=== PATIENT | male | born 1950 | race Caucasian/White ===

== ENCOUNTER 2019-11-30 19:43 | Inpatient (IN) | payer MEDICARE ==
[2019-11-30 20:10] LABS: BASOPHILS % (AUTO) 0.5 %; EOSINOPHILS # (AUTO) 0.2 10^3/uL (0.0-0.7); EOSINOPHILS % (AUTO) 1.9 %; HGB - HEMOGLOBIN 12.7 g/dL (14.0-18.0); LYMPHOCYTES # (AUTO) 2.2 10^3/uL (1.5-3.5); LYMPHOCYTES % (AUTO) 27.8 %; MEAN CORPUSCULAR HEMOGLOBIN 31.4 pg (27.0-31.0); MEAN CORPUSCULAR HGB CONC 34.2 g/dL (32.0-36.0); MEAN CORPUSCULAR VOLUME 91.6 fL (80.0-94.0); MEAN PLATELET VOLUME 9.3 fL (7.4-11.4); MONOCYTES # (AUTO) 0.5 10^3/uL (0.0-1.0); MONOCYTES % (AUTO) 6.4 %; NEUTROPHILS # (AUTO) 4.9 10^3/uL (1.5-6.6); NEUTROPHILS % (AUTO) 63.1 %; PLT - PLATELET COUNT 343 10^3/uL (130-450); RED BLOOD COUNT 4.05 10^6/uL (4.70-6.10); RED CELL DISTRIBUTION WIDTH 12.1 % (12.0-15.0); WHITE BLOOD COUNT 7.8 x10^3/uL (4.8-10.8)
[2019-11-30 20:23] LABS: ALBUMIN/GLOBULIN RATIO 1.2 (1.0-2.2); BILIRUBIN,TOTAL 0.9 mg/dL (0.2-1.0); CREATININE 0.9 mg/dL (0.6-1.2); TOTAL PROTEIN 7.3 g/dL (6.7-8.2)
[2019-11-30] MEDS ORDERED: IOVERSOL 320 100 ML VIAL IVP ONE ×2 (20:27→21:21)
[2019-11-30] MEDS ORDERED: FAMOTIDINE 20 MG TABLET PO STA (20:33)
[2019-11-30] MEDS ORDERED: MAG HYDROX/AL HYDROX/SIMETH 30 ML UDC PO STA (20:33)
[2019-11-30] MEDS ORDERED: LIDOCAINE VISCOUS 2% 15 ML UDC MM STA (20:33)
[2019-11-30] MEDS ORDERED: SUCRALFATE 1 GM/10 ML UDC PO STA (20:33)
--- NOTE | 2019-11-30 20:34 | ED Physician Documentation ---
PD HPI ABD PAIN - Stated complaint Stated Complaint: VOMITING/IRREGULAR BLOOD PRESSURE - Chief complaint Chief Complaint: Abd Pain - History obtained from History obtained from: Patient - History of Present Illness Timing - onset: How many days ago (3) Timing - duration: Days (3) Timing - details: Gradual onset Pain level max: 7 Pain level now: 6 Quality: Aching, Pain Location: Epigastric Radiation: No: Chest, , Lower back, Left flank, Left shoulder, Right flank, Right shoulder, Upper back Improved by: Eating Worsened by: Other (Nothing) Associated symptoms: Nausea, Vomiting. No: Fever, Hematemesis, Diarrhea, Constipation Recently seen: Not recently seen - Additional information Additional information: 68-year-old male with stage IV prostate cancer presents to the emergency department with epigastric pain. He states it does not bother him in the morning, but worsens throughout the day. He has been taking Prilosec and Tums without relief. Has had vomiting as well. No fevers. No abdominal distention. Review of Systems Ten Systems: 10 systems reviewed and negative Constitutional: denies: Fever, Chills Throat: denies: Sore throat Cardiac: denies: Chest pain / pressure Respiratory: denies: Cough GI: denies: Nausea, Vomiting, Diarrhea : denies: Dysuria Skin: denies: Rash Musculoskeletal: denies: Neck pain, Back pain Neurologic: denies: Headache PD PAST MEDICAL HISTORY - Past Medical History Past Medical History: Yes Other Past Medical History: prostate cancer - Past Surgical History Past Surgical History: No - Allergies Allergies/Adverse Reactions: Allergies Allergy/AdvReac Type Severity Reaction Status Date / Time No Known Drug Allergies Allergy Verified 11/30/19 19:50 - Living Situation Living Situation: reports: With family Living Arrangement: reports: At home - Social History Does the pt have substance abuse?: No - Family History Family history: reports: Non contributory PD ED PE NORMAL - Vitals Vital signs reviewed: Yes - General General: Alert and oriented X 3, No acute distress - HEENT HEENT: Moist mucous membranes - Neck Neck: Supple, no meningeal sign - Cardiac Cardiac: RRR - Respiratory Respiratory: No respiratory distress, Clear bilaterally - Abdomen Abdomen: Soft, Non tender, Non distended Results - Vitals Vitals: Vital Signs - 24 hr 11/30/19 11/30/19 19:47 20:29 Temperature 36.8 C Heart Rate 97 90 Respiratory 18 21 Rate Blood Pressure 205/102 H 191/117 H O2 Saturation 98 100 Oxygen O2 Source Room air - Labs Labs: Laboratory Tests 11/30/19 11/30/19 11/30/19 20:04 20:04 20:04 WBC 7.8 RBC 4.05 L Hgb 12.7 L Hct 37.1 L MCV 91.6 MCH 31.4 H MCHC 34.2 RDW 12.1 Plt Count 343 MPV 9.3 Neut # (Auto) 4.9 Lymph # (Auto) 2.2 [place] # (Auto) 0.5 Eos # (Auto) 0.2 Baso # (Auto) 0.0 Absolute Nucleated RBC 0.00 Nucleated RBC % 0.0 Sodium 139 Potassium 3.3 L Chloride 101 Carbon Dioxide 27 Anion Gap 11.0 BUN 15 Creatinine 0.9 Estimated GFR (MDRD) 84 L Glucose 148 H Calcium 9.0 Total Bilirubin 0.9 AST 13 ALT 10 Alkaline Phosphatase 64 Troponin I High Sens 4.5 Total Protein 7.3 Albumin 4.0 Globulin 3.3 Albumin/Globulin Ratio 1.2 Lipase 35 - Rads (name of study) CT abd/pelvis Radiology: Prelim report reviewed, EMP read contemporaneously, See rad report (Gallbladder wall thickening with mild surrounding inflammatory changes, concerning for developing cholecystitis. Innumerable diffuse sclerotic osseous metastases. ) PD MEDICAL DECISION MAKING - ED course Complexity details: reviewed results, re-evaluated patient, considered differential, d/w patient ED course: 68-year-old male presents to the emergency department with epigastric pain for the past several days. Appears to have cholecystitis on CT scan. Ultrasound was ordered as well. Discussed the case with Dr. Rodriguez, general surgery who will place the patient in the hospital. We will start on IV antibiotics. Pain well controlled. No fever. He is on Xarelto for a DVT in the right upper extremity several years ago when his prostate cancer was first diagnosed. This document was made in part using voice recognition software. While efforts are made to proofread this document, sound alike and grammatical errors may occur. Departure - Departure Disposition: ED Place in Observation Clinical Impression: Cholecystitis Hypertension Qualifiers: Hypertension type: unspecified Qualified Code(s): I10 - Essential (primary) hypertension Condition: Stable
[2019-11-30] MEDS ORDERED: HYDROmorphone 1 MG/ML SYRINGE IVP STA (21:34)
--- NOTE | 2019-11-30 21:34 | CT Report ---
Reason: epigastric pain, vomiting, prostate CA Procedure Date: 11/30/2019 Accession Number: [id number] / [id number] Procedure: CT - Abdomen/Pelvis W CPT Code: Final Report FULL RESULT: EXAM: CT ABDOMEN AND PELVIS EXAM DATE: 11/30/2019 09:18 PM. CLINICAL HISTORY: Epigastric pain, vomiting, prostate CA. COMPARISONS: None. TECHNIQUE: Routine helical CT imaging was performed through the abdomen and pelvis. IV contrast: OPTIRAY 320. Enteric contrast: No. Reconstructions: Coronal and sagittal. In accordance with CT protocol optimization, one or more of the following dose reduction techniques were utilized for this exam: automated exposure control, adjustment of mA and/or KV based on patient size, or use of iterative reconstructive technique. FINDINGS: ABDOMEN: Lung Bases: Incompletely included lower lungs demonstrate scattered atelectasis. Heart size is within normal limits. No basilar effusions. Liver: 7 mm low attenuating lesion, likely a cyst. Spleen: Unremarkable. Pancreas: Unremarkable. Gallbladder/Bile Ducts: Gallbladder demonstrates mild wall thickening and pericholecystic inflammatory changes. Small cystic change in the gallbladder fundus could reflect adenomyomatosis. Biliary tree is normal caliber. Adrenal Glands: Unremarkable. Kidneys: Right kidney is unremarkable. Left upper renal scarring. Peritoneum/Mesentery/Bowel: No free fluid, free air, or collection. No intestinal obstruction or inflammation. The appendix is within normal limits. Lymph nodes: No mesenteric, periportal, or retroperitoneal lymphadenopathy. Vasculature: Abdominal aorta is nonaneurysmal. Portal vein is patent. Hepatic veins are patent. PELVIS: The bladder is unremarkable for the degree of distention. Prostate is present. No pelvic lymphadenopathy. Bones: Innumerable sclerotic metastatic lesions throughout the visualized osseous structures. IMPRESSION: Gallbladder wall thickening with mild surrounding inflammatory changes, concerning for developing cholecystitis. Innumerable diffuse sclerotic osseous metastases. RADIA
[2019-11-30] MEDS ORDERED: PIPERACILLIN/TAZOBACTAM 4.5 GM in SODIUM CHLORIDE 0.9% MINIBAG 100 ML IV STA (21:49)
[2019-11-30 21:54] LABS: BILIRUBIN,URINE NEGATIVE (NEGATIVE); GLUCOSE, URINE (UA) NEGATIVE (NEGATIVE); KETONES,URINE (UA) NEGATIVE (NEGATIVE); LEUKOCYTE ESTERASE, URINE NEGATIVE (NEGATIVE); NITRITE,URINE NEGATIVE (NEGATIVE); OCCULT BLOOD,URINE NEGATIVE (NEGATIVE); PROTEIN,URINE NEGATIVE (NEGATIVE); UROBILINOGEN,URINE 1 (NORMAL) E.U./dL (NORMAL)
[2019-11-30 22:04] LABS: CLARITY,URINE CLEAR (CLEAR)
--- NOTE | 2019-11-30 22:45 | Ultrasound Report ---
Reason: RUQ abd pain Procedure Date: 11/30/2019 Accession Number: [id number] / [id number] Procedure: US - Abdomen Limited CPT Code: Final Report FULL RESULT: EXAM: ABDOMEN ULTRASOUND LIMITED, RUQ EXAM DATE: 11/30/2019 10:24 PM. CLINICAL HISTORY: RUQ abd pain. COMPARISON: None. TECHNIQUE: Real-time scanning was performed with static images obtained. FINDINGS: Liver: Mildly echogenic and heterogeneous. 90.1 cm. Main portal vein flow: Mild wall thickening. Gallbladder sludge. Reported positive sonographic Capellan sign. 1 cm non-mobile echogenic structure, likely polyp. Gallbladder: No stones, wall thickening, or sonographic Capellan's sign. Biliary System: CBD measures 4 mm. No intrahepatic ductal dilatation. Other: Right kidney demonstrates no hydronephrosis. Visualized portions of the pancreas are unremarkable. IMPRESSION: Findings suspicious for cholecystitis, with wall thickening, sludge, and a positive sonographic Capellan sign. Surgical consultation is recommended. 1 cm gallbladder polyp. Mild hepatic steatosis. RADIA
[2019-11-30] MEDS ORDERED: ONDANSETRON 4 MG/2 ML VIAL IVP PRN (23:03)
--- NOTE | 2019-11-30 23:04 | CONSULTATION NOTE ---
Referring Provider Name of Referring Provider:: ED Dr. Byers Consult Date: 11/30/19 Chief Complaint - Chief Complaint Chief Complaint: abdominal pain History of Present Illness - Admitted From Admitted From:: ED - History Obtained From History obtained from: pt and chart - History of Present Illness HPI Comment/Other: Heidi 68yo M presents to the hospital with a week of progressive and new abdominal pain. He came in today primarily because his blood pressure was 200/100s and had been increasing all week with his pain. He describes his pain as worsening through the day, starting as a 'bubble' or pressure in [place] area then becoming a sharper pain after lunch; one day he did not eat and pain was not as bad. He notices it most after meals. Has never had similar pain. Started prilosec last week and has taken tums and baking soda thinking it was heartburn or an ulcer but this has only minimally helped. Has had minimal nausea and vomiting. On presentation to the ED, his BP was 200/100s. It has persisted in the 180- 190s/100s for the past few hours. It does not run this high normally and he thinks it is due to the pain. Labs are largely normal with no leukocytosis and normal liver enzymes but CT is suggestive of cholecystitis. His exam is consistent with this. US is pending to confirm. Of note, pt is on oral chemo meds for stage IV prostate cancer and xarelto for a DVT. He has had no abdominal surgeries. History - Past Medical History Cardiovascular: reports: Hypertension, Deep vein thrombosis Respiratory: reports: None Neuro: reports: None Endocrine/Autoimmune: reports: None GI: reports: None : reports: Other (prostate cancer) HEENT: reports: None Psych: reports: None Musculoskeletal: reports: Other (bone mets) Derm: reports: None Other Past Medical History: prostate cancer - Family & Social History Living arrangement: At home Living Situation: With family - Substance History Use: Uses substance without health or social issues: NONE Meds/Allgy - Allergies Allergies/Adverse Reactions: Allergies Allergy/AdvReac Type Severity Reaction Status Date / Time No Known Drug Allergies Allergy Verified 11/30/19 19:50 Review of Systems - Cardiovascular Cariovascular: reports: Other (severe hypertension) - Gastrointestinal Gastrointestinal: reports: Abdominal pain, Nausea, Vomiting - Hematologic/Lymphatic Hematologic/Lymphatic: reports: Blood clots - All Other Systems All Other Systems: reports: Reviewed and negative Exam - Vital Signs Reviewed Vital Signs: Yes Vital Signs: Vital Signs x48h Temp Pulse Resp BP Pulse Ox 11/30/19 22:09 80 23 168/103 H 100 11/30/19 20:29 90 21 191/117 H 100 11/30/19 19:47 36.8 C 97 18 205/102 H 98 - Physical Exam Comments/Other: AAO, NAD, overweight male EOMI, MMM, no scleral icterus unlabored RA abd soft, no distension, ttp RUQ and R flank; no abdominal incisions MAEW visible skin warm, dry, and intact Conclusion and Plan - Lab Results Laboratory Results 11/30/19 21:45: Urine Color YELLOW, Urine Clarity CLEAR, Urine pH 7.0, Ur Specific [place] 1.010, Urine Protein NEGATIVE, Urine Glucose (UA) NEGATIVE, Urine Ketones NEGATIVE, Urine Occult Blood NEGATIVE, Urine Nitrite NEGATIVE, Urine Bilirubin NEGATIVE, Urine Urobilinogen 1 (NORMAL), Ur Leukocyte Esterase NEGATIVE, Ur Microscopic Review NOT INDICATED, Urine Culture Comments NOT INDICATED 11/30/19 20:04: Troponin I High Sens 4.5 11/30/19 20:04: Sodium 139, Potassium 3.3 L, Chloride 101, Carbon Dioxide 27, Anion Gap 11.0, BUN 15, Creatinine 0.9, Estimated GFR (MDRD) 84 L, Glucose 148 H, Calcium 9.0, Total Bilirubin 0.9, AST 13, ALT 10, Alkaline Phosphatase 64, Total Protein 7.3, Albumin 4.0, Globulin 3.3, Albumin/Globulin Ratio 1.2, Lipase 35 11/30/19 20:04: WBC 7.8, RBC 4.05 L, Hgb 12.7 L, Hct 37.1 L, MCV 91.6, MCH 31.4 H, MCHC 34.2, RDW 12.1, Plt Count 343, MPV 9.3, Neut # (Auto) 4.9, Lymph # (Auto) 2.2, [place] # (Auto) 0.5, Eos # (Auto) 0.2, Baso # (Auto) 0.0, Absolute Nucleated RBC 0.00, Nucleated RBC % 0.0 - Diagnostic Imaging Results Diagnostic Imaging Results: positive: Final report reviewed, Read contemporaneously - Diagnosis Diagnosis: Cholecystitis. Hypertensive Urgency. Coagulopathy - Plan Plan: Cholecystitis - history, exam, and imaging suggestive of acute cholecystitis - plan for lap prema this admission, pt understands and is agreeable to plan - hopefully tomorrow pending improvement of hypertension; NPO after midnight Coagulopathy - due to Xarelto for DVT, did take today - hold in preparation for surgery Hypertensive Urgency - severe hypertension, per pt present all week due to pain and is not his baseline - medicine to assess and manage, appreciate assistance Stage IV Pancreatic Cancer - on daily PO meds - start once able but pt does not have his meds with him; plan per medicine team
--- NOTE | 2019-11-30 23:15 | HISTORY & PHYSICAL EXAMINATION ---
Chief Complaint - Chief Complaint Chief Complaint: abdominal pain History of Present Illness - Admitted From Admitted From:: [facility] - History Obtained From Records Reviewed: yes History obtained from: patient - History of Present Illness HPI Comment/Other: Patient is a 68 y/o male with prostate cancer metastatic to bone. He is on chemotherapy and had radiation as recently as 1 week ago. His oncologist is Dr Valencia with [facility]. He presented to the ED with complain of right upper quadrant abdominal pain and pain in his upper sternum. His symptoms started 5 days ago, and seemed to be worse a few hours after most meals. He reports pain with deep inspiration, nausea and vomiting with these episodes. After 5 days of these symptoms it became unbearable so he sought medical attention. He reported associated elevation in his blood pressure with these episodes with reading as high as an SBP of 195 at home. In the ED work up included a CT and US of abd/pelvis which suggested cholecystitis. He has history of a right upper extremity DVT for which he was put on xarelto. It was a first and only occurrence of a blood clot but he has been on xarelto for about 1 year now. he last took it at 7pm on 11/30/2019. He was presented for admission by the hospitalist service in light of his co-morbidities. Currently he denies any pain, however he had just been give some pain medication. History - Past Medical History Cardiovascular: reports: Hypertension, Deep vein thrombosis Respiratory: reports: None Neuro: reports: None Endocrine/Autoimmune: reports: None GI: reports: None : reports: Other (prostate cancer) HEENT: reports: None Psych: reports: None Musculoskeletal: reports: Other (bone mets) Derm: reports: None Other Past Medical History: prostate cancer with mets to bone - Past Surgical History Ortho: reports: Other (left ankle surgery with screws) - Family & Social History Family History Comment/Other: father: Hx of aneurysm and stroke Living arrangement: At home Living Situation: With family - Substance History Use: Uses substance without health or social issues: NONE - POLST Patient has POLST: No POLST Status: Full Code Meds/Allgy - Allergies Allergies/Adverse Reactions: Allergies Allergy/AdvReac Type Severity Reaction Status Date / Time No Known Drug Allergies Allergy Verified 11/30/19 19:50 Review of Systems - Constitutional Constitutional: denies: Fatigue, Fever, Chills - Eyes Eyes: denies: Pain, Vision loss - Ears, Nose & Throat Ears, Nose & Throat: denies: Vertigo, Sore throat - Cardiovascular Cariovascular: denies: Chest pain, Lightheadedness, Exertional dyspnea - Respiratory Respiratory: denies: Cough, Sputum production, Wheezing, SOB at rest, SOB with exertion - Gastrointestinal Gastrointestinal: reports: Abdominal pain, Nausea, Vomiting. denies: Constipation, Diarrhea, Coffee grounds emesis, Reflux/heartburn - Genitourinary Genitourinary: denies: Dysuria, Frequency, Urgency, Hematuria - Musculoskeletal Musculoskeletal: denies: Muscle pain, Back pain, Muscle aches - Integumentary Integumentary: denies: Rash, Pruritis, Lesions, Dryness - Neurological Neurological: denies: General weakness, Headache, Dizziness - Psychiatric Psychiatric: denies: Depression, Anxiety - Endocrine Endocrine: denies: Polyuria, Polydypsia - Hematologic/Lymphatic Hematologic/Lymphatic: denies: Anemia, Bruising, Petechiae Prior Level of Functionality: He is very independent of activities of daily living and very active Exam - Vital Signs Vital Signs: Vital Signs x48h Temp Pulse Resp BP Pulse Ox 11/30/19 22:09 80 23 168/103 H 100 11/30/19 20:29 90 21 191/117 H 100 11/30/19 19:47 36.8 C 97 18 205/102 H 98 - Physical Exam General Appearance: positive: Alert, Mild distress Eyes Bilateral: positive: PERRL, EOMI ENT: positive: No signs of dehydration Neck: positive: No JVD, Trachea midline Respiratory: positive: Chest non-tender, No respiratory distress, Breath sounds nml. negative: Wheezes, Rales, Rhonchi Cardiovascular: positive: Regular rate & rhythm, No murmur Abdomen: positive: Nml bowel sounds, Tenderness (RUQ). negative: Guarding, Rebound Back: positive: Nml inspection Skin: positive: Color nml, Warm, Dry Extremities: positive: Non-tender, Full ROM, Nml appearance Neurologic/Psychiatric: positive: Oriented x3, Mood/affect nml Conclusion/Plan - Problem List (1) Cholecystitis Conclusion/Plan: Acute Patient NPO. On IV hydration with normal saline Pain management prn General Surgery (Dr Rodriguez) consulted Patient's last dose of xarelto was 7pm on 11/30/19. Recommendation is to wait at least 2 days after last dose before surgery. Patient's EKG shows Q waves suggestive of ol infarct. Patient denies knowledge of cardiac history Will order a stress test as part of pre-op eval (2) Hypertension Conclusion/Plan: Likely exacerbated by pain Labetalol prn for SBP> 160 Qualifiers: Hypertension type: unspecified Qualified Code(s): I10 - Essential (primary) hypertension (3) Prostate cancer metastatic to bone Conclusion/Plan: On oral chemotherapy s/p recent radiation Patient sees Dr Valencia at [facility] - Lab Results Fish Bones: 12/01/19 04:59 12/01/19 04:59 Core Measures - Anticipated LOS I expect patient to be DC'd or transferred within 96 hours.: Yes - DVT/VTE - Prophylaxis VTE/DVT Device ordered at admit?: Yes
--- NOTE | 2019-12-01 00:25 | XRAY Report ---
Reason: pre-op eval Procedure Date: 11/30/2019 Accession Number: [id number] / [id number] Procedure: XR - Chest 1 View X-Ray CPT Code: 04249 Final Report FULL RESULT: EXAM: CHEST RADIOGRAPHY EXAM DATE: 11/30/2019 11:49 PM. CLINICAL HISTORY: Pre-op eval. COMPARISON: None. TECHNIQUE: 1 view. FINDINGS: Lungs/Pleura: No focal opacities evident. No pleural effusion. No pneumothorax. Mediastinum: Within exam limitations, the cardiomediastinal contour is normal. Other: None. IMPRESSION: Normal single view chest. RADIA
[2019-12-01] MEDS: SODIUM CHLORIDE FLUSH 0.9% 10 ML SYRINGE IVP SCH ×3 (00:31→16:04)
[2019-12-01] MEDS: SODIUM CHLORIDE 0.9% 1,000 ML IV SCH ×3 (00:31→22:04)
[2019-12-01] MEDS: HYDROmorphone 0.5 MG/0.5 ML SYRINGE IVP PRN ×3 (00:49→17:29)
[2019-12-01] MEDS ORDERED: PIPERACILLIN/TAZOBACTAM 3.375 GM in SODIUM CHLORIDE 0.9% MINIBAG 100 ML IV SCH (03:00)
[2019-12-01] MEDS: PIPERACILLIN/TAZOBACTAM 3.375 GM in SODIUM CHLORIDE 0.9% MINIBAG 100 ML IV SCH ×3 (04:59→20:59)
[2019-12-01 05:06] LABS: BASOPHILS % (AUTO) 0.6 %; EOSINOPHILS # (AUTO) 0.2 10^3/uL (0.0-0.7); EOSINOPHILS % (AUTO) 2.1 %; HGB - HEMOGLOBIN 11.4 g/dL (14.0-18.0); LYMPHOCYTES # (AUTO) 1.9 10^3/uL (1.5-3.5); LYMPHOCYTES % (AUTO) 26.3 %; MEAN CORPUSCULAR HEMOGLOBIN 31.2 pg (27.0-31.0); MEAN CORPUSCULAR HGB CONC 34.7 g/dL (32.0-36.0); MEAN CORPUSCULAR VOLUME 90.1 fL (80.0-94.0); MEAN PLATELET VOLUME 9.2 fL (7.4-11.4); MONOCYTES # (AUTO) 0.6 10^3/uL (0.0-1.0); MONOCYTES % (AUTO) 8.2 %; NEUTROPHILS # (AUTO) 4.5 10^3/uL (1.5-6.6); NEUTROPHILS % (AUTO) 62.4 %; PLT - PLATELET COUNT 284 10^3/uL (130-450); RED BLOOD COUNT 3.65 10^6/uL (4.70-6.10); RED CELL DISTRIBUTION WIDTH 11.9 % (12.0-15.0); WHITE BLOOD COUNT 7.2 x10^3/uL (4.8-10.8)
[2019-12-01 05:15] LABS: CALCIUM 8.1 mg/dL (8.5-10.3); CREATININE 0.8 mg/dL (0.6-1.2)
[2019-12-01] MEDS: SODIUM CHLORIDE FLUSH 0.9% 10 ML SYRINGE IVP PRN (06:20)
[2019-12-01] MEDS: PANTOPRAZOLE 40 MG VIAL IVP SCH (06:20)
[2019-12-01] MEDS: DOCUSATE SODIUM 250 MG CAPSULE PO SCH (08:32)
--- NOTE | 2019-12-01 13:09 | PROVIDER PROGRESS NOTE ---
Assessment/Plan - Problem List (1) Cholecystitis Assessment/Plan: The plan is for GB surgery after the Xarelto has worn off for about 48 hours, therefore 12/03/19 would be his surgery, if he can be safely delayed. Gen surgery is following along. He is npo, getting gentle iv hydration and prn pain meds. Empiric iv antibiotics also ordered. (2) Abnormal EKG Assessment/Plan: The EKG showed inferior Q waves and posterior Q waves (early R/S transition), suggesting an old MO. He denies any past Hx of CAD, has never had a stress test. His risk factors for coronary artery disease are: male gender, HTN, unknown cholesterol status, and family history of cerebrovascular disease. He should undergo a stress test for cardiac risk assessment. If it is abnormal, his surgery may need to be done at another center, with coronary catherization before the surgery. (3) Pre-op evaluation Assessment/Plan: As above. The patient is agreeable to have a stress test today. (4) Hypertension Qualifiers: Hypertension type: unspecified Qualified Code(s): I10 - Essential (primary) hypertension Assessment/Plan: BP is still up news intern=mittently, even when he is not in pain. Will start iv Hydralazine for treatment. (5) Hypokalemia Assessment/Plan: Possibly this is from poor dietary intake for a week, due to the cholycystitis. His Med List is not reconciled yet, in fact it lists no meds whatsoever, so it is unknown if he is on po meds that may cause potassium loss (like a diuretic for HTN tx for example). Replace with iv K riders. Follow BMP daily. (6) Prostate cancer metastatic to bone Assessment/Plan: He gets chemo orally, unknown what med, which would currently be on hold anyway due to his npo status. (7) Hx of deep venous thrombosis Assessment/Plan: This was a first DVT but he has been on the Xarelto for nearly a year. Presumably this is because he is hypercoagulable from having a history of malignancy. - Current Meds Current Meds: Current Medications Generic Name Dose Route Start Last Admin Trade Name Freq PRN Reason Stop Dose Admin Docusate Sodium 250 - 500 mg 12/01/19 09:00 12/01/19 08:32 Colace 250mg Capsule PO 500 mg DAILY PHILIP Administration Hydromorphone HCl 0.5 mg 11/30/19 23:03 12/01/19 00:49 Dilaudid Inj Syringe IVP 0.5 mg Q2H PRN Administration Pain 8 to 10 Sodium Chloride 1,000 mls @ 100 mls/hr 11/30/19 23:45 12/01/19 10:22 Normal Saline 0.9% IV 100 mls/hr .Q10H PHILIP Administration Piperacillin Sod/Tazobactam 100 mls @ 25 mls/hr 12/01/19 05:00 12/01/19 09:55 Sod 3.375 gm/ Sodium Chloride IV Infused Q8H PHILIP Infusion Pantoprazole Sodium 40 mg 12/01/19 07:00 12/01/19 06:20 Protonix IVP 40 mg QDAC PHILIP Administration Sodium Chloride 10 ml 11/30/19 23:03 12/01/19 06:20 Normal Saline Flush 0.9% IVP 30 ml PRN PRN Administration NEEDED PER PROVIDER ORDERS Sodium Chloride 10 ml 12/01/19 01:00 12/01/19 08:32 Normal Saline Flush 0.9% IVP 10 ml 0100,0900,1700 PHILIP Administration - Lab Result Fish Bone Diagrams: 12/01/19 04:59 12/01/19 04:59 - Additional Planning My Orders: My Active Orders 12/01/19 14:00 Potassium Chloride/Water 10 mEq/100 mL q1h (Enter # of bags) Potassium Chlor 10 Meq/100 ml [Potassium Chloride] 10 meq in 100 ml IV Q1H Subjective - Subjective Patient Reports: No Complaints, Other (He specifically does not want to eat, since it has caused his RUQ pain for many days.) Objective Vital Signs: Vital Signs - 24 hr 11/30/19 11/30/19 11/30/19 19:47 20:29 22:09 Temperature 36.8 C Heart Rate 97 90 80 Heart Rate [ Brachial] Respiratory 18 21 23 Rate Blood Pressure 205/102 H 191/117 H 168/103 H Blood Pressure [Right Brachial artery] O2 Saturation 98 100 100 12/01/19 12/01/19 12/01/19 00:33 00:35 08:00 Temperature 37.0 C 37.0 C 36.7 C Heart Rate 71 Heart Rate [ 77 69 Brachial] Respiratory 17 18 18 Rate Blood Pressure Blood Pressure 159/81 H 169/89 H [Right Brachial artery] O2 Saturation 98 97 97 Oxygen O2 Source Room air I&O (Last 24 Hrs): Intake and Output Totals x24h 11/29/19 11/30/19 12/01/19 23:59 23:59 23:59 Intake Total 100 1085 Output Total 450 525 Balance -350 560 General: Alert, Oriented x3 HEENT: Mucous membr. moist/pink Neck: Supple, No JVD Neuro: Alert, Non Focal Cardiovascular: Regular rate, No murmurs Respiratory: No respiratory distress, Breath sounds nml Abdomen: Soft, No tenderness, Other (No guarding or rebound) Extremities: No edema - Results Results: Laboratory Results WBC 7.2 x10^3/uL (4.8-10.8) 12/01/19 04:59 RBC 3.65 10^6/uL (4.70-6.10) L 12/01/19 04:59 Hgb 11.4 g/dL (14.0-18.0) L 12/01/19 04:59 Hct 32.9 % (42.0-52.0) L 12/01/19 04:59 MCV 90.1 fL (80.0-94.0) 12/01/19 04:59 MCH 31.2 pg (27.0-31.0) H 12/01/19 04:59 MCHC 34.7 g/dL (32.0-36.0) 12/01/19 04:59 RDW 11.9 % (12.0-15.0) L 12/01/19 04:59 Plt Count 284 10^3/uL (130-450) 12/01/19 04:59 MPV 9.2 fL (7.4-11.4) 12/01/19 04:59 Neut # (Auto) 4.5 10^3/uL (1.5-6.6) 12/01/19 04:59 Lymph # (Auto) 1.9 10^3/uL (1.5-3.5) 12/01/19 04:59 [place] # (Auto) 0.6 10^3/uL (0.0-1.0) 12/01/19 04:59 Eos # (Auto) 0.2 10^3/uL (0.0-0.7) 12/01/19 04:59 Baso # (Auto) 0.0 10^3/uL (0.0-0.1) 12/01/19 04:59 Absolute Nucleated RBC 0.00 x10^3/uL 12/01/19 04:59 Nucleated RBC % 0.0 /100WBC 12/01/19 04:59 Sodium 140 mmol/L (135-145) 12/01/19 04:59 Potassium 3.2 mmol/L (3.5-5.0) L 12/01/19 04:59 Chloride 104 mmol/L (101-111) 12/01/19 04:59 Carbon Dioxide 28 mmol/L (21-32) 12/01/19 04:59 Anion Gap 8.0 (6-13) 12/01/19 04:59 BUN 13 mg/dL (6-20) 12/01/19 04:59 Creatinine 0.8 mg/dL (0.6-1.2) 12/01/19 04:59 Estimated GFR (MDRD) 96 (>89) 12/01/19 04:59 Glucose 111 mg/dL (70-100) H 12/01/19 04:59 Calcium 8.1 mg/dL (8.5-10.3) L 12/01/19 04:59 Total Bilirubin 0.9 mg/dL (0.2-1.0) 11/30/19 20:04 AST 13 IU/L (10-42) 11/30/19 20:04 ALT 10 IU/L (10-60) 11/30/19 20:04 Alkaline Phosphatase 64 IU/L (42-121) 11/30/19 20:04 Troponin I High Sens 4.5 ng/L (2.3-19.7) 11/30/19 20:04 Total Protein 7.3 g/dL (6.7-8.2) 11/30/19 20:04 Albumin 4.0 g/dL (3.2-5.5) 11/30/19 20:04 Globulin 3.3 g/dL (2.1-4.2) 11/30/19 20:04 Albumin/Globulin Ratio 1.2 (1.0-2.2) 11/30/19 20:04 Lipase 35 U/L (22-51) 11/30/19 20:04 Urine Color YELLOW 11/30/19 21:45 Urine Clarity CLEAR (CLEAR) 11/30/19 21:45 Urine pH 7.0 PH (5.0-7.5) 11/30/19 21:45 Ur Specific [place] 1.010 (1.002-1.030) 11/30/19 21:45 Urine Protein NEGATIVE mg/dL (NEGATIVE) 11/30/19 21:45 Urine Glucose (UA) NEGATIVE mg/dL (NEGATIVE) 11/30/19 21:45 Urine Ketones NEGATIVE mg/dL (NEGATIVE) 11/30/19 21:45 Urine Occult Blood NEGATIVE (NEGATIVE) 11/30/19 21:45 Urine Nitrite NEGATIVE (NEGATIVE) 11/30/19 21:45 Urine Bilirubin NEGATIVE (NEGATIVE) 11/30/19 21:45 Urine Urobilinogen 1 (NORMAL) E.U./dL (NORMAL) 11/30/19 21:45 Ur Leukocyte Esterase NEGATIVE (NEGATIVE) 11/30/19 21:45 Ur Microscopic Review NOT INDICATED 11/30/19 21:45 Urine Culture Comments NOT INDICATED 11/30/19 21:45
[2019-12-01] MEDS ORDERED: REGADENOSON 0.4 MG/5 ML SYRINGE IVP ONE ×2 (13:25→14:54)
[2019-12-01] MEDS ORDERED: AMINOPHYLLINE 250 MG/10 ML VIAL ONE (13:26)
--- NOTE | 2019-12-01 14:10 | PROVIDER PROGRESS NOTE ---
Assessment/Plan - Problem List (1) Cholecystitis Assessment/Plan: Acute Cholecystitis, clinically improving with medical management. Rec: continue with cardiac evaluation, NPO, IV antibiotics; surgery on 12/02 after rivaroxiban effects have worn off and cleared for surgery by hospitalists. - Current Meds Current Meds: Current Medications Generic Name Dose Route Start Last Admin Trade Name Freq PRN Reason Stop Dose Admin Docusate Sodium 250 - 500 mg 12/01/19 09:00 12/01/19 08:32 Colace 250mg Capsule PO 500 mg DAILY PHILIP Administration Hydromorphone HCl 0.5 mg 11/30/19 23:03 12/01/19 13:54 Dilaudid Inj Syringe IVP 0.5 mg Q2H PRN Administration Pain 8 to 10 Sodium Chloride 1,000 mls @ 100 mls/hr 11/30/19 23:45 12/01/19 13:57 Normal Saline 0.9% IV 0 mls/hr .Q10H PHILIP Infusion Piperacillin Sod/Tazobactam 100 mls @ 25 mls/hr 12/01/19 05:00 12/01/19 09:55 Sod 3.375 gm/ Sodium Chloride IV Infused Q8H PHILIP Infusion Pantoprazole Sodium 40 mg 12/01/19 07:00 12/01/19 06:20 Protonix IVP 40 mg QDAC PHILIP Administration Sodium Chloride 10 ml 11/30/19 23:03 12/01/19 06:20 Normal Saline Flush 0.9% IVP 30 ml PRN PRN Administration NEEDED PER PROVIDER ORDERS Sodium Chloride 10 ml 12/01/19 01:00 12/01/19 08:32 Normal Saline Flush 0.9% IVP 10 ml 0100,0900,1700 PHILIP Administration - Lab Result Lab results reviewed: Yes Fish Bone Diagrams: 12/01/19 04:59 12/01/19 04:59 - Diagnostic Imaging Results Diagnostic Imaging Results: Final report reviewed Diagnostic Imaging Results Comments: imaging studies show thickened gallbladder wall with 1 cm polyp vs stone; nl bile ducts. - Additional Planning Condition/Complexity: Improved Time Spent: 15-30 minutes Subjective - Subjective Patient Reports: Feeling Better, Resting Comfortably, Abdominal Pain (improved; no n/v) Objective Vital Signs: Vital Signs - 24 hr 11/30/19 11/30/19 11/30/19 19:47 20:29 22:09 Temperature 36.8 C Heart Rate 97 90 80 Heart Rate [ Brachial] Respiratory 18 21 23 Rate Blood Pressure 205/102 H 191/117 H 168/103 H Blood Pressure [Right Brachial artery] O2 Saturation 98 100 100 12/01/19 12/01/19 12/01/19 00:33 00:35 08:00 Temperature 37.0 C 37.0 C 36.7 C Heart Rate 71 Heart Rate [ 77 69 Brachial] Respiratory 17 18 18 Rate Blood Pressure Blood Pressure 159/81 H 169/89 H [Right Brachial artery] O2 Saturation 98 97 97 Oxygen O2 Source Room air I&O (Last 24 Hrs): Intake and Output Totals x24h 11/29/19 11/30/19 12/01/19 23:59 23:59 23:59 Intake Total 100 1443.333 Output Total 450 525 Balance -350 918.333 General: Alert, Oriented x3, Cooperative, No acute distress HEENT: Mucous membr. moist/pink Neck: No JVD Neuro: Alert Cardiovascular: Regular rate, Normal S1, Normal S2, No murmurs Respiratory: Chest non-tender, No respiratory distress, Breath sounds nml Abdomen: Normal bowel sounds, Soft, No hepatospenomegaly, No masses, Other (tender in RUQ to deep palpation and with inspiration/mildly + Capellan's sign) Extremities: No edema, No tenderness/swelling - Results Results: Laboratory Results WBC 7.2 x10^3/uL (4.8-10.8) 12/01/19 04:59 RBC 3.65 10^6/uL (4.70-6.10) L 12/01/19 04:59 Hgb 11.4 g/dL (14.0-18.0) L 12/01/19 04:59 Hct 32.9 % (42.0-52.0) L 12/01/19 04:59 MCV 90.1 fL (80.0-94.0) 12/01/19 04:59 MCH 31.2 pg (27.0-31.0) H 12/01/19 04:59 MCHC 34.7 g/dL (32.0-36.0) 12/01/19 04:59 RDW 11.9 % (12.0-15.0) L 12/01/19 04:59 Plt Count 284 10^3/uL (130-450) 12/01/19 04:59 MPV 9.2 fL (7.4-11.4) 12/01/19 04:59 Neut # (Auto) 4.5 10^3/uL (1.5-6.6) 12/01/19 04:59 Lymph # (Auto) 1.9 10^3/uL (1.5-3.5) 12/01/19 04:59 Petroleum # (Auto) 0.6 10^3/uL (0.0-1.0) 12/01/19 04:59 Eos # (Auto) 0.2 10^3/uL (0.0-0.7) 12/01/19 04:59 Baso # (Auto) 0.0 10^3/uL (0.0-0.1) 12/01/19 04:59 Absolute Nucleated RBC 0.00 x10^3/uL 12/01/19 04:59 Nucleated RBC % 0.0 /100WBC 12/01/19 04:59 Sodium 140 mmol/L (135-145) 12/01/19 04:59 Potassium 3.2 mmol/L (3.5-5.0) L 12/01/19 04:59 Chloride 104 mmol/L (101-111) 12/01/19 04:59 Carbon Dioxide 28 mmol/L (21-32) 12/01/19 04:59 Anion Gap 8.0 (6-13) 12/01/19 04:59 BUN 13 mg/dL (6-20) 12/01/19 04:59 Creatinine 0.8 mg/dL (0.6-1.2) 12/01/19 04:59 Estimated GFR (MDRD) 96 (>89) 12/01/19 04:59 Glucose 111 mg/dL (70-100) H 12/01/19 04:59 Calcium 8.1 mg/dL (8.5-10.3) L 12/01/19 04:59 Total Bilirubin 0.9 mg/dL (0.2-1.0) 11/30/19 20:04 AST 13 IU/L (10-42) 11/30/19 20:04 ALT 10 IU/L (10-60) 11/30/19 20:04 Alkaline Phosphatase 64 IU/L (42-121) 11/30/19 20:04 Troponin I High Sens 4.5 ng/L (2.3-19.7) 11/30/19 20:04 Total Protein 7.3 g/dL (6.7-8.2) 11/30/19 20:04 Albumin 4.0 g/dL (3.2-5.5) 11/30/19 20:04 Globulin 3.3 g/dL (2.1-4.2) 11/30/19 20:04 Albumin/Globulin Ratio 1.2 (1.0-2.2) 11/30/19 20:04 Lipase 35 U/L (22-51) 11/30/19 20:04 Urine Color YELLOW 11/30/19 21:45 Urine Clarity CLEAR (CLEAR) 11/30/19 21:45 Urine pH 7.0 PH (5.0-7.5) 11/30/19 21:45 Ur Specific [place] 1.010 (1.002-1.030) 11/30/19 21:45 Urine Protein NEGATIVE mg/dL (NEGATIVE) 11/30/19 21:45 Urine Glucose (UA) NEGATIVE mg/dL (NEGATIVE) 11/30/19 21:45 Urine Ketones NEGATIVE mg/dL (NEGATIVE) 11/30/19 21:45 Urine Occult Blood NEGATIVE (NEGATIVE) 11/30/19 21:45 Urine Nitrite NEGATIVE (NEGATIVE) 11/30/19 21:45 Urine Bilirubin NEGATIVE (NEGATIVE) 11/30/19 21:45 Urine Urobilinogen 1 (NORMAL) E.U./dL (NORMAL) 11/30/19 21:45 Ur Leukocyte Esterase NEGATIVE (NEGATIVE) 11/30/19 21:45 Ur Microscopic Review NOT INDICATED 11/30/19 21:45 Urine Culture Comments NOT INDICATED 11/30/19 21:45 ABX Reporting Has patient been on IV antibiotics over the past 48 hours?: No
[2019-12-01] MEDS: POTASSIUM CHLOR 10 MEQ/100 ML 10 MEQ/100 ML BAG IV SCH ×3 (14:54→17:13)
--- NOTE | 2019-12-01 15:49 | Nuclear Medicine Report ---
Reason: abnormal ekg Procedure Date: 12/01/2019 Accession Number: [id number] / [id number] Procedure: NM - Myocardial Perfusion STR/RST CPT Code: Final Report FULL RESULT: EXAM: SINGLE-ISOTOPE PHARMACOLOGICAL STRESS TEST WITH REGADENOSON. SINGLE-ISOTOPE AND ONE-DAY REST/STRESS MYOCARDIAL PERFUSION SCANS WITH TOMOGRAPHIC IMAGING, QUANTITATIVE ANALYSIS, WALL MOTION ANALYSIS AND CALCULATION OF EJECTION FRACTION. EXAM DATE: 12/01/2019 03:07 PM. CLINICAL HISTORY: Abnormal ekg. preoperative evaluation. COMPARISON: None. TECHNIQUE: After the intravenous administration of 10.3 mCi of Tc-99m sestamibi, a rest myocardial perfusion scan was done with tomography. Motion correction was applied when appropriate. After an appropriate delay, pharmacological stress was performed with the infusion of 0.4 mg regadenoson per protocol. According to protocol, 42.8 mCi of Tc-99m sestamibi was injected for stress myocardial perfusion scan. Motion correction was applied when appropriate. Gated tomographic images were obtained for wall motion analysis and computation of left ventricular ejection fraction. FINDINGS: Perfusion images: Left ventricular chamber size appears normal at rest and unchanged at stress. No convincing fixed perfusion deficits. Probable moderate inferior wall diaphragmatic attenuation artifact. No convincing reversible perfusion deficits. SSS 12, SRS 6, SDS 6. Gated images: No convincing focal wall motion abnormality. Calculated left ventricular EDV 115 mL, ESV 47 mL. The left ventricular ejection fraction is estimated at 59% (normal > 50%). IMPRESSION: 1. No convincing reversible perfusion deficits to indicate stress-induced ischemia. 2. No convincing fixed perfusion deficits. 3. Left ventricular ejection fraction of 59% (normal > 50%). Please correlate findings with stress ECG tracings and procedure notes. RADIA
[2019-12-01] MEDS ORDERED: hydrALAZINE INJ 20 MG/ML VIAL ONE (15:57)
[2019-12-01] MEDS: hydrALAZINE INJ 20 MG/ML VIAL IVP SCH (15:57)
--- NOTE | 2019-12-01 16:46 | CARDIAC PROCEDURE NOTE ---
DATE OF SERVICE: 12/01/2019 Physician: Vickie Metz MD INDICATION: Abnormal EKG. CARDIAC RISK FACTORS: Male gender, hypertension, family history of cerebrovascular disease, unknown cholesterol status. DESCRIPTION OF PROCEDURE: After signing informed consent, the patient underwent a Lexiscan pharmaceutical stress test with nuclear myocardial perfusion imaging. RESTING HEART RATE: 77. PEAK HEART RATE: 109. RESTING BLOOD PRESSURE: 178/98. PEAK BLOOD PRESSURE: 184/96. Lexiscan was infused per protocol. The patient developed brief flushing and shortness of breath, followed by brief chest pressure that he rated 3/10. It resolved spontaneously. There was no nausea. Oxygen saturation was 94-98% on room air throughout the entire test. RESTING EKG: Normal sinus rhythm, deep inferior Q waves with biphasic/flat inferior T waves and also Q waves present in V4 through V6, which could be secondary to LVH voltage, which is present. There is also early R/S transition suggestive of a posterior ME. EKG AT PEAK: New flattening of T waves in leads V4 through V6. SUMMARY 1. Abnormal resting EKG. 2. Ischemic changes do develop with pharmacological stress. 3. Hypertension, poorly controlled. 4. Nuclear images reported separately. 5. This patient's cardiac risk based on the above: High. TD: 12/01/2019 16:23 [email or web address]
--- NOTE | 2019-12-01 16:56 | PHARMACY PROGRESS NOTE ---
- Best Possible Medication History Admit Date and Time: 11/30/19 7925 Processed by: Pharmacy Medication History completed: Yes Patient Interview: Completed (Per patient: has taken 's rx at home - hydralazine (per pt: not his outpatient prescribed med, no insurance fill record for this drug)- does not know dose) Secondary Source(s): Insurance records As the person ultimately responsible for medication therapy, providers are able to order a medication from an existing home medication list in [facility] via the "Reconcile Routine" prior to Confirmation of that medication by manufacturing support engineer. Such practice is discouraged except when the physician, in their clinical judgment, deems that a medical need exists for a medication without regard to previous use.
[2019-12-01] MEDS: LABETALOL 20 MG/4 ML SYRINGE IVP PRN (18:55)
[2019-12-02] MEDS: hydrALAZINE INJ 20 MG/ML VIAL IVP SCH ×4 (00:08→23:38)
[2019-12-02] MEDS: SODIUM CHLORIDE FLUSH 0.9% 10 ML SYRINGE IVP SCH ×4 (00:13→23:39)
[2019-12-02] MEDS: HYDROmorphone 0.5 MG/0.5 ML SYRINGE IVP PRN ×6 (01:10→20:35)
[2019-12-02] MEDS: PIPERACILLIN/TAZOBACTAM 3.375 GM in SODIUM CHLORIDE 0.9% MINIBAG 100 ML IV SCH ×3 (04:46→20:35)
[2019-12-02 05:04] LABS: BASOPHILS % (AUTO) 0.3 %; EOSINOPHILS # (AUTO) 0.4 10^3/uL (0.0-0.7); EOSINOPHILS % (AUTO) 4.3 %; LYMPHOCYTES # (AUTO) 2.1 10^3/uL (1.5-3.5); LYMPHOCYTES % (AUTO) 22.6 %; MEAN CORPUSCULAR VOLUME 91.2 fL (80.0-94.0); MEAN PLATELET VOLUME 9.1 fL (7.4-11.4); MONOCYTES # (AUTO) 0.6 10^3/uL (0.0-1.0); MONOCYTES % (AUTO) 6.9 %; NEUTROPHILS % (AUTO) 65.6 %; PLT - PLATELET COUNT 323 10^3/uL (130-450); RED BLOOD COUNT 3.87 10^6/uL (4.70-6.10); RED CELL DISTRIBUTION WIDTH 12.2 % (12.0-15.0); WHITE BLOOD COUNT 9.1 x10^3/uL (4.8-10.8)
[2019-12-02 05:15] LABS: CREATININE 0.7 mg/dL (0.6-1.2)
[2019-12-02] MEDS: SODIUM CHLORIDE FLUSH 0.9% 10 ML SYRINGE IVP PRN (06:00)
[2019-12-02] MEDS: PANTOPRAZOLE 40 MG VIAL IVP SCH (06:00)
[2019-12-02] MEDS: SODIUM CHLORIDE 0.9% 1,000 ML IV SCH ×2 (07:50→17:44)
--- NOTE | 2019-12-02 08:06 | PROVIDER PROGRESS NOTE ---
Subjective - General Admit Date: 11/30/19 - Review of Systems All Other Systems: positive: Reviewed and negative - Other Other Information/Narrative: Doing well, pain minimal because he is not eating. Undergoing cardiac workup, still quite hypertensive and stress test indicates high risk. Prior EKGs pending. Objective - Patient Data Vital Signs: Vital Signs x48h Temp Pulse Resp BP BP Pulse Ox 12/02/19 07:50 171/96 H 12/02/19 07:23 36.9 C 78 20 171/96 H 96 12/02/19 05:00 37.2 C 79 16 155/88 H 97 12/02/19 01:14 162/85 H 12/02/19 01:00 78 147/86 H 12/02/19 00:45 82 155/83 H 12/02/19 00:30 82 158/88 H 12/02/19 00:25 80 152/81 H 12/02/19 00:23 36.7 C 79 16 171/88 H 97 12/02/19 00:20 82 157/82 H 12/02/19 00:15 82 147/86 H 12/02/19 00:08 171/88 H Weight: Weight 11/30/19 12/01/19 12/02/19 23:59 23:59 23:59 Weight (kg) 95.254 kg 91.5 kg Intake & Output: Intake and Output Totals x24h 11/30/19 12/01/19 12/02/19 23:59 23:59 23:59 Intake Total 100 2815.000 1076.667 Output Total 450 2175 825 Balance -350 640.000 251.667 - Lab Results Lab Results: 12/02/19 04:52 12/02/19 04:52 Other Lab Results: Lab Results x24hrs 12/02/19 12/02/19 Range/Units 04:52 04:52 WBC 9.1 (4.8-10.8) x10^3/uL RBC 3.87 L (4.70-6.10) 10^6/uL Hgb 12.0 L (14.0-18.0) g/dL Hct 35.3 L (42.0-52.0) % MCV 91.2 (80.0-94.0) fL MCH 31.0 (27.0-31.0) pg MCHC 34.0 (32.0-36.0) g/dL RDW 12.2 (12.0-15.0) % Plt Count 323 (130-450) 10^3/uL MPV 9.1 (7.4-11.4) fL Neut # (Auto) 6.0 (1.5-6.6) 10^3/uL Lymph # (Auto) 2.1 (1.5-3.5) 10^3/uL [place] # (Auto) 0.6 (0.0-1.0) 10^3/uL Eos # (Auto) 0.4 (0.0-0.7) 10^3/uL Baso # (Auto) 0.0 (0.0-0.1) 10^3/uL Absolute Nucleated RBC 0.00 x10^3/uL Nucleated RBC % 0.0 /100WBC Sodium 137 (135-145) mmol/L Potassium 3.2 L (3.5-5.0) mmol/L Chloride 106 (101-111) mmol/L Carbon Dioxide 24 (21-32) mmol/L Anion Gap 7.0 (6-13) BUN 6 (6-20) mg/dL Creatinine 0.7 (0.6-1.2) mg/dL Estimated GFR (MDRD) 112 (>89) Glucose 114 H (70-100) mg/dL Calcium 8.0 L (8.5-10.3) mg/dL - Current Medications Current Medications: Current Medications Generic Name Dose Route Start Last Admin Trade Name Freq PRN Reason Stop Dose Admin Docusate Sodium 250 - 500 mg 12/01/19 09:00 12/01/19 08:32 Colace 250mg Capsule PO 500 mg DAILY PHILIP Administration Hydralazine HCl 10 mg 12/01/19 16:00 12/02/19 07:50 Apresoline Inj IVP 10 mg Q8H PHILIP Administration Hydromorphone HCl 0.5 mg 11/30/19 23:03 12/02/19 01:10 Dilaudid Inj Syringe IVP 0.5 mg Q2H PRN Administration Pain 8 to 10 Sodium Chloride 1,000 mls @ 100 mls/hr 11/30/19 23:45 12/02/19 07:50 Normal Saline 0.9% IV 100 mls/hr .Q10H PHILIP Administration Piperacillin Sod/Tazobactam 100 mls @ 25 mls/hr 12/01/19 05:00 12/02/19 04:46 Sod 3.375 gm/ Sodium Chloride IV 25 mls/hr Q8H PHILIP Administration Labetalol HCl 10 mg 12/01/19 02:41 12/01/19 18:55 Trandate Syringe IVP 10 mg Q4H PRN Administration PER PHYSICIAN ORDER Pantoprazole Sodium 40 mg 12/01/19 07:00 12/02/19 06:00 Protonix IVP 40 mg QDAC PHILIP Administration Sodium Chloride 10 ml 11/30/19 23:03 12/02/19 06:00 Normal Saline Flush 0.9% IVP 20 ml PRN PRN Administration NEEDED PER PROVIDER ORDERS Sodium Chloride 10 ml 12/01/19 01:00 12/02/19 00:13 Normal Saline Flush 0.9% IVP 10 ml 0100,0900,1700 PHILIP Administration - Physical Exam Comments/Other: AAO, NAD EOMI, MMM, no scleral icterus unlabored RA soft, nt/nd MAEW Impression/Plan - Problem List Problem List: Cholecystitis - plan for cholecystectomy but likely needs transfer for high cardiac risk; will FU completion of workup - holding pierre, tomorrow will be 48 hr off and clear for procedure - CLD today from surgery standpoint
[2019-12-02] MEDS: DOCUSATE SODIUM 250 MG CAPSULE PO SCH (08:28)
[2019-12-02] MEDS: LABETALOL 20 MG/4 ML SYRINGE IVP PRN ×3 (10:40→20:57)
--- NOTE | 2019-12-02 14:53 | PROVIDER PROGRESS NOTE ---
Subjective - Prog Note Date Prog Note Date: 12/02/19 Prog Note Time: 15:07 Current Medications - Current Medications Current Medications: Active Medications Docusate Sodium (Colace 250mg Capsule) 250 - 500 mg PO DAILY [facility] Last Admin: 12/02/19 08:28 Dose: Not Given Hydralazine HCl (Apresoline Inj) 10 mg IVP Q8H [facility] Last Admin: 12/02/19 15:03 Dose: 10 mg Hydromorphone HCl (Dilaudid Inj Syringe) 0.5 mg IVP Q2H PRN PRN Reason: Pain 8 to 10 Last Admin: 12/02/19 13:56 Dose: 0.5 mg Sodium Chloride (Normal Saline 0.9%) 1,000 mls @ 100 mls/hr IV .Q10H [facility] Last Admin: 12/02/19 07:50 Dose: 100 mls/hr Piperacillin Sod/Tazobactam (Sod 3.375 gm/ Sodium Chloride) 100 mls @ 25 mls/hr IV Q8H [facility] Last Admin: 12/02/19 13:37 Dose: 25 mls/hr Labetalol HCl (Trandate Syringe) 10 mg IVP Q4H PRN PRN Reason: PER PHYSICIAN ORDER Last Admin: 12/02/19 10:40 Dose: 10 mg Ondansetron HCl (Zofran Inj) 4 mg IVP Q6HR PRN PRN Reason: Nausea / Vomiting Pantoprazole Sodium (Protonix) 40 mg IVP QDAC [facility] Last Admin: 12/02/19 06:00 Dose: 40 mg Sodium Chloride (Normal Saline Flush 0.9%) 10 ml IVP PRN PRN PRN Reason: NEEDED PER PROVIDER ORDERS Last Admin: 12/02/19 06:00 Dose: 20 ml Sodium Chloride (Normal Saline Flush 0.9%) 10 ml IVP 0100,0900,1700 [facility] Last Admin: 12/02/19 08:28 Dose: Not Given Abiraterone Acetate [Zytiga] 1,000 mg PO DAILY 12/01/19 Aspirin 81 mg PO DAILY 12/01/19 Oxycodone HCl [Oxycontin] 30 mg PO DAILY PRN 12/01/19 Rivaroxaban [Xarelto] 20 mg PO DAILY 12/01/19 lisinopriL [Lisinopril] 10 mg PO DAILY 12/01/19 oxyCODONE [Roxicodone] 30 mg PO DAILY PRN 12/01/19 Objective - Vital Signs/Intake & Output Reviewed Vital Signs: Yes Vital Signs: Vital Signs x48h Temp Pulse Resp BP BP Pulse Ox 12/02/19 13:00 36.9 C 81 18 170/84 H 96 12/02/19 11:07 168/93 H 12/02/19 10:36 79 178/94 H 12/02/19 08:29 90 152/83 H 12/02/19 07:50 171/96 H 12/02/19 07:23 36.9 C 78 20 171/96 H 96 Intake & Output: Intake & Output 11/29/19 11/30/19 12/01/19 12/02/19 23:59 23:59 23:59 23:59 Intake Total 100 2815.000 1576.667 Output Total 450 2175 1525 Balance -350 640.000 51.667 - Objective General Appearance: positive: No acute distress, Alert, Other (6 foot tall, 91.5 kg, stocky middle-age man wearing glasses watching TV) Eyes Bilateral: positive: PERRL ENT: positive: Pharynx nml Neck: positive: No JVD. negative: Stiff neck Respiratory: positive: Chest non-tender. negative: Wheezes, Rales, Rhonchi Cardiovascular: positive: Regular rate & rhythm. negative: Gallop/S4, Friction rub Abdomen: positive: No organomegaly, Nml bowel sounds, No distention, Tenderness (Mild over epigastrium). negative: Guarding, Rebound Skin: positive: Warm, Dry Extremities: positive: Non-tender, No pedal edema Neurologic/Psychiatric: positive: Oriented x3, CN's nml (2-12), Motor nml - Lab Results Fish Bones: 12/02/19 04:52 12/02/19 04:52 Other Labs: Lab Results x24hrs 12/02/19 12/02/19 Range/Units 04:52 04:52 WBC 9.1 (4.8-10.8) x10^3/uL RBC 3.87 L (4.70-6.10) 10^6/uL Hgb 12.0 L (14.0-18.0) g/dL Hct 35.3 L (42.0-52.0) % MCV 91.2 (80.0-94.0) fL MCH 31.0 (27.0-31.0) pg MCHC 34.0 (32.0-36.0) g/dL RDW 12.2 (12.0-15.0) % Plt Count 323 (130-450) 10^3/uL MPV 9.1 (7.4-11.4) fL Neut # (Auto) 6.0 (1.5-6.6) 10^3/uL Lymph # (Auto) 2.1 (1.5-3.5) 10^3/uL [place] # (Auto) 0.6 (0.0-1.0) 10^3/uL Eos # (Auto) 0.4 (0.0-0.7) 10^3/uL Baso # (Auto) 0.0 (0.0-0.1) 10^3/uL Absolute Nucleated RBC 0.00 x10^3/uL Nucleated RBC % 0.0 /100WBC Sodium 137 (135-145) mmol/L Potassium 3.2 L (3.5-5.0) mmol/L Chloride 106 (101-111) mmol/L Carbon Dioxide 24 (21-32) mmol/L Anion Gap 7.0 (6-13) BUN 6 (6-20) mg/dL Creatinine 0.7 (0.6-1.2) mg/dL Estimated GFR (MDRD) 112 (>89) Glucose 114 H (70-100) mg/dL Calcium 8.0 L (8.5-10.3) mg/dL ABX Reporting Has patient been on IV antibiotics over the past 48 hours?: Yes Assessment/Plan - Problem List (1) Cholecystitis Impression: The plan is for GB surgery after the Xarelto has worn off for about 48 hours, therefore 12/03/19 would be his surgery, if he can be safely delayed. Gen surgery is following along. He is npo, getting gentle iv hydration and prn pain meds. Empiric iv antibiotics also ordered. (2) Abnormal EKG Assessment/Plan: The EKG showed inferior Q waves and posterior Q waves (early R/S transition), suggesting an old [place]. He denies any past Hx of CAD, has never had a stress test. His risk factors for coronary artery disease are: male gender, HTN, unknown cholesterol status, and family history of cerebrovascular disease. His nuclear images from the stress test were read as having inferior wall abnormality but possibly due to diaphragmatic attenuation. The infero-posterior wall is the same location where the EKG has Q waves. Echo was ordered to evaluate the LV inferior wall, which may have sluggish wall motion (by our Hospitalist reading. Dr. Sky), but there is overall normal LVEF. After calling his old PCP office, office where he had colonoscopy, and office for treatment of prostate cancer, no pregvious EKG. I spoke to cardiology telephone solicitor for [facility] cardiology today. The echo, final report, will be ready this afternoon. In discussing the case they think he is at most mild risk for perioperative complication. There should be no contraindication for him having surgery tomorrow. (3) Pre-op evaluation Assessment/Plan: As above. The patient is agreeable to have a stress test today. (4) Hypertension Qualifiers: Hypertension type: unspecified Qualified Code(s): I10 - Essential (primary) hypertension Assessment/Plan: BP is still up intermittently, even when he is not in pain. Will start iv Hydralazine for treatment. He is consistently in the 150s to 170s systolic. Hydralazine was given yeste afternoon, midnight last night, and 8:00 this morning. At home he is on lisinopril 10 mg a day. Before discharge he will need to have an increase in his medication, He already takes hydrochlorothiazide in the morning, and lisinopril twice daily. Then follow-up with his primary care provider. (5) Hypokalemia Assessment/Plan: Possibly this is from poor dietary intake for a week, due to the cholycystitis. Medication list reconciled: Zytiga, aspirin, lisinopril, Roxicodone, OxyContin, and Xarelto.Hydrochlorothiazide is not on the list although he says he takes that every morning K Replaced with iv K riders and he is still 3.2 this am. Replace again. Follow BMP daily. (6) Prostate cancer metastatic to bone Assessment/Plan: He gets Zytiga daily, on hold for now. (7) Hx of deep venous thrombosis Assessment/Plan: This was a first DVT but he has been on the Xarelto for nearly a year. 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
[2019-12-02] MEDS: POTASSIUM CHLOR 10 MEQ/100 ML 10 MEQ/100 ML BAG IV SCH ×4 (16:19→19:23)
[2019-12-03] MEDS: SODIUM CHLORIDE 0.9% 1,000 ML IV SCH ×3 (04:00→16:45)
[2019-12-03] MEDS: PIPERACILLIN/TAZOBACTAM 3.375 GM in SODIUM CHLORIDE 0.9% MINIBAG 100 ML IV SCH ×2 (04:49→12:35)
[2019-12-03 05:20] LABS: BASOPHILS % (AUTO) 0.3 %; EOSINOPHILS # (AUTO) 0.2 10^3/uL (0.0-0.7); EOSINOPHILS % (AUTO) 2.3 %; HGB - HEMOGLOBIN 11.6 g/dL (14.0-18.0); LYMPHOCYTES # (AUTO) 1.7 10^3/uL (1.5-3.5); LYMPHOCYTES % (AUTO) 16.7 %; MEAN CORPUSCULAR HEMOGLOBIN 30.9 pg (27.0-31.0); MEAN CORPUSCULAR HGB CONC 33.6 g/dL (32.0-36.0); MEAN CORPUSCULAR VOLUME 91.8 fL (80.0-94.0); MEAN PLATELET VOLUME 9.3 fL (7.4-11.4); MONOCYTES # (AUTO) 0.8 10^3/uL (0.0-1.0); MONOCYTES % (AUTO) 7.4 %; NEUTROPHILS # (AUTO) 7.4 10^3/uL (1.5-6.6); NEUTROPHILS % (AUTO) 72.9 %; PLT - PLATELET COUNT 325 10^3/uL (130-450); RED BLOOD COUNT 3.76 10^6/uL (4.70-6.10); RED CELL DISTRIBUTION WIDTH 12.4 % (12.0-15.0); WHITE BLOOD COUNT 10.2 x10^3/uL (4.8-10.8)
[2019-12-03 05:27] LABS: CREATININE 0.7 mg/dL (0.6-1.2)
[2019-12-03] MEDS: PANTOPRAZOLE 40 MG VIAL IVP SCH (06:40)
[2019-12-03] MEDS: SODIUM CHLORIDE FLUSH 0.9% 10 ML SYRINGE IVP PRN ×2 (06:40→06:53)
[2019-12-03] MEDS: HYDROmorphone 0.5 MG/0.5 ML SYRINGE IVP PRN ×5 (06:51→21:24)
[2019-12-03] MEDS: LABETALOL 20 MG/4 ML SYRINGE IVP PRN ×2 (06:51→13:22)
[2019-12-03] MEDS: hydrALAZINE INJ 20 MG/ML VIAL IVP SCH ×2 (08:40→16:51)
[2019-12-03] MEDS ORDERED: ACETAMINOPHEN 1,000 MG/100 ML 100 ML IV ONE (09:00)
[2019-12-03] MEDS: DOCUSATE SODIUM 250 MG CAPSULE PO SCH (09:21)
[2019-12-03] MEDS: SODIUM CHLORIDE FLUSH 0.9% 10 ML SYRINGE IVP SCH ×2 (09:22→16:41)
--- NOTE | 2019-12-03 09:29 | PROVIDER PROGRESS NOTE ---
Subjective - Prog Note Date Prog Note Date: 12/03/19 Prog Note Time: 11:40 - Subjective Subjective: no pain. waiting for surgery. can't wait to eat jello after. Current Medications - Current Medications Current Medications: Active Medications Docusate Sodium (Colace 250mg Capsule) 250 - 500 mg PO DAILY [facility] Last Admin: 12/03/19 09:21 Dose: Not Given Hydralazine HCl (Apresoline Inj) 10 mg IVP Q8H [facility] Last Admin: 12/03/19 08:40 Dose: 10 mg Hydromorphone HCl (Dilaudid Inj Syringe) 0.5 mg IVP Q2H PRN PRN Reason: Pain 8 to 10 Last Admin: 12/03/19 09:36 Dose: 0.5 mg Sodium Chloride (Normal Saline 0.9%) 1,000 mls @ 100 mls/hr IV .Q10H [facility] Last Admin: 12/03/19 04:00 Dose: 100 mls/hr Piperacillin Sod/Tazobactam (Sod 3.375 gm/ Sodium Chloride) 100 mls @ 25 mls/hr IV Q8H [facility] Last Infusion: 12/03/19 09:29 Dose: Infused Potassium Chloride (Potassium Chloride) 10 meq in 100 mls @ 100 mls/hr IV Q1H [facility] Stop: 12/03/19 15:59 Labetalol HCl (Trandate Syringe) 10 mg IVP Q4H PRN PRN Reason: PER PHYSICIAN ORDER Last Admin: 12/03/19 06:51 Dose: 10 mg Ondansetron HCl (Zofran Inj) 4 mg IVP Q6HR PRN PRN Reason: Nausea / Vomiting Last Admin: 12/02/19 15:48 Dose: 4 mg Pantoprazole Sodium (Protonix) 40 mg IVP QDAC [facility] Last Admin: 12/03/19 06:40 Dose: 40 mg Sodium Chloride (Normal Saline Flush 0.9%) 10 ml IVP PRN PRN PRN Reason: NEEDED PER PROVIDER ORDERS Last Admin: 12/03/19 06:53 Dose: 10 ml Sodium Chloride (Normal Saline Flush 0.9%) 10 ml IVP 0100,0900,1700 [facility] Last Admin: 12/03/19 09:22 Dose: Not Given Abiraterone Acetate [Zytiga] 1,000 mg PO DAILY 12/01/19 Aspirin 81 mg PO DAILY 12/01/19 Oxycodone HCl [Oxycontin] 30 mg PO DAILY PRN 12/01/19 Rivaroxaban [Xarelto] 20 mg PO DAILY 12/01/19 lisinopriL [Lisinopril] 10 mg PO DAILY 12/01/19 oxyCODONE [Roxicodone] 30 mg PO DAILY PRN 12/01/19 Objective - Vital Signs/Intake & Output Reviewed Vital Signs: Yes Vital Signs: Vital Signs x48h Temp Pulse Resp BP BP Pulse Ox 12/03/19 09:16 144/83 H 12/03/19 08:55 144/82 H 12/03/19 08:50 153/83 H 12/03/19 08:45 157/82 H 12/03/19 08:40 165/85 H 12/03/19 07:46 37.0 C 88 16 151/85 H 97 12/03/19 06:45 36.9 C 93 16 161/83 H 95 12/03/19 04:00 36.8 C 90 16 148/82 H 98 Intake & Output: Intake & Output 11/30/19 12/01/19 12/02/19 12/03/19 23:59 23:59 23:59 23:59 Intake Total 100 2815.000 3058.334 1100 Output Total 450 2175 2200 1150 Balance -350 640.000 858.334 -50 - Objective General Appearance: positive: No acute distress, Alert Eyes Bilateral: positive: PERRL ENT: positive: Pharynx nml Neck: positive: No JVD. negative: Carotid bruit Respiratory: positive: Chest non-tender. negative: Wheezes, Rales, Rhonchi Cardiovascular: positive: Irregularly irregular. negative: Gallop/S4 Abdomen: positive: Non-tender, No organomegaly, Nml bowel sounds, No distention Skin: positive: Warm, Dry Extremities: positive: Full ROM, No pedal edema Neurologic/Psychiatric: positive: Oriented x3, CN's nml (2-12), Motor nml - Lab Results Fish Bones: 12/03/19 04:30 12/03/19 04:30 Other Labs: Lab Results x24hrs 12/03/19 12/03/19 Range/Units 04:30 04:30 WBC 10.2 (4.8-10.8) x10^3/uL RBC 3.76 L (4.70-6.10) 10^6/uL Hgb 11.6 L (14.0-18.0) g/dL Hct 34.5 L (42.0-52.0) % MCV 91.8 (80.0-94.0) fL MCH 30.9 (27.0-31.0) pg MCHC 33.6 (32.0-36.0) g/dL RDW 12.4 (12.0-15.0) % Plt Count 325 (130-450) 10^3/uL MPV 9.3 (7.4-11.4) fL Neut # (Auto) 7.4 H (1.5-6.6) 10^3/uL Lymph # (Auto) 1.7 (1.5-3.5) 10^3/uL [place] # (Auto) 0.8 (0.0-1.0) 10^3/uL Eos # (Auto) 0.2 (0.0-0.7) 10^3/uL Baso # (Auto) 0.0 (0.0-0.1) 10^3/uL Absolute Nucleated RBC 0.00 x10^3/uL Nucleated RBC % 0.0 /100WBC Sodium 138 (135-145) mmol/L Potassium 3.2 L (3.5-5.0) mmol/L Chloride 108 (101-111) mmol/L Carbon Dioxide 24 (21-32) mmol/L Anion Gap 6.0 (6-13) BUN 6 (6-20) mg/dL Creatinine 0.7 (0.6-1.2) mg/dL Estimated GFR (MDRD) 112 (>89) Glucose 113 H (70-100) mg/dL Calcium 8.0 L (8.5-10.3) mg/dL ABX Reporting Has patient been on IV antibiotics over the past 48 hours?: Yes Assessment/Plan - Problem List (1) Cholecystitis Impression: The plan is for GB surgery after the Xarelto has worn off for about 48 hours, therefore today, 12/03/19, would be his surgery Gen surgery is following along. He is npo, getting gentle iv hydration and prn pain meds. Empiric iv antibiotics also ordered. (2) Abnormal EKG Assessment/Plan: The EKG showed inferior Q waves and posterior Q waves (early R/S transition), suggesting an old [place]. He denies any past Hx of CAD, has never had a stress test. His risk factors for coronary artery disease are: male gender, HTN, unknown cholesterol status, and family history of cerebrovascular disease. His nuclear images from the stress test were read as having inferior wall abnormality but possibly due to diaphragmatic attenuation. The infero-posterior wall is the same location where the EKG has Q waves. Echo was ordered to evaluate the LV inferior wall, which may have sluggish wall motion (by our Hospitalist reading. Dr. Sky), but there is overall normal LVEF. After calling his old PCP office, office where he had colonoscopy, and office fo r treatment of prostate cancer, no pregvious EKG. I spoke to cardiology manager decision support for [facility] cardiology 12/02/19. In discussing the echo, ekg, and stress test they think he is at most mild risk for perioperative complication. There should be no contraindication for him having surgery today (3) Pre-op evaluation Assessment/Plan: As above. (4) Hypertension Qualifiers: Hypertension type: unspecified Qualified Code(s): I10 - Essential (primary) hypertension Assessment/Plan: BP is still up intermittently, even when he is not in pain. Will start iv Hydralazine for treatment. He is consistently in the 150s to 170s systolic. With the hydralazine he has come down to the 140s to the 160 systolic. At home he is on twice daily lisinopril with hydrochlorothiazide in the morning. After surgery we will resume that dosage. (5) Hypokalemia Assessment/Plan: Possibly this is from poor dietary intake for a week, due to the cholycystitis. Medication list reconciled: Zytiga, aspirin, lisinopril, Roxicodone, OxyContin, and Xarelto.Hydrochlorothiazide is not on the list although he says he takes that every morning K Replaced with iv K riders and he is still 3.3 this am. Replace again. Follow BMP daily. (6) Prostate cancer metastatic to bone Assessment/Plan: He gets Zytiga daily, on hold for now. (7) Hx of deep venous thrombosis Assessment/Plan: This was a first DVT but he has been on the Xarelto for nearly a year. Presumably this is because he is hypercoagulable from having a history of malignancy.
[2019-12-03] MEDS: POTASSIUM CHLOR 10 MEQ/100 ML 10 MEQ/100 ML BAG IV SCH ×4 (11:49→17:28)
--- NOTE | 2019-12-03 13:23 | ANESTHESIA ---
Pre-Anesthesia VS, & Labs - Diagnosis Diagnosis Cholecystitis Hypertensive Urgency Coagulopathy - Procedure Lap. Darling Vital Signs: Temp Pulse Resp BP Pulse Ox 36.8 C 81 18 153/77 H 98 12/03/19 11:55 12/03/19 11:55 12/03/19 11:55 12/03/19 11:55 12/03/19 11:55 Height 6 ft Weight (kg) 91.5 kg Body Mass Index 27.3 - NPO >8 hours - Lab Results Current Lab Results: Laboratory Tests 12/03/19 04:30: Sodium 138, Potassium 3.2 L, Chloride 108, Carbon Dioxide 24, Anion Gap 6.0, BUN 6, Creatinine 0.7, Estimated GFR (MDRD) 112, Glucose 113 H, Calcium 8.0 L 12/03/19 04:30: WBC 10.2, RBC 3.76 L, Hgb 11.6 L, Hct 34.5 L, MCV 91.8, MCH 30.9, MCHC 33.6, RDW 12.4, Plt Count 325, MPV 9.3, Neut # (Auto) 7.4 H, Lymph # (Auto) 1.7, [place] # (Auto) 0.8, Eos # (Auto) 0.2, Baso # (Auto) 0.0, Absolute Nucleated RBC 0.00, Nucleated RBC % 0.0 12/02/19 04:52: Sodium 137, Potassium 3.2 L, Chloride 106, Carbon Dioxide 24, Anion Gap 7.0, BUN 6, Creatinine 0.7, Estimated GFR (MDRD) 112, Glucose 114 H, Calcium 8.0 L 12/02/19 04:52: WBC 9.1, RBC 3.87 L, Hgb 12.0 L, Hct 35.3 L, MCV 91.2, MCH 31.0, MCHC 34.0, RDW 12.2, Plt Count 323, MPV 9.1, Neut # (Auto) 6.0, Lymph # (Auto) 2.1, [place] # (Auto) 0.6, Eos # (Auto) 0.4, Baso # (Auto) 0.0, Absolute Nucleated RBC 0.00, Nucleated RBC % 0.0 12/01/19 04:59: Sodium 140, Potassium 3.2 L, Chloride 104, Carbon Dioxide 28, Anion Gap 8.0, BUN 13, Creatinine 0.8, Estimated GFR (MDRD) 96, Glucose 111 H, Calcium 8.1 L 12/01/19 04:59: WBC 7.2, RBC 3.65 L, Hgb 11.4 L, Hct 32.9 L, MCV 90.1, MCH 31.2 H, MCHC 34.7, RDW 11.9 L, Plt Count 284, MPV 9.2, Neut # (Auto) 4.5, Lymph # (Auto) 1.9, [place] # (Auto) 0.6, Eos # (Auto) 0.2, Baso # (Auto) 0.0, Absolute Nucleated RBC 0.00, Nucleated RBC % 0.0 11/30/19 20:04: Troponin I High Sens 4.5 11/30/19 20:04: Sodium 139, Potassium 3.3 L, Chloride 101, Carbon Dioxide 27, Anion Gap 11.0, BUN 15, Creatinine 0.9, Estimated GFR (MDRD) 84 L, Glucose 148 H , Calcium 9.0, Total Bilirubin 0.9, AST 13, ALT 10, Alkaline Phosphatase 64, Total Protein 7.3, Albumin 4.0, Globulin 3.3, Albumin/Globulin Ratio 1.2, Lipase 35 11/30/19 20:04: WBC 7.8, RBC 4.05 L, Hgb 12.7 L, Hct 37.1 L, MCV 91.6, MCH 31.4 H, MCHC 34.2, RDW 12.1, Plt Count 343, MPV 9.3, Neut # (Auto) 4.9, Lymph # (Auto) 2.2, [place] # (Auto) 0.5, Eos # (Auto) 0.2, Baso # (Auto) 0.0, Absolute Nucleated RBC 0.00, Nucleated RBC % 0.0 Fish Bones: 12/03/19 04:30 12/03/19 04:30 Home Medications and Allergies Home Medications: Ambulatory Orders Abiraterone Acetate [Zytiga] 1,000 mg PO DAILY 12/01/19 Aspirin 81 mg PO DAILY 12/01/19 Oxycodone HCl [Oxycontin] 30 mg PO DAILY PRN 12/01/19 Rivaroxaban [Xarelto] 20 mg PO DAILY 12/01/19 lisinopriL [Lisinopril] 10 mg PO DAILY 12/01/19 oxyCODONE [Roxicodone] 30 mg PO DAILY PRN 12/01/19 Active Medications Docusate Sodium (Colace 250mg Capsule) 250 - 500 mg PO DAILY [facility] Last Admin: 12/03/19 09:21 Dose: Not Given Hydralazine HCl (Apresoline Inj) 10 mg IVP Q8H [facility] Last Admin: 12/03/19 08:40 Dose: 10 mg Hydromorphone HCl (Dilaudid Inj Syringe) 0.5 mg IVP Q2H PRN PRN Reason: Pain 8 to 10 Last Admin: 12/03/19 09:36 Dose: 0.5 mg Sodium Chloride (Normal Saline 0.9%) 1,000 mls @ 100 mls/hr IV .Q10H [facility] Last Admin: 12/03/19 04:00 Dose: 100 mls/hr Piperacillin Sod/Tazobactam (Sod 3.375 gm/ Sodium Chloride) 100 mls @ 25 mls/hr IV Q8H [facility] Last Admin: 12/03/19 12:35 Dose: 25 mls/hr Potassium Chloride (Potassium Chloride) 10 meq in 100 mls @ 100 mls/hr IV Q1H [facility] Stop: 12/03/19 15:59 Last Admin: 12/03/19 12:54 Dose: 100 mls/hr Labetalol HCl (Trandate Syringe) 10 mg IVP Q4H PRN PRN Reason: PER PHYSICIAN ORDER Last Admin: 12/03/19 06:51 Dose: 10 mg Ondansetron HCl (Zofran Inj) 4 mg IVP Q6HR PRN PRN Reason: Nausea / Vomiting Last Admin: 12/02/19 15:48 Dose: 4 mg Pantoprazole Sodium (Protonix) 40 mg IVP QDAC [facility] Last Admin: 12/03/19 06:40 Dose: 40 mg Sodium Chloride (Normal Saline Flush 0.9%) 10 ml IVP PRN PRN PRN Reason: NEEDED PER PROVIDER ORDERS Last Admin: 12/03/19 06:53 Dose: 10 ml Sodium Chloride (Normal Saline Flush 0.9%) 10 ml IVP 0100,0900,1700 [facility] Last Admin: 12/03/19 09:22 Dose: Not Given Abiraterone Acetate [Zytiga] 1,000 mg PO DAILY 12/01/19 Aspirin 81 mg PO DAILY 12/01/19 Oxycodone HCl [Oxycontin] 30 mg PO DAILY PRN 12/01/19 Rivaroxaban [Xarelto] 20 mg PO DAILY 12/01/19 lisinopriL [Lisinopril] 10 mg PO DAILY 12/01/19 oxyCODONE [Roxicodone] 30 mg PO DAILY PRN 12/01/19 Allergies/Adverse Reactions: Allergies Allergy/AdvReac Type Severity Reaction Status Date / Time No Known Drug Allergies Allergy Verified 11/30/19 19:50 Anes History & Medical History - Medical History Cardiovascular: reports: Hypertension, Deep vein thrombosis (off blood thinner) Pulmonary: reports: None Gastrointestinal: reports: None Urinary: reports: Other (prostate cancer) Neuro: reports: None Musculoskeletal: reports: Other (bone mets) Endocrine/Autoimmune: reports: None Skin: reports: None Smoking Status: Never smoker Psychosocial: reports: No issues indicated Other Past Medical History: prostate cancer with mets to bone - Surgical History General: Colonoscopy Eyes Ears Nose Throat (EENT): Tonsil/Adenoidectomy Orthopedic: Other (left ankle surgery with screws) Results - EKG Results EKG Comparison: Reviewed EKG - Echo Results Echo Results: Report reviewed - Other Diagnostic Imaging Results Diagnostic Imaging Results: Report reviewed Exam General: Alert, Oriented x3, Cooperative, No acute distress Dental: WNL Mouth Openin Fingerbreadth Neck Mobility: Normal Mallampati classification: III Thyromental Distance: 4-6 cm Respiratory: Lungs clear, Normal breath sounds, No respiratory distress, No accessory muscle use Cardiovascular: Regular rate, Normal S1, Normal S2, No murmurs Mental/Cognitive Status: Alert/Oriented X3, Normal for patient Plan Anesthesia Type: General Consent for Procedure(s) Verified and Reviewed: Yes Code Status: Attempt Resuscitation ASA classification: 3-Severe systemic disease Is this case an emergency?: No
--- NOTE | 2019-12-03 13:39 | PROVIDER PROGRESS NOTE ---
Subjective - General Admit Date: 11/30/19 - Other Other Information/Narrative: Doing well, eager for surgery so he can go home. Objective - Patient Data Vital Signs: Vital Signs x48h Temp Pulse Resp BP BP Pulse Ox 12/03/19 13:28 77 137/83 H 12/03/19 13:10 96 18 168/91 H 99 12/03/19 11:55 36.8 C 81 18 153/77 H 98 12/03/19 09:16 144/83 H 12/03/19 08:55 144/82 H 12/03/19 08:50 153/83 H 12/03/19 08:45 157/82 H 12/03/19 08:40 165/85 H 12/03/19 07:46 37.0 C 88 16 151/85 H 97 12/03/19 06:45 36.9 C 93 16 161/83 H 95 Weight: Weight 12/01/19 12/02/19 12/03/19 23:59 23:59 23:59 Weight (kg) 91.5 kg Intake & Output: Intake and Output Totals x24h 12/01/19 12/02/19 12/03/19 23:59 23:59 23:59 Intake Total 2815.000 3058.334 2343.34 Output Total 2175 2200 1450 Balance 640.000 858.334 893.34 - Lab Results Lab Results: 12/03/19 04:30 12/03/19 04:30 Other Lab Results: Lab Results x24hrs 12/03/19 12/03/19 Range/Units 04:30 04:30 WBC 10.2 (4.8-10.8) x10^3/uL RBC 3.76 L (4.70-6.10) 10^6/uL Hgb 11.6 L (14.0-18.0) g/dL Hct 34.5 L (42.0-52.0) % MCV 91.8 (80.0-94.0) fL MCH 30.9 (27.0-31.0) pg MCHC 33.6 (32.0-36.0) g/dL RDW 12.4 (12.0-15.0) % Plt Count 325 (130-450) 10^3/uL MPV 9.3 (7.4-11.4) fL Neut # (Auto) 7.4 H (1.5-6.6) 10^3/uL Lymph # (Auto) 1.7 (1.5-3.5) 10^3/uL [place] # (Auto) 0.8 (0.0-1.0) 10^3/uL Eos # (Auto) 0.2 (0.0-0.7) 10^3/uL Baso # (Auto) 0.0 (0.0-0.1) 10^3/uL Absolute Nucleated RBC 0.00 x10^3/uL Nucleated RBC % 0.0 /100WBC Sodium 138 (135-145) mmol/L Potassium 3.2 L (3.5-5.0) mmol/L Chloride 108 (101-111) mmol/L Carbon Dioxide 24 (21-32) mmol/L Anion Gap 6.0 (6-13) BUN 6 (6-20) mg/dL Creatinine 0.7 (0.6-1.2) mg/dL Estimated GFR (MDRD) 112 (>89) Glucose 113 H (70-100) mg/dL Calcium 8.0 L (8.5-10.3) mg/dL - Current Medications Current Medications: Current Medications Generic Name Dose Route Start Last Admin Trade Name Freq PRN Reason Stop Dose Admin Docusate Sodium 250 - 500 mg 12/01/19 09:00 12/03/19 09:21 Colace 250mg Capsule PO Not Given DAILY [facility] Hydralazine HCl 10 mg 12/01/19 16:00 12/03/19 08:40 Apresoline Inj IVP 10 mg Q8H [facility] Administration Hydromorphone HCl 0.5 mg 11/30/19 23:03 12/03/19 09:36 Dilaudid Inj Syringe IVP 0.5 mg Q2H PRN Administration Pain 8 to 10 Sodium Chloride 1,000 mls @ 100 mls/hr 11/30/19 23:45 12/03/19 13:26 Normal Saline 0.9% IV 100 mls/hr .Q10H [facility] Administration Piperacillin Sod/Tazobactam 100 mls @ 25 mls/hr 12/01/19 05:00 12/03/19 12:35 Sod 3.375 gm/ Sodium Chloride IV 25 mls/hr Q8H PHILIP Administration Potassium Chloride 10 meq in 100 mls @ 100 mls/hr 12/03/19 12:00 12/03/19 12:54 Potassium Chloride IV 12/03/19 15:59 100 mls/hr Q1H PHILIP Administration Labetalol HCl 10 mg 12/01/19 02:41 12/03/19 13:22 Trandate Syringe IVP 10 mg Q4H PRN Administration PER PHYSICIAN ORDER Ondansetron HCl 4 mg 11/30/19 23:03 12/02/19 15:48 Zofran Inj IVP 4 mg Q6HR PRN Administration Nausea / Vomiting Pantoprazole Sodium 40 mg 12/01/19 07:00 12/03/19 06:40 Protonix IVP 40 mg QDAC PHILIP Administration Sodium Chloride 10 ml 11/30/19 23:03 12/03/19 06:53 Normal Saline Flush 0.9% IVP 10 ml PRN PRN Administration NEEDED PER PROVIDER ORDERS Sodium Chloride 10 ml 12/01/19 01:00 12/03/19 09:22 Normal Saline Flush 0.9% IVP Not Given 0100,0900,1700 PHILIP - Physical Exam Comments/Other: AAO, NAD EOMI, MMM, no scleral icterus unlabored RA soft, nt/nd MAEW Impression/Plan - Problem List Problem List: Cholecystitis - plan for cholecystectomy today --> cleared by cardiology for mild risk --> all risks, benefits, and alternatives discussed and pt wishes to proceed - holding xarelto, off now for 48 hr so clear for procedure - hopefully home tomorrow
[2019-12-03] MEDS ORDERED: BUPIVACAINE 0.5% PF 30 ML VIAL ONE (14:18)
[2019-12-03] MEDS ORDERED: LIDOCAINE 1%-EPI 1:100000 20 ML MDV ONE (14:18)
[2019-12-03] MEDS ORDERED: GLYCOPYRROLATE 1 MG/5 ML VIAL IVP ONE (14:31)
[2019-12-03] MEDS ORDERED: PHENYLEPHRINE 10 MG/ML VIAL IV ONE (14:31)
[2019-12-03] MEDS ORDERED: DEXAMETHASONE 4 MG/ML VIAL IVP ONE (14:31)
[2019-12-03] MEDS ORDERED: MIDAZOLAM 2 MG/2 ML VIAL IVP ONE (14:31)
[2019-12-03] MEDS ORDERED: ROCURONIUM 50 MG/5 ML VIAL IVP ONE (14:31)
[2019-12-03] MEDS ORDERED: fentaNYL 250 MCG/5 ML VIAL IVP ONE (14:31)
[2019-12-03] MEDS ORDERED: NEOSTIGMINE 1 MG/1 ML 10 ML MDV IVP ONE (14:31)
[2019-12-03] MEDS ORDERED: ONDANSETRON 4 MG/2 ML VIAL IVP ONE (14:31)
[2019-12-03] MEDS ORDERED: PROPOFOL 200 MG/20 ML VIAL IVP ONE (14:31)
[2019-12-03] MEDS ORDERED: LIDOCAINE 1%-EPI 1:100000 20 ML MDV SUBQ ONE ×2 (15:08)
[2019-12-03] MEDS ORDERED: BUPIVACAINE 0.5% PF 30 ML VIAL SUBQ ONE ×2 (15:08)
[2019-12-03] MEDS ORDERED: LACTATED RINGERS 1,000 ML IV ONE (15:37)
[2019-12-03] MEDS ORDERED: fentaNYL 100 MCG/2 ML VIAL IVP ONE ×2 (16:00→16:08)
[2019-12-03] MEDS ORDERED: fentaNYL 100 MCG/2 ML VIAL ONE (16:05)
--- NOTE | 2019-12-03 16:27 | OPERATIVE REPORT ---
Operative Report - General Admit Date: 11/30/19 Procedure Date: 12/03/19 Pre-Op Diagnosis: Cholecystitis Procedure Performed: Laparoscopic Cholecystectomy Post Op Diagnosis: same - Procedure Note Primary Surgeon: Florence Rodriguez MD Anesthesia Provider: Elinor Barry CRNA Anesthesia Technique: General ET tube Pathology: gallbladder Estimated Blood Loss (mL): 50 Indications: 68yo M with RUQ pain for several days prior to admission. Found to have cholec ystitis. Also extremely hypertensive so underwent cardiac workup and was cleared. His anticoagulant for DVT history was also held. All risks, benefits, and alternatives discussed and pt wishes to proceed. Findings: highly inflamed gallbladder with thick rind Complications: none - Other Other Information/Narrative: The patient was taken to the operating room and placed on operating table in supine position. The abdomen was prepped and draped in sterile fashion and a time out is performed with the team present. Local anesthesia was used to infiltrate each site prior to incision. Using a 15-blade scalpel, a small 5 mm incision was made just to the right of the umbilicus. Using a 5 mm Optiview camera port, the laparoscope was inserted into the abdomen. Once confirmed to be within the peritoneal cavity, the abdomen was insufflated with air. Initial diagnostic laparoscopy showed no injury from initial trocar placement. Three secondary trocars were then placed in the following locations: a 5mm trocar was then placed in the right lateral subcostal margin, a 5mm trocar in the right midclavicular line, and a 12 mm trocar was placed in the midline in the midepigastric area. A blunt grasper was then used to retract the fundus of the gallbladder up over the dome of the liver. A second blunt grasper was used to retract the infundibulum caudally. The gallbladder was highly inflamed with a thick rind and bled readily. Using blunt dissection and electrocautery, the cystic duct and cystic artery were identified. While clearing the artery, a branch was torn and the artery high on the gallbladder was clipped to control bleeding. The cystic duct was then exposed from highly inflamed surrounding soft tissue including the more proximal cystic artery and lymph node. The critical view was seen. Once adequate length was obtained, the cystic duct was triply clipped proximally and singly clipped distally. The cystic duct was then transected using scissors. The clips were noted to completely traverse their respective structures with no evidence of bile leakage or bleeding. The remaining peritoneal attachments of the gallbladder and the liver bed were taken down using electrocautery. Once free, the gallbladder was placed into an EndoCatch retrieval bag and removed through the 12 mm port. The gallbladder was then passed off as a specimen. Hemostasis was obtained. The field was irrigated to clear all blood and bile and then was suctioned free of any free fluid. The 12mm port site fascia was re-approximated using an EndoClose device and an 0-vicryl suture. The remainder of the local anesthesia was used to provide local analgesia over each of the port sites. The secondary trocars were removed under direct vision noting no bleeding. The abdomen was allowed to desufflate fully. The final trocar was removed. The skin incisions were then reapproximated using 4-0 Monocryl in an interrupted subcuticular fashion. The abdomen was cleaned and dried and Dermabond was placed over each of the incisions. The patient was awakened and taken to the postanesthesia care unit in stable condition. All counts were correct at the end of the procedure.
[2019-12-03] MEDS: oxyCODONE 5 MG TABLET PO PRN ×2 (17:27→23:42)
[2019-12-04] MEDS: hydrALAZINE INJ 20 MG/ML VIAL IVP SCH ×2 (00:38→08:58)
[2019-12-04] MEDS: SODIUM CHLORIDE FLUSH 0.9% 10 ML SYRINGE IVP SCH (00:44)
[2019-12-04] MEDS: SODIUM CHLORIDE 0.9% 1,000 ML IV SCH (02:53)
[2019-12-04] MEDS: PANTOPRAZOLE 40 MG VIAL IVP SCH (06:33)
--- NOTE | 2019-12-04 08:22 | DISCHARGE SUMMARY ---
"Discharge Summary Admit Date: 11/30/19 Discharge Date: 12/04/19 Discharging Provider: Bia New MD Code Status: Do Not Attempt Resuscitation Condition at Discharge: Good Discharge Disposition: 01 Home, Self Care - DIAGNOSES Discharge Diagnoses with Status of Each Condition: 1. Acute cholecystitis 2. Hypertension, Uncontrolled, Essential 3. Prostate cancer metastatic to bone 4. Abnormal EKG 5. Hypokalemia 6. Long-term use of anticoagulation 7. Personal history of DVT of arm - HPI History of Present Illness: 68 y/o male with prostate cancer metastatic to bone. He is on chemotherapy and had radiation as recently as 1 week ago. His oncologist is Dr Valencia with [facility]. He presented to the ED with complain of right upper quadrant abdominal pain and pain in his upper sternum. His symptoms started 5 days ago, and seemed to be worse a few hours after most meals. He reports pain with deep inspiration, nausea and vomiting with these episodes. After 5 days of these symptoms it became unbearable so he sought medical attention. He reported associated elevation in his blood pressure with these episodes with reading as high as an SBP of 195 at home. In the ED work up included a CT and US of abd/pelvis which suggested cholecystitis. He has history of a right upper extremity DVT for which he was put on xarelto. It was a first and only occurrence of a blood clot but he has been on xarelto for about 1 year now. he last took it at 7pm on 11/30/2019. He was presented for admission by the hospitalist service in light of his co-morbidities. Currently he denies any pain, however he had just been give some pain medication. Past Medical History Cardiovascular: reports: Hypertension, Deep vein thrombosis Respiratory: reports: None Neuro: reports: None Endocrine/Autoimmune: reports: None GI: reports: None : reports: Other (prostate cancer) HEENT: reports: None Psych: reports: None Musculoskeletal: reports: Other (bone mets) Derm: reports: None Other Past Medical History: prostate cancer with mets to bone - CONSULTS | PROCEDURES Consultations: General surgery, Dr. Rodriguez Procedures: 1. Abdomen pelvis CT. Incompletely seen lung bases demonstrating scattered atelectasis. Heart size within normal limits. 7 mm low attenuating liver lesion. Gallbladder demonstrating mild wall thickening and pericholecystic inflammatory changes. Small cystic change in the gallbladder fundus could reflect adenomyomatosis. Innumerable sclerotic metastatic lesions throughout the visualized osseous structures. 2. Abdomen ultrasound with findings suspicious for cholecystitis, wall thickening, sludge and positive sonographic Capellan sign. 1 cm gallbladder polyp. 3. Chest x-ray within normal single view. 4. Myocardial perfusion scan with nuclear medicine imaging after a stress test. Stress test was negative for ischemia. EKG had inferior wall Q waves that was nondiagnostic. Nuclear medicine imaging had a left ventricle chamber size that was normal at rest and with stress. No convincing fixed perfusion defects. Probable moderate inferior wall diaphragmatic attenuation. Ejection fraction 59%. 5. Echocardiogram with left ventricular systolic function normal. Ejection fraction 65 to 70%. Normal diastolic G. No regional wall motion abnormalities. Paradoxical septal motion consistent with left bundle branch block. Atria size is normal, no significant valvular heart disease. 6. Laparoscopic cholecystectomy on December 02 - HOSPITAL COURSE Hospital Course: The patient was admitted as acute cholecystitis. However he was on Xarelto for his history of DVT of the arm. As such he was stopped with his Xarelto and received Lovenox for prophylaxis. We had to wait 2 days before he could go to the operating room. In the meantime he had an abnormal EKG indicating a possible old inferior wall OH. He has cardiac risk factors, but no history of chest pain, angina, A. fib, or valvular heart disease. A stress test was done showing hyperattenuation of the inferior wall. Echocardiogram was done showing no wall motion abnormalities. I presented the case to [facility] on- call and they felt the patient was at low risk after reviewing this data. He was noted to be very hypertensive on admitting exam. He said that somehow his blood pressure been running high at home in spite of being on lisinopril. He has started taking lisinopril in the morning and at night to control his blood pressure. During his stay he was n.p.o. and placed on IV hydralazine. At discharge his lisinopril was increased from 10 mg to 20 mg a day and hydrochlorothiazide was added. I have also given him a prescription for Norvasc 5 mg a day. He is to take his blood pressure daily on the lisinopril 20 with hydrochlorothiazide. If he is consistently above 140/90 to take the Norvasc. As such, the patient went to the operating room and had a successful laparoscopic cholecystectomy. The next morning he was tolerating a regular diet. Ambulating in his room. Was not having significant pain. Discharge exam showed him to have a temperature of 36.8. Pulse 98. Blood pressure 164/102. He is 5 feet 9 inches tall and weighs 74 kg. Exceedingly pleasant white male, bearded, m male pattern baldness. We saying happy birthday to him. Today is his birthday. Neck is supple without adenopathy. Lungs are clear. He has a regular rate and rhythm. The abdomen is a little tender over the trocar insertion sites but there is a closed with superglue. No redness pinkness tenderness or drainage. Normal bowel sounds. Slightly distended and tympanitic. This would be expected after laparoscopic surgery. Extremities without edema and he is ambulating in the room without any difficulty. Greater than 30 minutes was spent coordinating discharge. I called in prescriptions for lisinopril and Norvasc to [facility] in [place]. I was attempting to E scribed him but our [id number] system would not recognize [id number] and [place] and that is why I call them in. Instructions were given to the patient with regards to his follow-up, weight restrictions, activity, etc. via his discharge instructions. He is to see Dr. Rodriguez in the next week. - ALLERGIES Allergies/Adverse Reactions: Allergies Allergy/AdvReac Type Severity Reaction Status Date / Time No Known Drug Allergies Allergy Verified 11/30/19 19:50 - MEDICATIONS Home Medications: Ambulatory Orders Medication Instructions Recorded Confirmed Abiraterone Acetate [Zytiga] 1,000 mg PO DAILY 12/01/19 12/01/19 Aspirin 81 mg PO DAILY 12/01/19 12/01/19 Oxycodone HCl [Oxycontin] 30 mg PO DAILY PRN 12/01/19 12/01/19 Rivaroxaban [Xarelto] 20 mg PO DAILY 12/01/19 12/01/19 oxyCODONE [Roxicodone] 30 mg PO DAILY PRN 12/01/19 12/01/19 Lisinopril/Hydrochlorothiazide 1 each PO DAILY #30 tablet 12/04/19 [Lisinopril-Hctz 20-12.5 mg Tab] amLODIPine [Norvasc] 5 mg PO DAILY #30 tablet 12/04/19 - LABS Result Diagrams: 12/03/19 04:30 12/03/19 04:30"
--- NOTE | 2019-12-04 08:43 | Discharge Plan ---
Discharge Plan Problem Reviewed?: Yes Disposition: Home, Self Care Condition: Stable Prescriptions: amLODIPine [Norvasc] 5 mg PO DAILY #30 tablet Lisinopril/Hydrochlorothiazide [Lisinopril-Hctz 20-12.5 mg Tab] 1 each PO DAILY #30 tablet Diet: Regular Activity Restrictions: Activity as Tolerated Shower Restrictions: No Driving Restrictions: No Health Concerns: Today's your birthday. Happy birthday. You presented to our emergency room on November 29 with 5 days of upper abdominal pain. You also had an elevated blood pressure. Work-up in our emergency room included a CAT scan of your abdomen and an ultrasound of your abdomen and pelvis and it showed that you had an infected, inflamed gallbladder from gallstones. Because you take Xarelto for a blood clot of your right arm, you were not able to go to surgery immediately. We had to wait a few days for the Xarelto to be out of your bloodstream before we can take you to the operating room. During your state your blood pressure continued to be elevated and you needed medications such as IV hydralazine to control it. Plan of Treatment: 1. You had a successful removal of your gallbladder on December 02 2. Blood pressure was controlled with the intravenous hydralazine but you cannot take that at home. As such we are increasing your lisinopril from 10 mg a day to 20 mg a day with Hydrocort thiazide. Take that once a day. That has been called into [facility] in [place]. We have given you 1 refill. 3. In case her blood pressure does not stay below 140/90, we have also called in a second medication called Norvasc. That is once a day. Only take it if after 3 days your blood pressure stays above 140/90. 4. Please see your primary care provider in follow-up in the next 1 to 2 weeks to check your blood pressure 5. Dr. Rodriguez, the surgeon, would like to see you in 1-1/2 weeks. Her office is down the street from the hospital on [facility]. Please call [phone] to make an appointment. 6. No lifting of objects greater than 10 pounds 7. Keep your abdominal wound sites clean and dry. You can take a shower just not soak in a tub for right now. That should only be for the next 5 days. 8. If you develop any fever, chills, redness and drainage at your abdominal wound sites, please call Dr. Rodriguez's office. 9. We usually send patients home with pain medicine. However you say you have some from your other doctors office for your prostate cancer bone pain. You asked us not to call in new medication. Care Goals: To slowly increase your strength and go to a regular diet in the next week or so. Sometimes heavy gallbladder out leaves you with loose bowel movements with eating. For the first year or so make sure you know where bathrooms are when you start to eat in case you have to go to the bathroom suddenly. If your diarrhea gets severe, your doctor can call in a medication called Jil to help with that. Assessment: Patient understands care goals, and promises to follow through with plan. No Smoking: If you smoke, Please STOP! Call for help. Follow-up with: Debra Rodriguez MD [Provider Admit Priv/Credential] -
[2019-12-04 08:58] VITALS: BP 164/102
[2019-12-04] MEDS: HYDROmorphone 0.5 MG/0.5 ML SYRINGE IVP PRN (08:59)
[2019-12-04] MEDS: DOCUSATE SODIUM 250 MG CAPSULE PO SCH (09:01)
== END 2019-12-04 09:15 | disposition home or self-care (01) | DRG 418 ==
LOC: EDSEX → ED 19:43 → MS3 23:03 → MS2 12-02 14:52
PROVIDERS: ADMIT Internal Medicine; ATTEND Specialist
PROC: 0FT44ZZ Resection of Gallbladder, Percutaneous Endoscopic Approach (ICD-10-PCS; principal; 2019-12-03 13:15)
DX: K81.9 Cholecystitis, unspecified (principal); K80.12 Calculus of gallbladder with acute and chronic cholecystitis without obstruction; C79.51 Secondary malignant neoplasm of bone; I10 Essential (primary) hypertension; C61 Malignant neoplasm of prostate; G89.3 Neoplasm related pain (acute) (chronic); E87.6 Hypokalemia; I16.0 Hypertensive urgency; Z79.01 Long term (current) use of anticoagulants; Z86.718 Personal history of other venous thrombosis and embolism; Z79.899 Other long term (current) drug therapy; Z79.891 Long term (current) use of opiate analgesic; Z82.3 Family history of stroke; Z82.49 Family history of ischemic heart disease and other diseases of the circulatory system; Z92.3 Personal history of irradiation
CPT/HCPCS: 36415; 71045; 74177; 76705; 78452; 80048; 80053; 81003; 83690; 84484; 85025; 93005; 93017; 93306; 96365; 96375; 99284; 99285; A9270; A9500; J0131; J1170; J2785; J3010; J7120; Q9967; 81001; 87086

== ENCOUNTER 2019-12-06 23:28 | Outpatient (CLI) | payer MEDICARE | END 2019-12-06 23:29 | disposition critical access hospital (66) | LOC: EMS 23:28 | PROVIDERS: ATTEND Surgery | DX: M25.462 Effusion, left knee (principal); M25.461 Effusion, right knee | CPT/HCPCS: A0425; A0427 ==

== ENCOUNTER 2019-12-07 | Inpatient (IN) | payer MEDICARE ==
--- NOTE | 2019-12-07 00:24 | ED Physician Documentation ---
History of Present Illness - Stated complaint Stated Complaint: LEG SWELLING/PAIN SP GALLBLADDER SURGERY - Chief complaint Chief Complaint: Ext Problem - History obtained from History obtained from: Patient - History of Present Illness Timing: Yesterday Pain level max: 10 (with movement) Pain level now: 8 Improved by: rest Worsened by: movement involving right knee Associated symptoms: fever (in ED) - Additonal information Additional information: discharged from [facility] 12/03 after lap prema; the following day, 12/04, he developed bilateral knee swelling and pain, predominantly right knee. pain progressed to the point of unable to weight-bear due to exacerbation of the pain. unaware of fevers at home but febrile in ED. he says his abdominal discomfort is mild and improving steadily since the procedure. denies h/o joint problems Review of Systems Constitutional: reports: Fever, Chills Eyes: reports: Reviewed and negative Ears: reports: Reviewed and negative Nose: reports: Reviewed and negative Throat: reports: Reviewed and negative Cardiac: reports: Reviewed and negative Respiratory: reports: Reviewed and negative GI: reports: Abdominal Pain (mild, steadily improving since surgery). denies: Nausea, Vomiting : denies: Dysuria, Frequency Skin: reports: Reviewed and negative Musculoskeletal: reports: Joint pain, Joint swelling, Pain with weight bearing Neurologic: denies: Focal weakness, Numbness PD PAST MEDICAL HISTORY - Past Medical History Cardiovascular: Hypertension, Deep vein thrombosis (off blood thinner) Respiratory: None Neuro: None Endocrine/Autoimmune: None GI: None : Other (prostate cancer) HEENT: None Psych: None Musculoskeletal: Other (bone mets) Derm: None - Past Surgical History Past Surgical History: No General: Colonoscopy Ortho: Other (left ankle surgery with screws) HEENT: Tonsil/Adenoidectomy - Present Medications Home Medications: Ambulatory Orders Medication Instructions Recorded Confirmed Abiraterone Acetate [Zytiga] 1,000 mg PO DAILY 12/01/19 12/07/19 Aspirin 81 mg PO DAILY 12/01/19 12/07/19 Oxycodone HCl [Oxycontin] 30 mg PO DAILY PRN 12/01/19 12/07/19 Rivaroxaban [Xarelto] 20 mg PO DAILY 12/01/19 12/07/19 oxyCODONE [Roxicodone] 30 mg PO QID PRN 12/01/19 12/07/19 Lisinopril/Hydrochlorothiazide 1 each PO DAILY #30 tablet 12/04/19 12/07/19 [Lisinopril-Hctz 20-12.5 mg Tab] amLODIPine [Norvasc] 5 mg PO DAILY #30 tablet 12/04/19 12/07/19 - Allergies Allergies/Adverse Reactions: Allergies Allergy/AdvReac Type Severity Reaction Status Date / Time No Known Drug Allergies Allergy Verified 11/30/19 19:50 - Social History Smoking Status: Never smoker Does the pt have substance abuse?: No - POLST Patient has POLST: No POLST Status: Full Code PD ED PE NORMAL - Vitals Vital signs reviewed: Yes - General General: Alert and oriented X 3, Well developed/nourished, Other (obvious painful distress) - HEENT HEENT: Moist mucous membranes - Neck Neck: Supple, no meningeal sign - Cardiac Cardiac: No murmur - Respiratory Respiratory: No respiratory distress, Clear bilaterally - Abdomen Abdomen: Normal bowel sounds, Soft, Non distended, Other (mild ruq TTP without rebound or guarding) - Derm Derm: Normal color, Warm and dry, No rash PD ED PE EXPANDED - Cardiac Cardiac: Tachy, Regular Rhythm - Extremities Extremities: Tenderness, Limited ROM, Swelling, Joint effusion, Other (Right knee is swollen, tender, hot to touch. Limited ROM due to pain. No erythema. Left knee has mild swelling and tenderness, limited ROM due to pain that is not as restricted as compared to right knee) Results - Vitals Vitals: Vital Signs - 24 hr 12/07/19 12/07/19 12/07/19 00:06 00:28 01:06 Temperature 37.8 C H 38.7 C H 37.1 C Heart Rate 119 H 116 H 107 H Heart Rate [ Brachial] Respiratory 16 19 18 Rate Blood Pressure 148/86 H 148/91 H 157/85 H Blood Pressure [Left Brachial artery] O2 Saturation 95 96 95 12/07/19 12/07/19 12/07/19 03:08 03:45 03:58 Temperature 38.2 C H 36.4 C L Heart Rate 109 H 111 H 112 H Heart Rate [ Brachial] Respiratory 20 19 12 Rate Blood Pressure 136/83 H 119/90 H 119/90 H Blood Pressure [Left Brachial artery] O2 Saturation 92 97 100 12/07/19 12/07/19 12/07/19 05:13 05:44 06:10 Temperature 36.3 C L 36.7 C Heart Rate 103 H 112 H Heart Rate [ 98 Brachial] Respiratory 16 14 18 Rate Blood Pressure 107/70 109/77 Blood Pressure 112/73 [Left Brachial artery] O2 Saturation 96 96 93 Oxygen O2 Source Room air Oxygen Flow Rate 2 - Labs Labs: Microbiology 12/07/19 04:15 Gram Stain - Final Knee - Right Laboratory Tests 12/07/19 12/07/19 12/07/19 00:21 00:21 00:21 WBC 16.0 H RBC 4.33 L Hgb 13.0 L Hct 38.1 L MCV 88.0 MCH 30.0 MCHC 34.1 RDW 12.0 Plt Count 346 MPV 9.1 Neut # (Auto) 11.8 H Lymph # (Auto) 2.5 [place] # (Auto) 1.6 H Eos # (Auto) 0.0 Baso # (Auto) 0.1 Absolute Nucleated RBC 0.00 Nucleated RBC % 0.0 ESR Sodium 131 L Potassium 2.7 L Chloride 95 L Carbon Dioxide 25 Anion Gap 11.0 BUN 8 Creatinine 0.7 Estimated GFR (MDRD) 112 Glucose 104 H Lactic Acid 0.7 Uric Acid Calcium 8.2 L Total Bilirubin 3.2 H AST 23 ALT 22 Alkaline Phosphatase 87 C-Reactive Protein Total Protein 6.8 Albumin 3.4 Globulin 3.4 Albumin/Globulin Ratio 1.0 Lipase 20 L Urine Color Urine Clarity Urine pH Ur Specific [place] Urine Protein Urine Glucose (UA) Urine Ketones Urine Occult Blood Urine Nitrite Urine Bilirubin Urine Urobilinogen Ur Leukocyte Esterase Urine RBC Urine WBC Ur Squamous Epith Cells Urine Bacteria Urine Casts Ur Microscopic Review Urine Culture Comments Fluid Source Fluid Color Fluid Clarity Fluid WBC Fluid RBC Fluid Neutrophils % Fluid Lymphocytes % Fld Mesothelial Cell % Fluid Crystals Rheumatoid Factor 12/07/19 12/07/19 12/07/19 00:21 00:21 00:34 WBC RBC Hgb Hct MCV MCH MCHC RDW Plt Count MPV Neut # (Auto) Lymph # (Auto) [place] # (Auto) Eos # (Auto) Baso # (Auto) Absolute Nucleated RBC Nucleated RBC % ESR Sodium Potassium Chloride Carbon Dioxide Anion Gap BUN Creatinine Estimated GFR (MDRD) Glucose Lactic Acid Uric Acid 2.6 Calcium Total Bilirubin AST ALT Alkaline Phosphatase C-Reactive Protein Total Protein Albumin Globulin Albumin/Globulin Ratio Lipase Urine Color ORANGE Urine Clarity CLEAR Urine pH 6.5 Ur Specific [place] 1.025 Urine Protein 30 H Urine Glucose (UA) NEGATIVE Urine Ketones >=80 H Urine Occult Blood TRACE-INTA Urine Nitrite NEGATIVE Urine Bilirubin NEGATIVE Urine Urobilinogen 2 H Ur Leukocyte Esterase NEGATIVE Urine RBC 0-5 Urine WBC 0-3 Ur Squamous Epith Cells RARE Squamous Urine Bacteria None Seen Urine Casts 0-2 Hyaline Casts Ur Microscopic Review INDICATED Urine Culture Comments NOT INDICATED Fluid Source Fluid Color Fluid Clarity Fluid WBC Fluid RBC Fluid Neutrophils % Fluid Lymphocytes % Fld Mesothelial Cell % Fluid Crystals Rheumatoid Factor NEGATIVE 12/07/19 12/07/19 12/07/19 03:21 03:21 04:15 WBC RBC Hgb Hct MCV MCH MCHC RDW Plt Count MPV Neut # (Auto) Lymph # (Auto) [place] # (Auto) Eos # (Auto) Baso # (Auto) Absolute Nucleated RBC Nucleated RBC % ESR 35 H Sodium Potassium Chloride Carbon Dioxide Anion Gap BUN Creatinine Estimated GFR (MDRD) Glucose Lactic Acid Uric Acid Calcium Total Bilirubin AST ALT Alkaline Phosphatase C-Reactive Protein 19.9 H Total Protein Albumin Globulin Albumin/Globulin Ratio Lipase Urine Color Urine Clarity Urine pH Ur Specific [place] Urine Protein Urine Glucose (UA) Urine Ketones Urine Occult Blood Urine Nitrite Urine Bilirubin Urine Urobilinogen Ur Leukocyte Esterase Urine RBC Urine WBC Ur Squamous Epith Cells Urine Bacteria Urine Casts Ur Microscopic Review Urine Culture Comments Fluid Source KNEE Fluid Color YELLOW Fluid Clarity CLOUDY Fluid WBC 57855 Fluid RBC [id number] Fluid Neutrophils % 96 Fluid Lymphocytes % 4 Fld Mesothelial Cell % Not Reportable Fluid Crystals Rheumatoid Factor 12/07/19 04:15 WBC RBC Hgb Hct MCV MCH MCHC RDW Plt Count MPV Neut # (Auto) Lymph # (Auto) [place] # (Auto) Eos # (Auto) Baso # (Auto) Absolute Nucleated RBC Nucleated RBC % ESR Sodium Potassium Chloride Carbon Dioxide Anion Gap BUN Creatinine Estimated GFR (MDRD) Glucose Lactic Acid Uric Acid Calcium Total Bilirubin AST ALT Alkaline Phosphatase C-Reactive Protein Total Protein Albumin Globulin Albumin/Globulin Ratio Lipase Urine Color Urine Clarity Urine pH Ur Specific [place] Urine Protein Urine Glucose (UA) Urine Ketones Urine Occult Blood Urine Nitrite Urine Bilirubin Urine Urobilinogen Ur Leukocyte Esterase Urine RBC Urine WBC Ur Squamous Epith Cells Urine Bacteria Urine Casts Ur Microscopic Review Urine Culture Comments Fluid Source Fluid Color Fluid Clarity Fluid WBC Fluid RBC Fluid Neutrophils % Fluid Lymphocytes % Fld Mesothelial Cell % Fluid Crystals NONE SEEN Rheumatoid Factor - Rads (name of study) Right knee xrays Radiology: Prelim report reviewed, See rad report chest xray Radiology: Prelim report reviewed, See rad report Procedures - Arthrocentesis Joint: Knee, Right Preparation: Consent obtained (verbal consent including risks and benefits), Sterile prep and drape Anesthesia: Lidocaine 1% Fluid: Sent for cell count, Cloudy, Sent for crystals, Sent for culture, Fluid obtained - cc (10), Sent for gram stain Aftercare: Dressing applied, No complications, Patient tolerated well PD MEDICAL DECISION MAKING - ED course Complexity details: reviewed old records, reviewed results, re-evaluated patient, considered differential, d/w patient Departure - Departure Disposition: ED Place in Observation Clinical Impression: Hypokalemia, Postoperative fever Knee pain Qualifiers: Chronicity: acute Laterality: bilateral Qualified Code(s): M25.561 - Pain in right knee Condition: Stable Discharge Date/Time: 12/07/19 05:47
[2019-12-07 00:28] LABS: BASOPHILS # (AUTO) 0.1 10^3/uL (0.0-0.1); BASOPHILS % (AUTO) 0.3 %; EOSINOPHILS % (AUTO) 0.1 %; LYMPHOCYTES # (AUTO) 2.5 10^3/uL (1.5-3.5); LYMPHOCYTES % (AUTO) 15.4 %; MEAN CORPUSCULAR HGB CONC 34.1 g/dL (32.0-36.0); MEAN PLATELET VOLUME 9.1 fL (7.4-11.4); MONOCYTES # (AUTO) 1.6 10^3/uL (0.0-1.0); MONOCYTES % (AUTO) 9.9 %; NEUTROPHILS # (AUTO) 11.8 10^3/uL (1.5-6.6); NEUTROPHILS % (AUTO) 73.7 %; PLT - PLATELET COUNT 346 10^3/uL (130-450); RED BLOOD COUNT 4.33 10^6/uL (4.70-6.10)
[2019-12-07] MEDS ORDERED: HYDROmorphone 1 MG/ML SYRINGE IVP STA ×3 (00:37→03:36)
[2019-12-07 00:38] LABS: GLUCOSE, URINE (UA) NEGATIVE (NEGATIVE); KETONES,URINE (UA) >=80 mg/dL (NEGATIVE); LEUKOCYTE ESTERASE, URINE NEGATIVE (NEGATIVE); NITRITE,URINE NEGATIVE (NEGATIVE); OCCULT BLOOD,URINE TRACE-INTA (NEGATIVE); PH,URINE 6.5 PH (5.0-7.5); PROTEIN,URINE 30 mg/dL (NEGATIVE); UROBILINOGEN,URINE 2 E.U./dL (NORMAL)
[2019-12-07] MEDS ORDERED: ACETAMINOPHEN 325 MG TABLET PO STA (00:38)
[2019-12-07 00:41] LABS: BILIRUBIN,URINE NEGATIVE (NEGATIVE); CLARITY,URINE CLEAR (CLEAR); ICTOTEST,URINE NEGATIVE
[2019-12-07 00:41] LABS: ALBUMIN 3.4 g/dL (3.2-5.5); BILIRUBIN,TOTAL 3.2 mg/dL (0.2-1.0); CALCIUM 8.2 mg/dL (8.5-10.3); CREATININE 0.7 mg/dL (0.6-1.2); TOTAL PROTEIN 6.8 g/dL (6.7-8.2)
[2019-12-07 00:46] LABS: BACTERIA,URINE None Seen /HPF (None Seen); RBC,URINE 0-5 /HPF (0-5); SQUAMOUS EPITHELIAL CELL,UR RARE Squamous (<= Few)
[2019-12-07 00:47] LABS: CASTS, URINE 0-2 Hyaline Casts /LPF
[2019-12-07] MEDS ORDERED: LIDOCAINE 1% 2 ML VIAL SUBQ STA (03:35)
[2019-12-07 05:04] LABS: BF COLOR YELLOW; BF SOURCE KNEE
--- NOTE | 2019-12-07 05:11 | XRAY Report ---
Reason: post-operative fever Procedure Date: 12/07/2019 Accession Number: [id number] / [id number] Procedure: XR - Chest 2 View X-Ray CPT Code: 85085 Final Report FULL RESULT: EXAM: CHEST RADIOGRAPHY EXAM DATE: 12/07/2019 05:01 AM. CLINICAL HISTORY: Post-operative fever. COMPARISON: CHEST 1 VIEW 11/30/2019 11:31 PM. TECHNIQUE: 2 views. FINDINGS: The mediastinal and cardiac silhouettes are normal. There is mild peribronchial thickening without focal consolidation, pleural effusion, or pneumothorax. The osseous thorax is intact. IMPRESSION: Mild peribronchial thickening without focal consolidation. RADIA
[2019-12-07 05:13] LABS: LYMPHOCYTES %,BODY FLUID 4
[2019-12-07] MEDS ORDERED: ACETAMINOPHEN 325 MG TABLET PO PRN (05:14)
[2019-12-07] MEDS ORDERED: ONDANSETRON 4 MG/2 ML VIAL IVP PRN (05:14)
[2019-12-07] MEDS ORDERED: MORPHINE 2 MG/ML CARPUJECT IVP PRN ×2 (05:14→06:56)
--- NOTE | 2019-12-07 05:16 | XRAY Report ---
Reason: swelling, pain Procedure Date: 12/07/2019 Accession Number: [id number] / [id number] Procedure: XR - Knee 3 View RT CPT Code: Final Report FULL RESULT: EXAM: RIGHT KNEE RADIOGRAPHY EXAM DATE: 12/07/2019 05:03 AM. CLINICAL HISTORY: Swelling, pain. COMPARISON: None. TECHNIQUE: 3 views. FINDINGS: Bones: Normal. No fractures or bone lesions. Joints: Chondrocalcinosis. Mild tricompartmental osteoarthritis consisting of osteophyte formation and medial compartment joint space narrowing. Small joint effusion. No subluxation. Soft Tissues: Soft tissue swelling over the suprapatellar region. IMPRESSION: No acute fracture or dislocation. Chondrocalcinosis. Mild osteoarthritis, greatest in the medial compartment. RADIA
[2019-12-07] MEDS ORDERED: POTASSIUM CHLORIDE 20 MEQ TABLET PO STA (05:19)
[2019-12-07] MEDS ORDERED: LACTATED RINGERS 1,000 ML IV ONE ×2 (05:20→06:35)
[2019-12-07] MEDS ORDERED: VANCOMYCIN PER PHARMACY 100 GM in SODIUM CHLORIDE 0.9% 250 ML IV SCH (06:00)
[2019-12-07] MEDS ORDERED: CEFEPIME 2 GM in SODIUM CHLORIDE 0.9% MINIBAG 100 ML IV SCH ×2 (06:00→07:00)
[2019-12-07] MEDS ORDERED: POTASSIUM CHLOR 10 MEQ/100 ML 10 MEQ/100 ML BAG IV SCH ×2 (06:00→09:00)
--- NOTE | 2019-12-07 06:03 | HISTORY & PHYSICAL EXAMINATION ---
Chief Complaint - Chief Complaint Chief Complaint: Bilateral knee pain History of Present Illness - Admitted From Admitted From:: Home - History Obtained From Records Reviewed: Yes History obtained from: Patient, ER Physician, EMR - History of Present Illness HPI Comment/Other: This is a 69-year-old male with a past medical history significant for h ypertension, prostate cancer with metastasis to the bone receiving treatment with Zytiga, history of right upper extremity DVT on Xarelto who presents today complaining of bilateral knee pain that began shortly after he was discharged home a few days ago. He was admitted earlier this month for acute cholecystitis and underwent a laparoscopic cholecystectomy and he was discharged on 03 December. He states that shortly after he went home, he noticed that both of his knees became swollen and were becoming quite painful. The pain became so severe that it restricted his range of motion and his ambulation decreased significantly. He reports no fevers at home but that he was febrile upon his arrival to the emergency department here. He reports no chills, dyspnea, chest pain. He denies any nausea, vomiting, abdominal pain. He is passing gas and he believes he has had 1 bowel movement since his cholecystectomy. He denies any dysuria, urgency, hematuria, rash. He reports no recent travel and denies a sore throat, blurry vision, nasal congestion. He reports no history of tick bites. He is not sexually active and does not recall a prior history of STDs. He reports a history of osteoarthritis but does not recall ever having rheumatoid arthritis or any autoimmune disease. Does have prostate cancer and he follows with Dr. Lott at [place]. He is currently receiving therapy with Zytiga. He is not on prednisone. He reports no IV drug use. He states he did have a meniscal tear in his left knee years ago and this was treated conservatively. He reports his knee pain is 7 out of 10 at rest but is excruciating that the level that he calls it 15 out of 10 with any movement of his knees. He reports no numbness or tingling in his lower extremities. In the emergency department, he was found to be febrile with a temperature of 38.7 C. He was tachycardic with a heart rate of 116. His blood pressure was 140/91. He was not tachypneic and saturating well on room air. Labs are significant for a white count of 16 with a left shift. His sodium is low at 131 and his potassium at 2.7. Lactic acid is normal. His total bilirubin is elevated at 3.2. His urinalysis was unremarkable. His chest x-ray did not reveal a consolidation. The emergency department physician was able to obtain synovial fluid from the right knee and the color was yellow with cloudy clarity. The fluid WBC was 16,040 with 96% neutrophils. There were no crystals seen. Initial Gram stain shows many WBCs but no organisms. Given his presentation, medicine was consulted for admission. Of note, I did discuss goals of care with the patient and he would like to be a full code. History - Past Medical History Cardiovascular: reports: Hypertension, Deep vein thrombosis (Right upper extremity) Respiratory: reports: None Neuro: reports: None Endocrine/Autoimmune: reports: None GI: reports: None : reports: Other (Prostate cancer) HEENT: reports: None Psych: reports: None Musculoskeletal: reports: Other (Bone metastasis secondary to prostate cancer) Derm: reports: None MRSA Hx?: No Other Past Medical History: Prostate CA - Past Surgical History General: reports: Colonoscopy Ortho: reports: Other (left ankle surgery with screws) HEENT: reports: Tonsil/Adenoidectomy - Family & Social History Family History Comment/Other: Reports his father had an aneurysm and a stroke in the past. He does not recall any other family history. Living arrangement: At home Living Situation: With spouse/s.o. Social History Notes: He has lived here on [facility] for the past 26 years with his . 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 He never smoked or drank alcohol. He previously smoked marijuana but quit over 1 year ago. - Substance History Use: Uses substance without health or social issues: NONE - POLST Patient has POLST: No POLST Status: Full Code Meds/Allgy - Home Medications Home Medications: Ambulatory Orders Medication Instructions Recorded Confirmed Abiraterone Acetate [Zytiga] 1,000 mg PO DAILY 12/01/19 12/07/19 Aspirin 81 mg PO DAILY 12/01/19 12/07/19 Oxycodone HCl [Oxycontin] 30 mg PO DAILY PRN 12/01/19 12/07/19 Rivaroxaban [Xarelto] 20 mg PO DAILY 12/01/19 12/07/19 oxyCODONE [Roxicodone] 30 mg PO DAILY PRN 12/01/19 12/07/19 Lisinopril/Hydrochlorothiazide 1 each PO DAILY #30 tablet 12/04/19 12/07/19 [Lisinopril-Hctz 20-12.5 mg Tab] amLODIPine [Norvasc] 5 mg PO DAILY #30 tablet 12/04/19 12/07/19 - Allergies Allergies/Adverse Reactions: Allergies Allergy/AdvReac Type Severity Reaction Status Date / Time No Known Drug Allergies Allergy Verified 11/30/19 19:50 Review of Systems - Constitutional Constitutional: denies: Fatigue, Fever, Chills, Weakness, Poor appetite - Eyes Eyes: denies: Blurred vision - Ears, Nose & Throat Ears, Nose & Throat: denies: Nasal congestion, Sore throat - Cardiovascular Cariovascular: denies: Chest pain, Edema, Exertional dyspnea, Decr. exercise tolerance - Respiratory Respiratory: denies: Cough, SOB at rest, SOB with exertion - Gastrointestinal Gastrointestinal: reports: Constipation. denies: Abdominal pain, Nausea, Vomiting - Genitourinary Genitourinary: denies: Dysuria, Frequency, Urgency, Hematuria - Musculoskeletal Musculoskeletal: reports: Stiffness, Limited range of motion, Joint pain, Joint swelling - Integumentary Integumentary: denies: Rash, Lesions - Neurological Neurological: denies: General weakness, Focal weakness, Numbness - Hematologic/Lymphatic Hematologic/Lymphatic: denies: Bruising, Bleeding tendencies - All Other Systems All Other Systems: reports: Reviewed and negative Prior Level of Functionality: He is independent with his ADLs. Exam - Vital Signs Reviewed Vital Signs: Yes Vital Signs: Vital Signs x48h Temp Pulse Resp BP Pulse Ox 12/07/19 05:44 36.3 C L 112 H 14 109/77 96 12/07/19 05:13 103 H 16 107/70 96 12/07/19 03:58 36.4 C L 112 H 12 119/90 H 100 12/07/19 03:45 111 H 19 119/90 H 97 12/07/19 03:08 38.2 C H 109 H 20 136/83 H 92 12/07/19 01:06 37.1 C 107 H 18 157/85 H 95 12/07/19 00:28 38.7 C H 116 H 19 148/91 H 96 12/07/19 00:06 37.8 C H 119 H 16 148/86 H 95 - Physical Exam General Appearance: positive: Alert, Moderate distress Eyes Bilateral: positive: Normal inspection, Conjunctivae nml ENT: positive: ENT inspection nml, Dry mucous membranes Neck: positive: Nml inspection Respiratory: positive: No respiratory distress. negative: Wheezes, Rales, Rhonchi Cardiovascular: positive: No murmur, Tachycardia. negative: Bradycardia, Systolic murmur, Diastolic murmur Abdomen: positive: Non-tender, Nml bowel sounds, No distention, Other (The incisions from his prior cholecystectomy appear clean without erythema.). negative: Tenderness, Guarding, Rebound Skin: positive: No rash, Warm, Dry Extremities: positive: Pedal edema (Trace pitting edema in the bilateral lower extremities.), Joint swelling (He has significant suprapatellar edema in the right knee. The knee is warm to touch and tender to palpation. He has significant pain with passive and active flexion of the knee. There is no significant erythema. His left knee has an effusion over the medial aspect of the knee. This is tender to touch and warm. He has significant pain with passive and active flexion. No significant erythema). negative: Non-tender, Full ROM, Nml appearance, Calf tenderness, Ernesto's sign/cords Neurologic/Psychiatric: positive: Oriented x3, Other (He is able to move his lower extremities distally. Range of motion is limited at the knee given the effusion and pain.). negative: Disoriented to person, Disoriented to place, Disoriented to time Sepsis Event Note (H) - Evaluation Current Stage of Sepsis: Sepsis Possible source of Sepsis: positive: Bone/Joint - Sepsis Criteria Sepsis Criteria: Recorded Temperature greater than 38.3C or Less than 36C, Recorded Heart Rate greater than 90 bpm, WBC count greater than 12,000 or less than 4000, Hepatic: Bilirubin greater than 2mg/dl Conclusion/Plan - Problem List (1) Sepsis Conclusion/Plan: He meets sepsis criteria given his fever, tachycardia, white count with left shift. Suspect this is secondary to septic arthritis. There are no other obvious sources of infection at the moment. His urinalysis is unremarkable as well as his chest x-ray. He does not have symptoms of an upper respiratory tract infection therefore we will not check influenza. For the time being, we will administer vancomycin and cefepime given he is immunocompromised. Blood cultures have been drawn and are pending. We will give him 2 liters of lactated Ringer's and start him on maintenance fluid. Trend his CBC. (2) Septic arthritis of knee, bilateral Conclusion/Plan: Suspect that his bilateral joint swelling and pain is secondary to septic arthritis. He is febrile with a white count. Both of his knees are warm to touch and he has significant pain with passive and active flexion. The synovial fluid obtained in the emergency department of the right knee Revealed yellow cloudy fluid with 16,040 WBCs and 1000 RBCs. There were 96% neutrophils. No crystals were visualized. Initial Gram stain is negative but there are many WBCs. Despite WBCs not quite reaching the typical numbers seen in septic arthritis, he is immunocompromised which may cause him to have lower than expected WBCs. The x-ray of the right knee showed no acute fracture or dislocation. There was mild osteoarthritis and soft tissue swelling over the suprapatellar region. Other differentials include inflammatory arthritis such as rheumatoid arthritis. Do not suspect gout at the moment given lack of crystals present. At this time, we will start him on vancomycin and cefepime to cover for staph and Pseudomonas given his immunocompromised. We will treat his pain with morphine IV and oxycodone as needed. We will check a ESR, CRP, DEEJAY, RF. We will follow-up cultures from the right knee. We will also obtain Dopplers of the lower extremity to evaluate for DVT given his prior history although this is less likely but he was off of his Xarelto for his cholecystectomy recently. We will also obtain x-ray of the left knee. Will consult orthopedics to evaluate the patient. (3) Hypokalemia Conclusion/Plan: His potassium is low at 2.7 this has been replaced intravenously and orally. We will continue to monitor and replace as needed. (4) Hyponatremia Conclusion/Plan: Sodium is low at 131. Suspect is hypovolemic hyponatremia as he appears slightly hypervolemic on exam. This should improve with IV fluids. We will continue to monitor his sodium. (5) Hypertension Conclusion/Plan: He is currently normotensive and given the concern for sepsis, we will hold his home antihypertensives for the time being. Qualifiers: Hypertension type: essential hypertension Qualified Code(s): I10 - Essential (primary) hypertension (6) Prostate cancer metastatic to bone Conclusion/Plan: He has known prostate cancer with metastasis to the bone and he follows with Dr. Gramajo at [place]. He is currently on Zytiga. He will continue outpatient follow-up. (7) Hx of deep venous thrombosis Conclusion/Plan: He has history of DVT in the right upper extremity for which he takes Xarelto. He had been off of that for his cholecystectomy last week but this has been resumed. We will hold it for the time being given he may need further intervention for his bilateral knee effusions. If there will be no surgical intervention, we will resume his Xarelto. - Lab Results Lab results reviewed: Yes Fish Bones: 12/07/19 00:21 12/07/19 00:21 - Diagnostic Imaging Results Diagnostic Imaging Results: positive: Final report reviewed Core Measures - Anticipated LOS I expect patient to be DC'd or transferred within 96 hours.: Yes - Issues Hospital Issues and Management Plan: 69-year-old immunocompromised male with prostate cancer presents with bilateral knee pain along with fevers, tachycardia, leukocytosis. He meets SIRS criteria and suspect that he may be septic secondary to septic arthritis. We will admit for IV antibiotics and orthopedics consult - DVT/VTE - Prophylaxis VTE/DVT Device ordered at admit?: Yes VTE/DVT Prophylaxis med ordered at admit?: No Not Ordered - Medical Reason: Not indicated
[2019-12-07 06:48] LABS: CC,BF RBC 10000 /mm^3
--- NOTE | 2019-12-07 07:34 | PHARMACY PROGRESS NOTE ---
- Best Possible Medication History Admit Date and Time: 12/07/19 0622 Processed by: Pharmacy Medication History completed: Yes Patient Interview: Completed Secondary Source(s): Pharmacy records, Insurance records, Previous admit records As the person ultimately responsible for medication therapy, providers are able to order a medication from an existing home medication list in [facility] via the "Reconcile Routine" prior to Confirmation of that medication by support services tech. Such practice is discouraged except when the physician, in their clinical judgment, deems that a medical need exists for a medication without regard to previous use.
[2019-12-07] MEDS ORDERED: VANCOMYCIN INJ 2.5 GM in SODIUM CHLORIDE 0.9% 500 ML IV ONE (08:00)
[2019-12-07 08:02] LABS: RHEUMATOID FACTOR NEGATIVE (Negative)
[2019-12-07] MEDS: SODIUM CHLORIDE FLUSH 0.9% 10 ML SYRINGE IVP SCH ×2 (09:14→16:53)
[2019-12-07] MEDS: CEFEPIME 2 GM in SODIUM CHLORIDE 0.9% MINIBAG 100 ML IV SCH ×2 (09:17→21:22)
--- NOTE | 2019-12-07 10:07 | XRAY Report ---
Reason: Left knee swelling and pain. Procedure Date: 12/07/2019 Accession Number: [id number] / [id number] Procedure: XR - Knee 4 View LT CPT Code: Final Report FULL RESULT: EXAM: LEFT KNEE RADIOGRAPHY EXAM DATE: 12/07/2019 07:51 AM. CLINICAL HISTORY: Left knee swelling and pain. COMPARISON: KNEE 3 VIEW RT 12/07/2019 4:35 AM. TECHNIQUE: 4 views. FINDINGS: Bones: No fractures or bone lesions. Joints: Mild tricompartment DJD. Meniscal chondrocalcinosis. Moderate joint effusion. Soft Tissues: Unremarkable. IMPRESSION: 1. No acute osseous abnormality. 2. Mild dry, mental DJD. Meniscal chondrocalcinosis. 3. Moderate joint effusion. RADIA
--- NOTE | 2019-12-07 10:40 | PROVIDER PROGRESS NOTE ---
Subjective - Prog Note Date Prog Note Date: 12/07/19 Prog Note Time: 10:38 - Subjective Pt reports feeling: Worse (Paient complaining of bilateral knee swelling and pain R>L, worsening over the past two days. Has had some fever as well. No preceding trauma. No hx of past joint infections. No hx of diabets but has been treated for metastatic prostate Ca with hormone and chemotherapeutic agents. No hx of gout or inflammatory arthritis.) Objective - Vital Signs/Intake & Output Vital Signs: Vital Signs x48h Temp Pulse Pulse Resp BP BP Pulse Ox 12/07/19 08:09 36.9 C 98 20 137/85 H 95 12/07/19 06:10 36.7 C 98 18 112/73 93 12/07/19 05:44 36.3 C L 112 H 14 109/77 96 12/07/19 05:13 103 H 16 107/70 96 12/07/19 03:58 36.4 C L 112 H 12 119/90 H 100 12/07/19 03:45 111 H 19 119/90 H 97 12/07/19 03:08 38.2 C H 109 H 20 136/83 H 92 Intake & Output: Intake & Output 12/04/19 12/05/19 12/06/19 12/08/19 23:59 23:59 23:59 00:59 Intake Total 2100 Output Total 300 Balance 1800 - Lab Results Fish Bones: 12/07/19 00:21 12/07/19 00:21 Other Labs: Lab Results x24hrs 12/07/19 12/07/19 12/07/19 Range/Units 04:15 04:15 03:21 WBC (4.8-10.8) x10^3/uL RBC (4.70-6.10) 10^6/uL Hgb (14.0-18.0) g/dL Hct (42.0-52.0) % MCV (80.0-94.0) fL MCH (27.0-31.0) pg MCHC (32.0-36.0) g/dL RDW (12.0-15.0) % Plt Count (130-450) 10^3/uL MPV (7.4-11.4) fL Neut # (Auto) (1.5-6.6) 10^3/uL Lymph # (Auto) (1.5-3.5) 10^3/uL [place] # (Auto) (0.0-1.0) 10^3/uL Eos # (Auto) (0.0-0.7) 10^3/uL Baso # (Auto) (0.0-0.1) 10^3/uL Absolute Nucleated RBC x10^3/uL Nucleated RBC % /100WBC ESR (0-20) mm/Hr Sodium (135-145) mmol/L Potassium (3.5-5.0) mmol/L Chloride (101-111) mmol/L Carbon Dioxide (21-32) mmol/L Anion Gap (6-13) BUN (6-20) mg/dL Creatinine (0.6-1.2) mg/dL Estimated GFR (MDRD) (>89) Glucose (70-100) mg/dL Lactic Acid (0.5-2.2) mmol/L Uric Acid (2.6-7.2) mg/dL Calcium (8.5-10.3) mg/dL Total Bilirubin (0.2-1.0) mg/dL AST (10-42) IU/L ALT (10-60) IU/L Alkaline Phosphatase (42-121) IU/L C-Reactive Protein 19.9 H (0-1.0) mg/dL Total Protein (6.7-8.2) g/dL Albumin (3.2-5.5) g/dL Globulin (2.1-4.2) g/dL Albumin/Globulin Ratio (1.0-2.2) Lipase (22-51) U/L Urine Color Urine Clarity (CLEAR) Urine pH (5.0-7.5) PH Ur Specific [place] (1.002-1.030) Urine Protein (NEGATIVE) mg/dL Urine Glucose (UA) (NEGATIVE) mg/dL Urine Ketones (NEGATIVE) mg/dL Urine Occult Blood (NEGATIVE) Urine Nitrite (NEGATIVE) Urine Bilirubin (NEGATIVE) Urine Urobilinogen (NORMAL) E.U./dL Ur Leukocyte Esterase (NEGATIVE) Urine RBC (0-5) /HPF Urine WBC (0-3) /HPF Ur Squamous Epith Cells (<= Few) Urine Bacteria (None Seen) /HPF Urine Casts /LPF Ur Microscopic Review Urine Culture Comments Fluid Source KNEE Fluid Color YELLOW Fluid Clarity CLOUDY Fluid WBC 56155 /mm^3 Fluid RBC 10546 /mm^3 Fluid Neutrophils % 96 % Fluid Lymphocytes % 4 Fld Mesothelial Cell % Not Reportable Fluid Crystals NONE SEEN (N) Rheumatoid Factor (Negative) 12/07/19 12/07/19 12/07/19 Range/Units 03:21 00:34 00:21 WBC (4.8-10.8) x10^3/uL RBC (4.70-6.10) 10^6/uL Hgb (14.0-18.0) g/dL Hct (42.0-52.0) % MCV (80.0-94.0) fL MCH (27.0-31.0) pg MCHC (32.0-36.0) g/dL RDW (12.0-15.0) % Plt Count (130-450) 10^3/uL MPV (7.4-11.4) fL Neut # (Auto) (1.5-6.6) 10^3/uL Lymph # (Auto) (1.5-3.5) 10^3/uL [place] # (Auto) (0.0-1.0) 10^3/uL Eos # (Auto) (0.0-0.7) 10^3/uL Baso # (Auto) (0.0-0.1) 10^3/uL Absolute Nucleated RBC x10^3/uL Nucleated RBC % /100WBC ESR 35 H (0-20) mm/Hr Sodium (135-145) mmol/L Potassium (3.5-5.0) mmol/L Chloride (101-111) mmol/L Carbon Dioxide (21-32) mmol/L Anion Gap (6-13) BUN (6-20) mg/dL Creatinine (0.6-1.2) mg/dL Estimated GFR (MDRD) (>89) Glucose (70-100) mg/dL Lactic Acid (0.5-2.2) mmol/L Uric Acid (2.6-7.2) mg/dL Calcium (8.5-10.3) mg/dL Total Bilirubin (0.2-1.0) mg/dL AST (10-42) IU/L ALT (10-60) IU/L Alkaline Phosphatase (42-121) IU/L C-Reactive Protein (0-1.0) mg/dL Total Protein (6.7-8.2) g/dL Albumin (3.2-5.5) g/dL Globulin (2.1-4.2) g/dL Albumin/Globulin Ratio (1.0-2.2) Lipase (22-51) U/L Urine Color ORANGE Urine Clarity CLEAR (CLEAR) Urine pH 6.5 (5.0-7.5) PH Ur Specific [place] 1.025 (1.002-1.030) Urine Protein 30 H (NEGATIVE) mg/dL Urine Glucose (UA) NEGATIVE (NEGATIVE) mg/dL Urine Ketones >=80 H (NEGATIVE) mg/dL Urine Occult Blood TRACE-INTA (NEGATIVE) Urine Nitrite NEGATIVE (NEGATIVE) Urine Bilirubin NEGATIVE (NEGATIVE) Urine Urobilinogen 2 H (NORMAL) E.U./dL Ur Leukocyte Esterase NEGATIVE (NEGATIVE) Urine RBC 0-5 (0-5) /HPF Urine WBC 0-3 (0-3) /HPF Ur Squamous Epith Cells RARE Squamous (<= Few) Urine Bacteria None Seen (None Seen) /HPF Urine Casts 0-2 Hyaline Casts /LPF Ur Microscopic Review INDICATED Urine Culture Comments NOT INDICATED Fluid Source Fluid Color Fluid Clarity Fluid WBC /mm^3 Fluid RBC /mm^3 Fluid Neutrophils % % Fluid Lymphocytes % Fld Mesothelial Cell % Fluid Crystals (N) Rheumatoid Factor NEGATIVE (Negative) 12/07/19 12/07/19 12/07/19 Range/Units 00:21 00:21 00:21 WBC (4.8-10.8) x10^3/uL RBC (4.70-6.10) 10^6/uL Hgb (14.0-18.0) g/dL Hct (42.0-52.0) % MCV (80.0-94.0) fL MCH (27.0-31.0) pg MCHC (32.0-36.0) g/dL RDW (12.0-15.0) % Plt Count (130-450) 10^3/uL MPV (7.4-11.4) fL Neut # (Auto) (1.5-6.6) 10^3/uL Lymph # (Auto) (1.5-3.5) 10^3/uL [place] # (Auto) (0.0-1.0) 10^3/uL Eos # (Auto) (0.0-0.7) 10^3/uL Baso # (Auto) (0.0-0.1) 10^3/uL Absolute Nucleated RBC x10^3/uL Nucleated RBC % /100WBC ESR (0-20) mm/Hr Sodium 131 L (135-145) mmol/L Potassium 2.7 L (3.5-5.0) mmol/L Chloride 95 L (101-111) mmol/L Carbon Dioxide 25 (21-32) mmol/L Anion Gap 11.0 (6-13) BUN 8 (6-20) mg/dL Creatinine 0.7 (0.6-1.2) mg/dL Estimated GFR (MDRD) 112 (>89) Glucose 104 H (70-100) mg/dL Lactic Acid 0.7 (0.5-2.2) mmol/L Uric Acid 2.6 (2.6-7.2) mg/dL Calcium 8.2 L (8.5-10.3) mg/dL Total Bilirubin 3.2 H (0.2-1.0) mg/dL AST 23 (10-42) IU/L ALT 22 (10-60) IU/L Alkaline Phosphatase 87 (42-121) IU/L C-Reactive Protein (0-1.0) mg/dL Total Protein 6.8 (6.7-8.2) g/dL Albumin 3.4 (3.2-5.5) g/dL Globulin 3.4 (2.1-4.2) g/dL Albumin/Globulin Ratio 1.0 (1.0-2.2) Lipase 20 L (22-51) U/L Urine Color Urine Clarity (CLEAR) Urine pH (5.0-7.5) PH Ur Specific [place] (1.002-1.030) Urine Protein (NEGATIVE) mg/dL Urine Glucose (UA) (NEGATIVE) mg/dL Urine Ketones (NEGATIVE) mg/dL Urine Occult Blood (NEGATIVE) Urine Nitrite (NEGATIVE) Urine Bilirubin (NEGATIVE) Urine Urobilinogen (NORMAL) E.U./dL Ur Leukocyte Esterase (NEGATIVE) Urine RBC (0-5) /HPF Urine WBC (0-3) /HPF Ur Squamous Epith Cells (<= Few) Urine Bacteria (None Seen) /HPF Urine Casts /LPF Ur Microscopic Review Urine Culture Comments Fluid Source Fluid Color Fluid Clarity Fluid WBC /mm^3 Fluid RBC /mm^3 Fluid Neutrophils % % Fluid Lymphocytes % Fld Mesothelial Cell % Fluid Crystals (N) Rheumatoid Factor (Negative) 12/07/19 Range/Units 00:21 WBC 16.0 H (4.8-10.8) x10^3/uL RBC 4.33 L (4.70-6.10) 10^6/uL Hgb 13.0 L (14.0-18.0) g/dL Hct 38.1 L (42.0-52.0) % MCV 88.0 (80.0-94.0) fL MCH 30.0 (27.0-31.0) pg MCHC 34.1 (32.0-36.0) g/dL RDW 12.0 (12.0-15.0) % Plt Count 346 (130-450) 10^3/uL MPV 9.1 (7.4-11.4) fL Neut # (Auto) 11.8 H (1.5-6.6) 10^3/uL Lymph # (Auto) 2.5 (1.5-3.5) 10^3/uL [place] # (Auto) 1.6 H (0.0-1.0) 10^3/uL Eos # (Auto) 0.0 (0.0-0.7) 10^3/uL Baso # (Auto) 0.1 (0.0-0.1) 10^3/uL Absolute Nucleated RBC 0.00 x10^3/uL Nucleated RBC % 0.0 /100WBC ESR (0-20) mm/Hr Sodium (135-145) mmol/L Potassium (3.5-5.0) mmol/L Chloride (101-111) mmol/L Carbon Dioxide (21-32) mmol/L Anion Gap (6-13) BUN (6-20) mg/dL Creatinine (0.6-1.2) mg/dL Estimated GFR (MDRD) (>89) Glucose (70-100) mg/dL Lactic Acid (0.5-2.2) mmol/L Uric Acid (2.6-7.2) mg/dL Calcium (8.5-10.3) mg/dL Total Bilirubin (0.2-1.0) mg/dL AST (10-42) IU/L ALT (10-60) IU/L Alkaline Phosphatase (42-121) IU/L C-Reactive Protein (0-1.0) mg/dL Total Protein (6.7-8.2) g/dL Albumin (3.2-5.5) g/dL Globulin (2.1-4.2) g/dL Albumin/Globulin Ratio (1.0-2.2) Lipase (22-51) U/L Urine Color Urine Clarity (CLEAR) Urine pH (5.0-7.5) PH Ur Specific [place] (1.002-1.030) Urine Protein (NEGATIVE) mg/dL Urine Glucose (UA) (NEGATIVE) mg/dL Urine Ketones (NEGATIVE) mg/dL Urine Occult Blood (NEGATIVE) Urine Nitrite (NEGATIVE) Urine Bilirubin (NEGATIVE) Urine Urobilinogen (NORMAL) E.U./dL Ur Leukocyte Esterase (NEGATIVE) Urine RBC (0-5) /HPF Urine WBC (0-3) /HPF Ur Squamous Epith Cells (<= Few) Urine Bacteria (None Seen) /HPF Urine Casts /LPF Ur Microscopic Review Urine Culture Comments Fluid Source Fluid Color Fluid Clarity Fluid WBC /mm^3 Fluid RBC /mm^3 Fluid Neutrophils % % Fluid Lymphocytes % Fld Mesothelial Cell % Fluid Crystals (N) Rheumatoid Factor (Negative) - Diagnostic Imaging Diagnostic Imaging Comments: XR of knee show no acute fracture/dislocation. Some chondrocalcinosis of meniscus seen - Other Results/Comments Other Results/Comments: EXAM: R>L knee effusion/swelling. Minimal redness or warmth. Difusely tender about knee. Ligaments - stable. Limited ROM of about 20 degrees, due to pain. N/V ok distally. Sepsis Event Note (H) - Evaluation Current Stage of Sepsis: Sepsis Possible source of Sepsis: positive: Bone/Joint - Sepsis Criteria Sepsis Criteria: Recorded Temperature greater than 38.3C or Less than 36C, Recorded Heart Rate greater than 90 bpm, WBC count greater than 12,000 or less than 4000, Hepatic: Bilirubin greater than 2mg/dl Assessment/Plan - Problem List (1) Knee pain Impression: Inflamed knees of unknown etiology - ?septic joint or imflammatory arthritis PLAN: Right knee still has a tense effusion present. Patient is willing to have a repeat aspiration. After alcohol skin prep, 18 gauge needle introduced supralaterally about patella and 105 ml of cloudy, yellowish joint aspirated. Patient tolerated procedure well. Less painful afterwards. Fluid sent for synovial fluid analysis and gram stain with aerobic and anerobic C&S. COntinue antibiotics, pending C&S results. Medicine exploring possibility of side effect of chemotherapeutic agent causing joint swelling with oncologist. Qualifiers: Chronicity: acute Laterality: bilateral Qualified Code(s): M25.561 - Pain in right knee; M25.562 - Pain in left knee
[2019-12-07] MEDS: HYDROmorphone 1 MG/ML SYRINGE IVP PRN ×4 (11:20→19:55)
--- NOTE | 2019-12-07 11:20 | PHARMACY PROGRESS NOTE ---
- Therapy Status Vancomycin regimen day #: 1 Therapy status: Awaiting steady state Basis for treatment: Empirical Treatment indication: SEPSIS AND PRESUMED SEPTIC ARTHRITIS Trough goal: 15-20 Concurrent antibiotics: CEFEPIME - KRISTEN Risk Risk level for Acute Kidney Injury: Moderate Acute Kidney Injury risk factors: Goal trough >15, Acute hypotensive event, Sepsis - Monitoring and Recommendation Clinical response to treatment: I&O Previous 24 hours 12/05/19 12/06/19 12/08/19 23:59 23:59 00:59 Intake Total 2100 Output Total 585 Balance 1515 Lab Results 12/07/19 12/07/19 03:21 00:21 ESR 35 H BUN 8 Creatinine 0.7 Estimated GFR (MDRD) 112 Cultures 12/07/19 04:15 Knee - Right Gram Stain - Final Monitoring plan: Daily serum creatinine Next trough due prior to maintenance dose #: 4 Next trough due (date/time): 12/09/19 AT 0930 Areas for additional monitoring: IV to PO when appropriate, Therapy de- escalation based on culture results Pharmacy recommendation: Continue current regime
--- NOTE | 2019-12-07 11:24 | CONSULTATION NOTE ---
DATE OF SERVICE: 11/30/2019 Physician: Damon Haywood MD REFERRING PHYSICIAN: Dr. Mason Bella of the medical service. CHIEF COMPLAINT: "Both my knees hurt." HISTORY OF PRESENT ILLNESS: The patient is a 69-year-old male with metastatic prostate can cer, currently treated with hormone and chemotherapeutic agents who is now being evaluated for bilate ral knee pain. The patient had a recent admission to the hospital at [facility] for cholecystit is and underwent a cholecystectomy. He was discharged about 4-5 days ago. Two days ago, however, he began noticing right worse than left knee swelling and pain. There was no trauma to either knee. T he patient has had a low-grade temperature associated with the knee problem. Denies any prior knee j oint infections, except for a finger Staph infection many years ago. Also, denies any history of gou t or inflammatory arthritis. No family history for either gout or inflammatory arthritis. The patie nt is not diabetic. PHYSICAL EXAMINATION: The patient's bilateral knees were inspected. The right knee shows a still 2- 3+ rather tense effusion present in his knee. There is some mild warmth, minimal erythema appreciate d. The patient was quite diffusely tender around the knee. He was able to move his knee about 20 de grees, albeit it was painful at extreme ranges of motion. Ligaments appear to be stable; but again, this has provoked a fair amount of pain. Neurovascular appears to be intact distally in the extremit y. Examination of the patient's left knee shows less severe signs. Less swelling around the knee. Agai n, minimal warmth, erythema appreciated. Ligaments appear to be stable. Had better range of motion, having about 30-40 degrees of motion, but he did seem to be still somewhat exaggerated in his pain r esponse with my exam of the left knee. Neurovascular appears to be intact distally as well. Aspiration of his right knee that was done by the emergency room physician showed a Gram stain of man y white cells seen, but no organisms seen. Analysis of his joint fluid showed a white cell count of 16,000 with 96% neutrophils. No crystals seen on the fluid. ASSESSMENT 1. Bilateral knee effusions with associated pain, greater on the right and left side. Unclear whe ther this is an inflammatory arthritic process or an infection. 2. History of metastatic prostate cancer--currently on hormonal and chemotherapeutic agents. PLAN: We will await the final culture results to see if we need to change the empirical dual antibio tic regimen that was started on the patient. Because of his continued rather large effusion on the r ight side, I have offered to do a repeat aspiration of the knee. He is agreeable to this. We will d o this a little later in the morning after he has ultrasound study of his legs being completed for wo rkup of possible DVT. TD: 12/07/2019 10:25
[2019-12-07 11:56] LABS: BF COLOR YELLOW; BF SOURCE SYNOVIAL; CC,BF RBC 10000 /mm^3
[2019-12-07] MEDS: methylPREDNISolone SUCCINATE 40 MG/ML VIAL IVP SCH ×2 (12:14→21:55)
[2019-12-07 12:18] LABS: LYMPHOCYTES %,BODY FLUID 4
[2019-12-07 12:19] LABS: MESOTHELIAL %, BF 0 %; MONOCYTES %,BODY FLUID 4 %
[2019-12-07] MEDS: LACTATED RINGERS 1,000 ML IV SCH (12:31)
[2019-12-07] MEDS: POTASSIUM CHLOR 10 MEQ/100 ML 10 MEQ/100 ML BAG IV SCH ×3 (12:37→16:53)
--- NOTE | 2019-12-07 13:27 | Ultrasound Report ---
Reason: Bilateral leg swelling. Knee pain. History of DVT. Procedure Date: 12/07/2019 Accession Number: [id number] / [id number] Procedure: US - Duplex Ext Veins Bilateral CPT Code: Final Report FULL RESULT: EXAM: BILATERAL LOWER EXTREMITY VENOUS ULTRASOUND EXAM DATE: 12/07/2019 10:16 AM. CLINICAL HISTORY: Bilateral leg swelling. Knee pain. History of DVT. COMPARISON: None. TECHNIQUE: Real-time sonographic vascular imaging was performed by the senior analyst programmer through the lower extremities utilizing both color-flow and Doppler spectral analysis. Multiple public health representative static images were saved for review. FINDINGS: Right: Common Femoral Vein (CFV): Normal. CFV-GSV Junction: Normal. Profunda Femoral Vein (PFV): Normal. Femoral Vein (FV) Prox: Normal. Femoral Vein (FV) Mid: Normal. Femoral Vein (FV) Dist: Normal. Popliteal Vein: Normal. Posterior Tibial Veins: The more anteriorly located posterior tibial vein demonstrates narrowing in the midportion with some evidence of partial flow suggesting chronic nonocclusive thrombus. Posterior tibial veins are otherwise patent. Peroneal Veins: Normal. Left: Common Femoral Vein (CFV): Normal. CFV-GSV Junction: Normal. Profunda Femoral Vein (PFV): Normal. Femoral Vein (FV) Prox: Normal. Femoral Vein (FV) Mid: Normal. Femoral Vein (FV) Dist: Normal. Popliteal Vein: Unable to evaluate due to patient intolerance to movement for positioning secondary to pain. Posterior Tibial Veins: Normal. Peroneal Veins: Limited visualization. Other: Bilateral predominantly anechoic fluid collections are seen at the anterior knee soft tissues measuring 7.2 x 1.9 x 6.3 cm on the right and 6.9 x 2.4 x 7.8 cm on the left. Some mild internal septations are noted. IMPRESSION: 1. 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 2. Unable to image the left popliteal vein due to patient intolerance with positioning secondary to pain. 3. Otherwise patent deep veins of the lower extremities. 4. Bilateral fluid collections in the anterior knee soft tissues. Clinical correlation recommended. RADIA
[2019-12-07] MEDS: oxyCODONE 5 MG TABLET PO PRN (13:47)
[2019-12-07] MEDS: SODIUM CHLORIDE FLUSH 0.9% 10 ML SYRINGE IVP PRN (17:20)
[2019-12-07] MEDS: polyethylene glycoL 3350 17 GM PACKET PO SCH (17:45)
[2019-12-07] MEDS ORDERED: VANCOMYCIN INJ 1.5 GM in SODIUM CHLORIDE 0.9% 500 ML IV SCH (22:00)
[2019-12-08] MEDS: LACTATED RINGERS 1,000 ML IV SCH (01:18)
[2019-12-08] MEDS: SODIUM CHLORIDE FLUSH 0.9% 10 ML SYRINGE IVP SCH ×4 (01:20→23:50)
[2019-12-08 04:56] LABS: BASOPHILS % (AUTO) 0.2 %; LYMPHOCYTES # (AUTO) 0.9 10^3/uL (1.5-3.5); MEAN CORPUSCULAR HEMOGLOBIN 30.1 pg (27.0-31.0); MEAN CORPUSCULAR HGB CONC 33.2 g/dL (32.0-36.0); MEAN CORPUSCULAR VOLUME 90.7 fL (80.0-94.0); MEAN PLATELET VOLUME 9.4 fL (7.4-11.4); MONOCYTES # (AUTO) 0.6 10^3/uL (0.0-1.0); MONOCYTES % (AUTO) 4.6 %; NEUTROPHILS # (AUTO) 10.9 10^3/uL (1.5-6.6); NEUTROPHILS % (AUTO) 87.5 %; PLT - PLATELET COUNT 285 10^3/uL (130-450); RED BLOOD COUNT 3.65 10^6/uL (4.70-6.10); RED CELL DISTRIBUTION WIDTH 12.4 % (12.0-15.0); WHITE BLOOD COUNT 12.5 x10^3/uL (4.8-10.8)
[2019-12-08 05:08] LABS: CALCIUM 8.3 mg/dL (8.5-10.3); CREATININE 1.2 mg/dL (0.6-1.2)
[2019-12-08] MEDS: HYDROmorphone 1 MG/ML SYRINGE IVP PRN ×6 (06:17→23:53)
[2019-12-08] MEDS: SODIUM CHLORIDE FLUSH 0.9% 10 ML SYRINGE IVP PRN ×2 (07:09→23:53)
[2019-12-08] MEDS: lisinopriL 20 MG TABLET PO SCH (08:12)
[2019-12-08] MEDS: oxyCODONE 5 MG TABLET PO PRN ×2 (08:12→12:01)
[2019-12-08] MEDS: polyethylene glycoL 3350 17 GM PACKET PO SCH (08:13)
[2019-12-08] MEDS: amLODIPine 5 MG TABLET PO SCH (08:13)
[2019-12-08] MEDS: SENNA 8.6 MG TABLET PO SCH (08:13)
[2019-12-08] MEDS: ASPIRIN CHEW 81 MG TABLET PO SCH (08:13)
[2019-12-08] MEDS: DOCUSATE SODIUM 250 MG CAPSULE PO SCH (08:13)
[2019-12-08] MEDS: CEFEPIME 2 GM in SODIUM CHLORIDE 0.9% MINIBAG 100 ML IV SCH ×2 (08:13→20:28)
[2019-12-08] MEDS: methylPREDNISolone SUCCINATE 40 MG/ML VIAL IVP SCH (08:14)
[2019-12-08] MEDS ORDERED: ABIRATERONE ACETATE 1000 MG PO SCH (09:00)
[2019-12-08 10:31] LABS: VANCOMYCIN,TROUGH 16.5 ug/mL (10.0-20.0)
--- NOTE | 2019-12-08 11:09 | PHARMACY PROGRESS NOTE ---
- Therapy Status Vancomycin regimen day #: 2 Therapy status: Awaiting steady state Basis for treatment: Empirical Treatment indication: sepsis , septic arthritis of knee Trough goal: 15-20 Concurrent antibiotics: cefepime - KRISTEN Risk Risk level for Acute Kidney Injury: Moderate Acute Kidney Injury risk factors: Goal trough >15, Chronic baseline hypertens ion, Acute hypotensive event, Sepsis - Monitoring and Recommendation Clinical response to treatment: I&O Previous 24 hours 12/06/19 12/07/19 12/08/19 22:59 23:59 23:59 Intake Total 1286.667 Output Total 1000 Balance 286.667 Lab Results 12/08/19 12/07/19 12/07/19 04:49 03:21 00:21 ESR 35 H BUN 18 8 Creatinine 1.2 0.7 Estimated GFR (MDRD) 60 L 112 Vancomycin Monitoring 12/08/19 10:11 Vancomycin Trough 16.5 Cultures 12/07/19 01:09 Blood - Right Hand Blood Culture - Preliminary NO GROWTH AFTER 1 DAY 12/07/19 00:52 Blood - Left Hand Blood Culture - Preliminary NO GROWTH AFTER 1 DAY 12/07/19 10:35 Synovial Fluid Body Fluid Culture - Preliminary 12/07/19 04:15 Knee - Right Gram Stain - Final Monitoring plan: Daily serum creatinine Next trough due prior to maintenance dose #: 4 Next trough due (date/time): 12/08 at 2130 Areas for additional monitoring: IV to PO when appropriate, Therapy de- escalation based on culture results, Acute Kidney Injury Pharmacy recommendation: Continue current regime (SCr elevated from yesterday- per global rph (advanced PK dosing)- prev dosing regimen may lead to supratherapeutic level (25+), given renal status- dose readjusted- will draw level to ensure therapeutic range)
[2019-12-08] MEDS: VANCOMYCIN INJ 1.25 GM in SODIUM CHLORIDE 0.9% 250 ML IV SCH ×2 (11:19→21:44)
--- NOTE | 2019-12-08 12:18 | PROVIDER PROGRESS NOTE ---
Subjective - Prog Note Date Prog Note Date: 12/08/19 Prog Note Time: 12:15 - Subjective Pt reports feeling: Improved (Much less bilateral knee pain today. Has better knee motion without pain) Objective - Vital Signs/Intake & Output Vital Signs: Vital Signs x48h Temp Pulse Pulse Resp BP Pulse Ox 12/08/19 11:46 36.6 C 88 16 138/86 H 96 12/08/19 08:22 36.8 C 86 20 131/76 H 94 12/08/19 08:05 36.8 C 94 18 95 12/08/19 04:52 36.5 C 84 16 152/88 H 96 Intake & Output: Intake & Output 12/05/19 12/06/19 12/07/19 12/08/19 22:59 22:59 23:59 23:59 Intake Total 1286.667 Output Total 1000 Balance 286.667 - Lab Results Fish Bones: 12/08/19 04:49 12/08/19 04:49 Other Labs: Lab Results x24hrs 12/08/19 12/08/19 12/08/19 Range/Units 10:11 04:49 04:49 WBC 12.5 H (4.8-10.8) x10^3/uL RBC 3.65 L (4.70-6.10) 10^6/uL Hgb 11.0 L (14.0-18.0) g/dL Hct 33.1 L (42.0-52.0) % MCV 90.7 (80.0-94.0) fL MCH 30.1 (27.0-31.0) pg MCHC 33.2 (32.0-36.0) g/dL RDW 12.4 (12.0-15.0) % Plt Count 285 (130-450) 10^3/uL MPV 9.4 (7.4-11.4) fL Neut # (Auto) 10.9 H (1.5-6.6) 10^3/uL Lymph # (Auto) 0.9 L (1.5-3.5) 10^3/uL [place] # (Auto) 0.6 (0.0-1.0) 10^3/uL Eos # (Auto) 0.0 (0.0-0.7) 10^3/uL Baso # (Auto) 0.0 (0.0-0.1) 10^3/uL Absolute Nucleated RBC 0.00 x10^3/uL Nucleated RBC % 0.0 /100WBC Sodium 136 (135-145) mmol/L Potassium 3.7 (3.5-5.0) mmol/L Chloride 104 (101-111) mmol/L Carbon Dioxide 25 (21-32) mmol/L Anion Gap 7.0 (6-13) BUN 18 (6-20) mg/dL Creatinine 1.2 (0.6-1.2) mg/dL Estimated GFR (MDRD) 60 L (>89) Glucose 188 H (70-100) mg/dL Calcium 8.3 L (8.5-10.3) mg/dL Phosphorus 2.0 L (2.5-4.6) mg/dL Magnesium 2.0 (1.7-2.8) mg/dL Fluid Source Fluid Color Fluid Clarity Fluid WBC /mm^3 Fluid RBC /mm^3 Fluid Neutrophils % % Fluid Lymphocytes % Fluid Monocytes % % Fld Mesothelial Cell % % Last Dose Date UNK Last Dose Time UNK Vancomycin Trough 16.5 (10.0-20.0) ug/mL 12/07/19 Range/Units 10:35 WBC (4.8-10.8) x10^3/uL RBC (4.70-6.10) 10^6/uL Hgb (14.0-18.0) g/dL Hct (42.0-52.0) % MCV (80.0-94.0) fL MCH (27.0-31.0) pg MCHC (32.0-36.0) g/dL RDW (12.0-15.0) % Plt Count (130-450) 10^3/uL MPV (7.4-11.4) fL Neut # (Auto) (1.5-6.6) 10^3/uL Lymph # (Auto) (1.5-3.5) 10^3/uL [place] # (Auto) (0.0-1.0) 10^3/uL Eos # (Auto) (0.0-0.7) 10^3/uL Baso # (Auto) (0.0-0.1) 10^3/uL Absolute Nucleated RBC x10^3/uL Nucleated RBC % /100WBC Sodium (135-145) mmol/L Potassium (3.5-5.0) mmol/L Chloride (101-111) mmol/L Carbon Dioxide (21-32) mmol/L Anion Gap (6-13) BUN (6-20) mg/dL Creatinine (0.6-1.2) mg/dL Estimated GFR (MDRD) (>89) Glucose (70-100) mg/dL Calcium (8.5-10.3) mg/dL Phosphorus (2.5-4.6) mg/dL Magnesium (1.7-2.8) mg/dL Fluid Source SYNOVIAL Fluid Color YELLOW Fluid Clarity CLOUDY Fluid WBC 71186 /mm^3 Fluid RBC 99870 /mm^3 Fluid Neutrophils % 93 % Fluid Lymphocytes % 4 Fluid Monocytes % 4 % Fld Mesothelial Cell % 0 % Last Dose Date Last Dose Time Vancomycin Trough (10.0-20.0) ug/mL - Other Results/Comments Other Results/Comments: EXAM: Bilateral knees - Partial reaccumulation of effusion. Mild warmth and redness bilaterally. ROM -1040 degrees. N/V ok distally Repaet Right knee aspiration showed WBC 33, 000 with left shift. No crystals or organisms seen. C&S x one day - no growth. Sepsis Event Note (H) - Evaluation Current Stage of Sepsis: Sepsis Possible source of Sepsis: positive: Bone/Joint - Sepsis Criteria Sepsis Criteria: Recorded Temperature greater than 38.3C or Less than 36C, Recorded Heart Rate greater than 90 bpm, WBC count greater than 12,000 or less than 4000, Hepatic: Bilirubin greater than 2mg/dl Assessment/Plan - Problem List (1) Knee pain Impression: Improved. PLAN: Mobilize as tolerated. Await C&S results. Qualifiers: Chronicity: acute Laterality: bilateral Qualified Code(s): M25.561 - Pain in right knee; M25.562 - Pain in left knee
--- NOTE | 2019-12-08 12:34 | PROVIDER PROGRESS NOTE ---
Subjective - Prog Note Date Prog Note Date: 12/08/19 Prog Note Time: 12:34 - Subjective Pt reports feeling: Improved Subjective: Jose Angel complains of some low abdominal fullness. He denies any new symptoms and is happy with is pain relief. He notes that the ROM in his right knee is greatly improved. Current Medications - Current Medications Current Medications: Active Medications: Acetaminophen (Tylenol) 650 mg PO Q4HR PRN Amlodipine Besylate (Norvasc) 5 mg PO DAILY [facility] Aspirin (St Chan Aspirin) 81 mg PO DAILY [facility] Docusate Sodium (Colace 250mg Capsule) 250 - 500 mg PO DAILY [facility] Hydromorphone HCl (Dilaudid Inj Syringe) 1 mg IVP Q2H PRN Cefepime HCl 2 gm/ Sodium (Chloride) 100 mls @ 200 mls/hr IV BID [facility] Vancomycin HCl 1.25 gm/ Sodium (Chloride) 250 mls @ 167 mls/hr IV Q12H [facility] Lisinopril (Zestril) 20 mg PO DAILY [facility] Ondansetron HCl (Zofran Inj) 4 mg IVP Q6HR PRN Oxycodone HCl (Roxicodone) 5 mg PO Q4HR PRN Patient Own Med ( Abiraterone Acetate [Zytiga] 1,000 Mg) 4 each PO DAILY [facility] Polyethylene Glycol (Miralax) 17 gm PO DAILY [facility] Prednisone (Deltasone) 20 mg PO DAILYWM [facility] Senna (Senokot) 8.6 - 17.2 mg PO DAILY [facility] Sodium Phosphate (K-Phos Neutral) 250 mg PO TIDWM [facility] Xarelto 20mg PO daily, 1st dose resumed tonight HOME meds: Abiraterone Acetate [Zytiga] 1,000 mg PO DAILY 12/01/19 Aspirin 81 mg PO DAILY 12/01/19 Oxycodone HCl [Oxycontin] 30 mg PO DAILY PRN 12/01/19 Rivaroxaban [Xarelto] 20 mg PO DAILY 12/01/19 oxyCODONE [Roxicodone] 30 mg PO QID PRN 12/01/19 Objective - Vital Signs/Intake & Output Reviewed Vital Signs: Yes Vital Signs: Vital Signs x48h Temp Pulse Pulse Resp BP Pulse Ox 12/08/19 11:46 36.6 C 88 16 138/86 H 96 12/08/19 08:22 36.8 C 86 20 131/76 H 94 12/08/19 08:05 36.8 C 94 18 95 12/08/19 04:52 36.5 C 84 16 152/88 H 96 Intake & Output: Intake & Output 12/05/19 12/06/19 12/07/19 12/08/19 22:59 22:59 23:59 23:59 Intake Total 1286.667 Output Total 1000 Balance 286.667 - Objective General Appearance: positive: No acute distress, Alert Eyes Bilateral: positive: PERRL ENT: positive: Pharynx nml, No signs of dehydration Neck: positive: Thyroid nml, No JVD, Trachea midline Respiratory: positive: Chest non-tender, No respiratory distress, Breath sounds nml Cardiovascular: positive: Regular rate & rhythm, No gallop Peripheral Pulses: 1+ Radial (R), 1+ Radial (L) Abdomen: positive: Non-tender, Nml bowel sounds Back: positive: Nml inspection Skin: positive: Color nml, No rash, Warm, Dry Extremities: positive: Pedal edema, Joint swelling (right knee greater than left) Neurologic/Psychiatric: positive: Oriented x3, CN's nml (2-12), Motor nml, Sensation nml, Mood/affect nml Reflexes: Bicep (R): 3+, Bicep (L): 3+ - Lab Results Fish Bones: 12/08/19 04:49 12/08/19 04:49 Other Labs: Lab Results x24hrs 12/08/19 12/08/19 12/08/19 Range/Units 10:11 04:49 04:49 WBC 12.5 H (4.8-10.8) x10^3/uL RBC 3.65 L (4.70-6.10) 10^6/uL Hgb 11.0 L (14.0-18.0) g/dL Hct 33.1 L (42.0-52.0) % MCV 90.7 (80.0-94.0) fL MCH 30.1 (27.0-31.0) pg MCHC 33.2 (32.0-36.0) g/dL RDW 12.4 (12.0-15.0) % Plt Count 285 (130-450) 10^3/uL MPV 9.4 (7.4-11.4) fL Neut # (Auto) 10.9 H (1.5-6.6) 10^3/uL Lymph # (Auto) 0.9 L (1.5-3.5) 10^3/uL Hughes # (Auto) 0.6 (0.0-1.0) 10^3/uL Eos # (Auto) 0.0 (0.0-0.7) 10^3/uL Baso # (Auto) 0.0 (0.0-0.1) 10^3/uL Absolute Nucleated RBC 0.00 x10^3/uL Nucleated RBC % 0.0 /100WBC Sodium 136 (135-145) mmol/L Potassium 3.7 (3.5-5.0) mmol/L Chloride 104 (101-111) mmol/L Carbon Dioxide 25 (21-32) mmol/L Anion Gap 7.0 (6-13) BUN 18 (6-20) mg/dL Creatinine 1.2 (0.6-1.2) mg/dL Estimated GFR (MDRD) 60 L (>89) Glucose 188 H (70-100) mg/dL Calcium 8.3 L (8.5-10.3) mg/dL Phosphorus 2.0 L (2.5-4.6) mg/dL Magnesium 2.0 (1.7-2.8) mg/dL Last Dose Date UNK Last Dose Time UNK Vancomycin Trough 16.5 (10.0-20.0) ug/mL ABX Reporting Has patient been on IV antibiotics over the past 48 hours?: Yes Sepsis Event Note (H) - Evaluation Current Stage of Sepsis: Resolved - Sepsis Criteria Sepsis Criteria: Hepatic: Bilirubin greater than 2mg/dl Assessment/Plan - Problem List (1) Septic arthritis of knee, bilateral Impression: -Suspect bilateral joint swelling and pain could be secondary to septic arthritis -Considering Zytiga (prostate chemo) med lists joint swelling as a side effect -Called Geovany Lott MD (primary oncologist) to discuss potential of bilateral knee effusions -Dr. Lott has not had other patients with this side effect, but could see if Zytiga was interrupted, then resumed without steroid, this could be the culprit -Synovial fluid obtained in the emergency department of the right knee, and repeated by Dr. Haywood on 12/06 -Joint fluid cultures have grown no pathogens, elevated WBCs -Patient is immunocompromised -X-ray of the right knee showed no acute fracture or dislocation -Mild osteoarthritis and soft tissue swelling over the suprapatellar region -Continues on vancomycin and cefepime until septic joint is ruled out -Patient is clinically improved today, more ROM to right knee, less pain -Tapering IV steroids to oral prednisone of 20 mg in the AM -Continue routine labs, ESR, CR & resumed prostate oral chemo agent as suggested by Oncology Constipation -Patient more symptomatic today -Taking mirralax, senna, now adding lactulose -Monitor for results, encourage ambulation Hypokalemia -Serum potassium was low at 2.7, now normalized -Routine labs Hyponatremia -Serum sodium was low at 131, now normal at 136 -Routine labs Hypertension -Initially, patient had light B/Ps, now home meds have been resumed -Continues on Norvasc and Lisinopril/HCTZ -Continue to monitor vital sigsn Prostate cancer metastatic to bone -Currently under treatment per Oncology Dr. Geovany Lott -prostate cancer with metastasis to the -Zytiga was resumed today with a gentle steroid taper -Continue outpatient follow-up Hx of deep venous thrombosis -DVT in the right upper extremity for which he takes Xarelto -Patient notes he was throwing a baseball with his grandson, and suddenly felt a rip in his bicep
[2019-12-08] MEDS: NEUTRA-PHOS 250 MG TABLET PO SCH (19:17)
[2019-12-08] MEDS: RIVAROXABAN 10 MG TABLET PO SCH (19:17)
[2019-12-09] MEDS ORDERED: HYDROmorphone 2 MG/ML VIAL IVP STA (00:37)
[2019-12-09] MEDS: PANTOPRAZOLE 40 MG VIAL IVP SCH ×2 (00:53→06:00)
[2019-12-09] MEDS: LACTATED RINGERS 1,000 ML IV SCH ×2 (00:53→13:01)
[2019-12-09] MEDS: SODIUM CHLORIDE FLUSH 0.9% 10 ML SYRINGE IVP PRN (00:54)
[2019-12-09 01:02] LABS: BASOPHILS # (AUTO) 0.1 10^3/uL (0.0-0.1); BASOPHILS % (AUTO) 0.2 %; HGB - HEMOGLOBIN 12.3 g/dL (14.0-18.0); LYMPHOCYTES # (AUTO) 1.7 10^3/uL (1.5-3.5); LYMPHOCYTES % (AUTO) 7.1 %; MEAN CORPUSCULAR HEMOGLOBIN 30.5 pg (27.0-31.0); MEAN CORPUSCULAR VOLUME 92.6 fL (80.0-94.0); MEAN PLATELET VOLUME 9.8 fL (7.4-11.4); MONOCYTES # (AUTO) 1.8 10^3/uL (0.0-1.0); MONOCYTES % (AUTO) 7.7 %; NEUTROPHILS # (AUTO) 19.6 10^3/uL (1.5-6.6); NEUTROPHILS % (AUTO) 83.9 %; PLT - PLATELET COUNT 451 10^3/uL (130-450); RED BLOOD COUNT 4.03 10^6/uL (4.70-6.10); RED CELL DISTRIBUTION WIDTH 12.6 % (12.0-15.0); WHITE BLOOD COUNT 23.4 x10^3/uL (4.8-10.8)
[2019-12-09] MEDS ORDERED: metroNIDAZOLE 500 MG/100 ML 500 MG/100 ML BAG IV SCH (01:12)
[2019-12-09 01:19] LABS: ALBUMIN 3.6 g/dL (3.2-5.5); BILIRUBIN,DIRECT 0.2 mg/dL (0.1-0.5); BILIRUBIN,TOTAL 1.2 mg/dL (0.2-1.0); CALCIUM 8.8 mg/dL (8.5-10.3); CREATININE 1.3 mg/dL (0.6-1.2); MAGNESIUM 2.3 mg/dL (1.7-2.8); PHOSPHORUS 1.6 mg/dL (2.5-4.6); TOTAL PROTEIN 7.7 g/dL (6.7-8.2)
[2019-12-09] MEDS ORDERED: POTASSIUM PHOSPHATE 21 MMOL in SODIUM CHLORIDE 0.9% 250 ML IV ONE (01:23)
[2019-12-09] MEDS ORDERED: IOVERSOL 320 100 ML VIAL IVP ONE ×2 (01:42→02:12)
--- NOTE | 2019-12-09 03:14 | CT Report ---
Reason: Severe abdominal pain. History of cholecystitis. Procedure Date: 12/09/2019 Accession Number: [id number] / [id number] Procedure: CT - Abdomen/Pelvis W CPT Code: Final Report FULL RESULT: EXAM: CT ABDOMEN AND PELVIS EXAM DATE:12/09/2019 02:14 AM CLINICAL HISTORY: Severe abdominal pain. History of cholecystitis. COMPARISONS: ABDOMEN/PELVIS W/ 11/30/2019 8:58 PM ABDOMEN LIMITED 11/30/2019 9:53 PM. TECHNIQUE: Routine helical CT imaging was performed through the abdomen and pelvis with OPTIRAY 320 IV contrast. Oral contrast: No. Reconstructions: Coronal and sagittal. In accordance with CT protocol optimization, one or more of the following dose reduction techniques were utilized for this exam: automated exposure control, adjustment of mA and/or KV based on patient size, or use of iterative reconstructive technique. FINDINGS: Lung Bases: Subsegmental atelectasis versus scarring at the lung bases. No pleural effusion. Liver: 3 low-density lesions; the largest measures 1.2 cm at the posterior aspect of the right lobe segment 7. Gallbladder/Bile Ducts: Status post cholecystectomy. No bile duct dilatation. Spleen: Unremarkable. Pancreas: Unremarkable. Adrenal Glands: Unremarkable. Kidneys: Focal cortical thinning at the posterior aspect of the interpolar region of the left kidney appears similar. Otherwise both kidneys are unremarkable. Peritoneal Cavity/Bowel: The bowel is normal in caliber and contour. No free fluid, free air or lymphadenopathy. The appendix is normal. Pelvic Organs: Unremarkable. The bladder and visualized pelvic organs appear normal. Vasculature: Unremarkable. Bones: Multiple sclerotic lesions throughout the visualized bones. Other: None. IMPRESSION: 1. No acute process seen in the abdomen or pelvis. 2. Multiple sclerotic bone metastases. 3. Stable low-density liver lesions; the largest measures 1.2 cm. These are too small to accurately characterize by CT. 4. Status post cholecystectomy. RADIA
[2019-12-09 05:47] LABS: BASOPHILS % (AUTO) 0.2 %; HGB - HEMOGLOBIN 10.3 g/dL (14.0-18.0); LYMPHOCYTES # (AUTO) 0.9 10^3/uL (1.5-3.5); LYMPHOCYTES % (AUTO) 5.2 %; MEAN CORPUSCULAR HEMOGLOBIN 31.1 pg (27.0-31.0); MEAN CORPUSCULAR HGB CONC 33.8 g/dL (32.0-36.0); MEAN CORPUSCULAR VOLUME 92.1 fL (80.0-94.0); MEAN PLATELET VOLUME 9.8 fL (7.4-11.4); MONOCYTES # (AUTO) 1.2 10^3/uL (0.0-1.0); MONOCYTES % (AUTO) 6.7 %; NEUTROPHILS # (AUTO) 15.5 10^3/uL (1.5-6.6); NEUTROPHILS % (AUTO) 87.2 %; PLT - PLATELET COUNT 354 10^3/uL (130-450); RED BLOOD COUNT 3.31 10^6/uL (4.70-6.10); RED CELL DISTRIBUTION WIDTH 12.6 % (12.0-15.0); WHITE BLOOD COUNT 17.8 x10^3/uL (4.8-10.8)
[2019-12-09] MEDS: PATIENT OWN MED PO SCH ×2 (05:54→06:01)
[2019-12-09] MEDS: HYDROmorphone 1 MG/ML SYRINGE IVP PRN ×4 (05:57→16:28)
[2019-12-09 06:02] LABS: CALCIUM 8.2 mg/dL (8.5-10.3); CREATININE 1.2 mg/dL (0.6-1.2); MAGNESIUM 2.2 mg/dL (1.7-2.8); PHOSPHORUS 2.4 mg/dL (2.5-4.6)
[2019-12-09] MEDS: oxyCODONE 5 MG TABLET PO PRN (06:58)
[2019-12-09] MEDS: DOCUSATE SODIUM 250 MG CAPSULE PO SCH (08:27)
[2019-12-09] MEDS: NEUTRA-PHOS 250 MG TABLET PO SCH ×2 (08:27→11:14)
[2019-12-09] MEDS: SENNA 8.6 MG TABLET PO SCH (08:28)
[2019-12-09] MEDS: polyethylene glycoL 3350 17 GM PACKET PO SCH (08:28)
[2019-12-09] MEDS: amLODIPine 5 MG TABLET PO SCH (08:28)
[2019-12-09] MEDS: lisinopriL 20 MG TABLET PO SCH (08:28)
[2019-12-09] MEDS: ASPIRIN CHEW 81 MG TABLET PO SCH (08:28)
[2019-12-09] MEDS: predniSONE 20 MG TABLET PO SCH (08:28)
[2019-12-09] MEDS: SODIUM CHLORIDE FLUSH 0.9% 10 ML SYRINGE IVP SCH ×2 (08:29→16:30)
[2019-12-09] MEDS: CEFEPIME 2 GM in SODIUM CHLORIDE 0.9% MINIBAG 100 ML IV SCH ×2 (08:41→21:32)
[2019-12-09] MEDS ORDERED: NON FORMULARY MED (Rivaroxaban [Xarelto] 20 MG) PO SCH (09:00)
[2019-12-09] MEDS ORDERED: CALCIUM CARBONATE CHEW 500 MG TABLET PO PRN (10:12)
[2019-12-09] MEDS: VANCOMYCIN INJ 1.25 GM in SODIUM CHLORIDE 0.9% 250 ML IV SCH ×2 (10:16→22:16)
--- NOTE | 2019-12-09 11:21 | PROVIDER PROGRESS NOTE ---
Subjective - Prog Note Date Prog Note Date: 12/09/19 - Subjective Pt reports feeling: Improved Subjective: pt report he had strong abdominal pain, located upper epigastria area, at last night. now he feel better but still mild pain. pt report his gallbladder removal about one weeks. he report he ate big cheese after dinner on last night. After he ate cheese about 20 minutes, he began to have upper gastric abdominal pain. CT of abdomen reveals unremarkable on acute findings. pt is beginning clear diet now. pt report he felt much better on his bilateral knee. Mild edema is on right knee, otherwise it is unremarkable. pt report he had a good ROM in both knee, no pain. There is no warmth or erythema on both knee. Current Medications - Current Medications Current Medications: Active Medications Acetaminophen (Tylenol) 650 mg PO Q4HR PRN PRN Reason: Pain 1 to 4 Amlodipine Besylate (Norvasc) 5 mg PO DAILY [facility] Last Admin: 12/09/19 08:28 Dose: 5 mg Aspirin (St Chan Aspirin) 81 mg PO DAILY [facility] Last Admin: 12/09/19 08:28 Dose: 81 mg Calcium Carbonate/Glycine (Tums) 500 mg PO BID PRN PRN Reason: Heartburn Docusate Sodium (Colace 250mg Capsule) 250 - 500 mg PO DAILY [facility] Last Admin: 12/09/19 08:27 Dose: 250 mg Hydromorphone HCl (Dilaudid Inj Syringe) 1 mg IVP Q2H PRN PRN Reason: PAIN Last Admin: 12/09/19 11:15 Dose: 1 mg Cefepime HCl 2 gm/ Sodium (Chloride) 100 mls @ 200 mls/hr IV BID [facility] Last Infusion: 12/09/19 10:22 Dose: Infused Vancomycin HCl 1.25 gm/ Sodium (Chloride) 250 mls @ 167 mls/hr IV Q12H [facility] Last Admin: 12/09/19 10:16 Dose: 167 mls/hr Lactated Ringer's (Lr) 1,000 mls @ 100 mls/hr IV .Q10H [facility] Stop: 12/09/19 20:59 Last Infusion: 12/09/19 03:24 Dose: 100 mls/hr Lisinopril (Zestril) 20 mg PO DAILY [facility] Last Admin: 12/09/19 08:28 Dose: 20 mg Ondansetron HCl (Zofran Inj) 4 mg IVP Q6HR PRN PRN Reason: Nausea / Vomiting Last Admin: 12/09/19 07:11 Dose: 4 mg Oxycodone HCl (Roxicodone) 5 mg PO Q4HR PRN PRN Reason: Pain 5 to 7 Last Admin: 12/09/19 06:58 Dose: 5 mg Pantoprazole Sodium (Protonix) 40 mg IVP QDAC [facility] Last Admin: 12/09/19 06:00 Dose: 40 mg Patient Own Medication (Patient Own Medication) 4 each PO QDAC [facility] Last Admin: 12/09/19 06:01 Dose: 4 each Polyethylene Glycol (Miralax) 17 gm PO DAILY [facility] Last Admin: 12/09/19 08:28 Dose: 17 gm Prednisone (Deltasone) 20 mg PO DAILYWM [facility] Last Admin: 12/09/19 08:28 Dose: 20 mg Rivaroxaban (Xarelto) 20 mg PO QDDINNER [facility] Last Admin: 12/08/19 19:17 Dose: 20 mg Senna (Senokot) 8.6 - 17.2 mg PO DAILY [facility] Last Admin: 12/09/19 08:28 Dose: 8.6 mg Sodium Chloride (Normal Saline Flush 0.9%) 10 ml IVP PRN PRN PRN Reason: NEEDED PER PROVIDER ORDERS Last Admin: 12/09/19 00:54 Dose: 10 ml Sodium Chloride (Normal Saline Flush 0.9%) 10 ml IVP 0100,0900,1700 [facility] Last Admin: 12/09/19 08:29 Dose: 10 ml Sodium Phosphate (K-Phos Neutral) 250 mg PO TIDWM [facility] Stop: 12/09/19 12:01 Last Admin: 12/09/19 11:14 Dose: 250 mg Abiraterone Acetate [Zytiga] 1,000 mg PO DAILY 12/01/19 Aspirin 81 mg PO DAILY 12/01/19 Oxycodone HCl [Oxycontin] 30 mg PO DAILY PRN 12/01/19 Rivaroxaban [Xarelto] 20 mg PO DAILY 12/01/19 oxyCODONE [Roxicodone] 30 mg PO QID PRN 12/01/19 Objective - Vital Signs/Intake & Output Reviewed Vital Signs: Yes Vital Signs: Vital Signs x48h Temp Pulse Resp BP Pulse Ox 12/09/19 07:54 36.6 C 78 18 123/79 96 12/09/19 04:45 36.6 C 86 16 132/83 H 99 Intake & Output: Intake & Output 12/06/19 12/07/19 12/08/19 12/09/19 22:59 23:59 23:59 23:59 Intake Total 2636.667 608.667 Output Total 2375 375 Balance 261.667 233.667 - Objective General Appearance: positive: No acute distress, Alert. negative: Lethargic Eyes Bilateral: positive: Normal inspection, PERRL, EOMI, No lid inflammation ENT: positive: ENT inspection nml, Pharynx nml, No signs of dehydration. negative: Purulent nasal drainage Neck: positive: Nml inspection, Thyroid nml, No JVD, Trachea midline. negative: Thyromegaly, Lymphadenopathy (R), Lymphadenopathy (L), Stiff neck, Tracheal deviation Respiratory: positive: Chest non-tender, No respiratory distress, Breath sounds nml. negative: Wheezes, Rales, Rhonchi Cardiovascular: positive: Regular rate & rhythm, No murmur, No gallop. negative: Irregularly irregular, Extrasystoles, Tachycardia, Bradycardia, JVD present, Systolic murmur, Diastolic murmur Peripheral Pulses: 2+ Radial (R), 2+ Radial (L), 2+ Dorsalis pedis (R), 2+ Dorsalis pedis (L) Abdomen: positive: Non-tender, No organomegaly, Nml bowel sounds, No distention. negative: Tenderness, Guarding, Rebound Back: positive: Nml inspection. negative: CVA tenderness (R), CVA tenderness (L) Skin: positive: Color nml, No rash, Warm, Dry. negative: Cyanosis, Diaphoresis, Pallor Extremities: positive: Non-tender, Full ROM, Nml appearance, No pedal edema. negative: Pedal edema, Calf tenderness, Ernesto's sign/cords Neurologic/Psychiatric: positive: Oriented x3, Sensation nml, Mood/affect nml. negative: Weakness, Sensory loss, Facial droop, Slurred/abnml speech, Depressed mood/affect - Lab Results Fish Bones: 12/09/19 05:38 12/09/19 05:38 Other Labs: Lab Results x24hrs 03/10/20 03/10/20 03/10/20 Range/Units 05:38 05:38 05:38 WBC 17.8 H (4.8-10.8) x10^3/uL RBC 3.31 L (4.70-6.10) 10^6/uL Hgb 10.3 L (14.0-18.0) g/dL Hct 30.5 L (42.0-52.0) % MCV 92.1 (80.0-94.0) fL MCH 31.1 H (27.0-31.0) pg MCHC 33.8 (32.0-36.0) g/dL RDW 12.6 (12.0-15.0) % Plt Count 354 (130-450) 10^3/uL MPV 9.8 (7.4-11.4) fL Neut # (Auto) 15.5 H (1.5-6.6) 10^3/uL Lymph # (Auto) 0.9 L (1.5-3.5) 10^3/uL Hettinger # (Auto) 1.2 H (0.0-1.0) 10^3/uL Eos # (Auto) 0.0 (0.0-0.7) 10^3/uL Baso # (Auto) 0.0 (0.0-0.1) 10^3/uL Absolute Nucleated RBC 0.00 x10^3/uL Nucleated RBC % 0.0 /100WBC Sodium 137 (135-145) mmol/L Potassium 3.8 (3.5-5.0) mmol/L Chloride 105 (101-111) mmol/L Carbon Dioxide 24 (21-32) mmol/L Anion Gap 8.0 (6-13) BUN 27 H (6-20) mg/dL Creatinine 1.2 (0.6-1.2) mg/dL Estimated GFR (MDRD) 60 L (>89) Glucose 215 H (70-100) mg/dL Lactic Acid (0.5-2.2) mmol/L Calcium 8.2 L (8.5-10.3) mg/dL Phosphorus 2.4 L (2.5-4.6) mg/dL Magnesium 2.2 (1.7-2.8) mg/dL Total Bilirubin (0.2-1.0) mg/dL Direct Bilirubin (0.1-0.5) mg/dL AST (10-42) IU/L ALT (10-60) IU/L Alkaline Phosphatase (42-121) IU/L Troponin I High Sens 7.5 (2.3-19.7) ng/L Total Protein (6.7-8.2) g/dL Albumin (3.2-5.5) g/dL Globulin (2.1-4.2) g/dL Lipase (22-51) U/L 12/09/19 12/09/19 12/09/19 Range/Units 00:56 00:56 00:56 WBC 23.4 H (4.8-10.8) x10^3/uL RBC 4.03 L (4.70-6.10) 10^6/uL Hgb 12.3 L (14.0-18.0) g/dL Hct 37.3 L (42.0-52.0) % MCV 92.6 (80.0-94.0) fL MCH 30.5 (27.0-31.0) pg MCHC 33.0 (32.0-36.0) g/dL RDW 12.6 (12.0-15.0) % Plt Count 451 H (130-450) 10^3/uL MPV 9.8 (7.4-11.4) fL Neut # (Auto) 19.6 H (1.5-6.6) 10^3/uL Lymph # (Auto) 1.7 (1.5-3.5) 10^3/uL Hettinger # (Auto) 1.8 H (0.0-1.0) 10^3/uL Eos # (Auto) 0.0 (0.0-0.7) 10^3/uL Baso # (Auto) 0.1 (0.0-0.1) 10^3/uL Absolute Nucleated RBC 0.00 x10^3/uL Nucleated RBC % 0.0 /100WBC Sodium 138 (135-145) mmol/L Potassium 3.7 (3.5-5.0) mmol/L Chloride 102 (101-111) mmol/L Carbon Dioxide 24 (21-32) mmol/L Anion Gap 12.0 (6-13) BUN 28 H (6-20) mg/dL Creatinine 1.3 H (0.6-1.2) mg/dL Estimated GFR (MDRD) 55 L (>89) Glucose 197 H (70-100) mg/dL Lactic Acid 2.1 (0.5-2.2) mmol/L Calcium 8.8 (8.5-10.3) mg/dL Phosphorus 1.6 L (2.5-4.6) mg/dL Magnesium 2.3 (1.7-2.8) mg/dL Total Bilirubin 1.2 H (0.2-1.0) mg/dL Direct Bilirubin 0.2 (0.1-0.5) mg/dL AST 27 (10-42) IU/L ALT 25 (10-60) IU/L Alkaline Phosphatase 87 (42-121) IU/L Troponin I High Sens (2.3-19.7) ng/L Total Protein 7.7 (6.7-8.2) g/dL Albumin 3.6 (3.2-5.5) g/dL Globulin 4.1 (2.1-4.2) g/dL Lipase 18 L (22-51) U/L 12/09/19 Range/Units 00:56 WBC (4.8-10.8) x10^3/uL RBC (4.70-6.10) 10^6/uL Hgb (14.0-18.0) g/dL Hct (42.0-52.0) % MCV (80.0-94.0) fL MCH (27.0-31.0) pg MCHC (32.0-36.0) g/dL RDW (12.0-15.0) % Plt Count (130-450) 10^3/uL MPV (7.4-11.4) fL Neut # (Auto) (1.5-6.6) 10^3/uL Lymph # (Auto) (1.5-3.5) 10^3/uL Hettinger # (Auto) (0.0-1.0) 10^3/uL Eos # (Auto) (0.0-0.7) 10^3/uL Baso # (Auto) (0.0-0.1) 10^3/uL Absolute Nucleated RBC x10^3/uL Nucleated RBC % /100WBC Sodium (135-145) mmol/L Potassium (3.5-5.0) mmol/L Chloride (101-111) mmol/L Carbon Dioxide (21-32) mmol/L Anion Gap (6-13) BUN (6-20) mg/dL Creatinine (0.6-1.2) mg/dL Estimated GFR (MDRD) (>89) Glucose (70-100) mg/dL Lactic Acid (0.5-2.2) mmol/L Calcium (8.5-10.3) mg/dL Phosphorus (2.5-4.6) mg/dL Magnesium (1.7-2.8) mg/dL Total Bilirubin (0.2-1.0) mg/dL Direct Bilirubin (0.1-0.5) mg/dL AST (10-42) IU/L ALT (10-60) IU/L Alkaline Phosphatase (42-121) IU/L Troponin I High Sens 6.9 (2.3-19.7) ng/L Total Protein (6.7-8.2) g/dL Albumin (3.2-5.5) g/dL Globulin (2.1-4.2) g/dL Lipase (22-51) U/L ABX Reporting Has patient been on IV antibiotics over the past 48 hours?: Yes Sepsis Event Note (H) - Evaluation Current Stage of Sepsis: Resolved Possible source of Sepsis: positive: Bone/Joint - Sepsis Criteria Sepsis Criteria: Hepatic: Bilirubin greater than 2mg/dl Assessment/Plan - Problem List (1) Abdominal pain Impression: pt report he had strong upper gastric abdominal pain on last night after he ate cheese. pt is s/p cholecystectomy recently. CT of abdomen on last night reveals unremarkable on acute finding. discussed with pt about his dietary choice after he had cholecystectomy. continue Protonic, start on Tums PRN start on clear diet, advanced as pt tolerate continue IVF Septic arthritis of knee, bilateral Impression: pt report he had great improved on bilateral his knee. pt is controlled. there is erythema or warmth on both knee. There is a mild edema on right knee r epeated Synovial fluid culture and staining were negative for bacterial so far. blood culture was negative, also there is no crystal in synovial fluid. Patient is immunocompromised from recently chemotherapy. pt had fever, and swelling and pain on his bilateral knee before he was admitted. continue antibiotics. followup orthopedics pain control. encourage pt walk as tolerated Constipation stable/resolved. encourage pt walk, reduce opiates intake Hypokalemia resolved Hyponatremia resolved Hypertension stable, continue home meds Prostate cancer metastatic to bone -Currently under treatment per Oncology Dr. Geovany Lott, continue Zytiga with a gentle steroid taper per oncologist recommendation -Continue outpatient follow-up Hx of deep venous thrombosis pt has hx of DVT in the right upper extremity for which he takes Xarelto, continue Xarelto.
--- NOTE | 2019-12-09 13:02 | PROVIDER PROGRESS NOTE ---
Subjective - Prog Note Date Prog Note Date: 12/09/19 Prog Note Time: 12:59 - Subjective Pt reports feeling: Improved (Much less pain and better motion in knees. Up walking in room) Objective - Vital Signs/Intake & Output Vital Signs: Vital Signs x48h Temp Pulse Resp BP Pulse Ox 12/09/19 12:29 36.6 C 89 18 135/90 H 96 12/09/19 07:54 36.6 C 78 18 123/79 96 Intake & Output: Intake & Output 12/06/19 12/07/19 12/08/19 12/09/19 22:59 23:59 23:59 23:59 Intake Total 2636.667 1338.667 Output Total 2375 725 Balance 261.667 613.667 - Lab Results Fish Bones: 12/09/19 05:38 12/09/19 05:38 Other Labs: Lab Results x24hrs 12/09/19 12/09/19 12/09/19 Range/Units 05:38 05:38 05:38 WBC 17.8 H (4.8-10.8) x10^3/uL RBC 3.31 L (4.70-6.10) 10^6/uL Hgb 10.3 L (14.0-18.0) g/dL Hct 30.5 L (42.0-52.0) % MCV 92.1 (80.0-94.0) fL MCH 31.1 H (27.0-31.0) pg MCHC 33.8 (32.0-36.0) g/dL RDW 12.6 (12.0-15.0) % Plt Count 354 (130-450) 10^3/uL MPV 9.8 (7.4-11.4) fL Neut # (Auto) 15.5 H (1.5-6.6) 10^3/uL Lymph # (Auto) 0.9 L (1.5-3.5) 10^3/uL Avery # (Auto) 1.2 H (0.0-1.0) 10^3/uL Eos # (Auto) 0.0 (0.0-0.7) 10^3/uL Baso # (Auto) 0.0 (0.0-0.1) 10^3/uL Absolute Nucleated RBC 0.00 x10^3/uL Nucleated RBC % 0.0 /100WBC Sodium 137 (135-145) mmol/L Potassium 3.8 (3.5-5.0) mmol/L Chloride 105 (101-111) mmol/L Carbon Dioxide 24 (21-32) mmol/L Anion Gap 8.0 (6-13) BUN 27 H (6-20) mg/dL Creatinine 1.2 (0.6-1.2) mg/dL Estimated GFR (MDRD) 60 L (>89) Glucose 215 H (70-100) mg/dL Lactic Acid (0.5-2.2) mmol/L Calcium 8.2 L (8.5-10.3) mg/dL Phosphorus 2.4 L (2.5-4.6) mg/dL Magnesium 2.2 (1.7-2.8) mg/dL Total Bilirubin (0.2-1.0) mg/dL Direct Bilirubin (0.1-0.5) mg/dL AST (10-42) IU/L ALT (10-60) IU/L Alkaline Phosphatase (42-121) IU/L Troponin I High Sens 7.5 (2.3-19.7) ng/L Total Protein (6.7-8.2) g/dL Albumin (3.2-5.5) g/dL Globulin (2.1-4.2) g/dL Lipase (22-51) U/L 12/09/19 12/09/19 12/09/19 Range/Units 00:56 00:56 00:56 WBC 23.4 H (4.8-10.8) x10^3/uL RBC 4.03 L (4.70-6.10) 10^6/uL Hgb 12.3 L (14.0-18.0) g/dL Hct 37.3 L (42.0-52.0) % MCV 92.6 (80.0-94.0) fL MCH 30.5 (27.0-31.0) pg MCHC 33.0 (32.0-36.0) g/dL RDW 12.6 (12.0-15.0) % Plt Count 451 H (130-450) 10^3/uL MPV 9.8 (7.4-11.4) fL Neut # (Auto) 19.6 H (1.5-6.6) 10^3/uL Lymph # (Auto) 1.7 (1.5-3.5) 10^3/uL Avery # (Auto) 1.8 H (0.0-1.0) 10^3/uL Eos # (Auto) 0.0 (0.0-0.7) 10^3/uL Baso # (Auto) 0.1 (0.0-0.1) 10^3/uL Absolute Nucleated RBC 0.00 x10^3/uL Nucleated RBC % 0.0 /100WBC Sodium 138 (135-145) mmol/L Potassium 3.7 (3.5-5.0) mmol/L Chloride 102 (101-111) mmol/L Carbon Dioxide 24 (21-32) mmol/L Anion Gap 12.0 (6-13) BUN 28 H (6-20) mg/dL Creatinine 1.3 H (0.6-1.2) mg/dL Estimated GFR (MDRD) 55 L (>89) Glucose 197 H (70-100) mg/dL Lactic Acid 2.1 (0.5-2.2) mmol/L Calcium 8.8 (8.5-10.3) mg/dL Phosphorus 1.6 L (2.5-4.6) mg/dL Magnesium 2.3 (1.7-2.8) mg/dL Total Bilirubin 1.2 H (0.2-1.0) mg/dL Direct Bilirubin 0.2 (0.1-0.5) mg/dL AST 27 (10-42) IU/L ALT 25 (10-60) IU/L Alkaline Phosphatase 87 (42-121) IU/L Troponin I High Sens (2.3-19.7) ng/L Total Protein 7.7 (6.7-8.2) g/dL Albumin 3.6 (3.2-5.5) g/dL Globulin 4.1 (2.1-4.2) g/dL Lipase 18 L (22-51) U/L 12/09/19 Range/Units 00:56 WBC (4.8-10.8) x10^3/uL RBC (4.70-6.10) 10^6/uL Hgb (14.0-18.0) g/dL Hct (42.0-52.0) % MCV (80.0-94.0) fL MCH (27.0-31.0) pg MCHC (32.0-36.0) g/dL RDW (12.0-15.0) % Plt Count (130-450) 10^3/uL MPV (7.4-11.4) fL Neut # (Auto) (1.5-6.6) 10^3/uL Lymph # (Auto) (1.5-3.5) 10^3/uL Avery # (Auto) (0.0-1.0) 10^3/uL Eos # (Auto) (0.0-0.7) 10^3/uL Baso # (Auto) (0.0-0.1) 10^3/uL Absolute Nucleated RBC x10^3/uL Nucleated RBC % /100WBC Sodium (135-145) mmol/L Potassium (3.5-5.0) mmol/L Chloride (101-111) mmol/L Carbon Dioxide (21-32) mmol/L Anion Gap (6-13) BUN (6-20) mg/dL Creatinine (0.6-1.2) mg/dL Estimated GFR (MDRD) (>89) Glucose (70-100) mg/dL Lactic Acid (0.5-2.2) mmol/L Calcium (8.5-10.3) mg/dL Phosphorus (2.5-4.6) mg/dL Magnesium (1.7-2.8) mg/dL Total Bilirubin (0.2-1.0) mg/dL Direct Bilirubin (0.1-0.5) mg/dL AST (10-42) IU/L ALT (10-60) IU/L Alkaline Phosphatase (42-121) IU/L Troponin I High Sens 6.9 (2.3-19.7) ng/L Total Protein (6.7-8.2) g/dL Albumin (3.2-5.5) g/dL Globulin (2.1-4.2) g/dL Lipase (22-51) U/L - Other Results/Comments Other Results/Comments: EXAM: Bilateral knee: less swelling/effusion. Minimal redness/warmth ROM: 0- 90 degrees bilaterally. N/V ok distally Sepsis Event Note (H) - Evaluation Current Stage of Sepsis: Resolved Possible source of Sepsis: positive: Bone/Joint - Sepsis Criteria Sepsis Criteria: Hepatic: Bilirubin greater than 2mg/dl Assessment/Plan - Problem List (1) Knee pain Impression: Improved. No culture from right knee aspirate x 2. Unclear etiology f bilateral knee effusion -?chemo side effect PLAN: Can be discharged. Recommend a week course of antibiotics. Follow up with PCP as needed. Qualifiers: Chronicity: acute Laterality: bilateral Qualified Code(s): M25.561 - Pain in right knee; M25.562 - Pain in left knee
[2019-12-09] MEDS: RIVAROXABAN 10 MG TABLET PO SCH (16:28)
[2019-12-09 21:52] LABS: VANCOMYCIN,TROUGH 18.1 ug/mL (10.0-20.0)
[2019-12-10] MEDS: HYDROmorphone 1 MG/ML SYRINGE IVP PRN ×2 (01:23→10:33)
[2019-12-10] MEDS: SODIUM CHLORIDE FLUSH 0.9% 10 ML SYRINGE IVP SCH ×2 (01:28→01:29)
[2019-12-10] MEDS: oxyCODONE 5 MG TABLET PO PRN ×3 (02:54→14:27)
[2019-12-10 06:17] LABS: BASOPHILS % (AUTO) 0.2 %; EOSINOPHILS % (AUTO) 0.2 %; HGB - HEMOGLOBIN 9.7 g/dL (14.0-18.0); LYMPHOCYTES # (AUTO) 2.1 10^3/uL (1.5-3.5); LYMPHOCYTES % (AUTO) 19.2 %; MEAN CORPUSCULAR HEMOGLOBIN 31.1 pg (27.0-31.0); MEAN CORPUSCULAR HGB CONC 32.4 g/dL (32.0-36.0); MEAN CORPUSCULAR VOLUME 95.8 fL (80.0-94.0); MEAN PLATELET VOLUME 9.5 fL (7.4-11.4); MONOCYTES # (AUTO) 1.3 10^3/uL (0.0-1.0); MONOCYTES % (AUTO) 11.4 %; NEUTROPHILS # (AUTO) 7.7 10^3/uL (1.5-6.6); NEUTROPHILS % (AUTO) 68.5 %; PLT - PLATELET COUNT 334 10^3/uL (130-450); RED BLOOD COUNT 3.12 10^6/uL (4.70-6.10); RED CELL DISTRIBUTION WIDTH 12.9 % (12.0-15.0); WHITE BLOOD COUNT 11.2 x10^3/uL (4.8-10.8)
[2019-12-10 06:34] LABS: ALBUMIN 2.7 g/dL (3.2-5.5); ALBUMIN/GLOBULIN RATIO 0.9 (1.0-2.2); BILIRUBIN,TOTAL 0.7 mg/dL (0.2-1.0); CALCIUM 7.8 mg/dL (8.5-10.3); CRP - C-REACTIVE PROTEIN 8.8 mg/dL (0-1.0); MAGNESIUM 2.2 mg/dL (1.7-2.8); PHOSPHORUS 2.8 mg/dL (2.5-4.6); TOTAL PROTEIN 5.7 g/dL (6.7-8.2)
[2019-12-10] MEDS: SODIUM CHLORIDE FLUSH 0.9% 10 ML SYRINGE IVP PRN (06:48)
[2019-12-10] MEDS: PANTOPRAZOLE 40 MG VIAL IVP SCH (06:48)
[2019-12-10] MEDS: PATIENT OWN MED PO SCH (06:51)
[2019-12-10] MEDS ORDERED: CALCIUM GLUCONATE 1,000 MG in SODIUM CHLORIDE 0.9% 50 ML IV ONE (07:26)
[2019-12-10] MEDS ORDERED: LACTATED RINGERS 1,000 ML IV SCH (08:00)
[2019-12-10] MEDS: amLODIPine 5 MG TABLET PO SCH (08:52)
[2019-12-10] MEDS: ASPIRIN CHEW 81 MG TABLET PO SCH (08:52)
[2019-12-10] MEDS: lisinopriL 20 MG TABLET PO SCH (08:52)
[2019-12-10] MEDS: CEFEPIME 2 GM in SODIUM CHLORIDE 0.9% MINIBAG 100 ML IV SCH (08:53)
[2019-12-10] MEDS: predniSONE 20 MG TABLET PO SCH (08:53)
[2019-12-10] MEDS: polyethylene glycoL 3350 17 GM PACKET PO SCH (08:59)
[2019-12-10] MEDS: SENNA 8.6 MG TABLET PO SCH (08:59)
[2019-12-10] MEDS: DOCUSATE SODIUM 250 MG CAPSULE PO SCH (08:59)
[2019-12-10] MEDS: VANCOMYCIN INJ 1.25 GM in SODIUM CHLORIDE 0.9% 250 ML IV SCH (10:20)
--- NOTE | 2019-12-10 11:36 | Discharge Plan ---
Discharge Plan Problem Reviewed?: Yes Disposition: Home, Self Care Condition: Stable Prescriptions: cephALEXin [Keflex] 250 mg PO Q6H #28 capsule lisinopriL [Lisinopril] 20 mg PO DAILY #10 tablet Saccharomyces Boulardii [Florastor] 250 mg PO DAILY #7 capsule Diet: Regular Activity Restrictions: Activity as Tolerated Shower Restrictions: No (fall precaution) Instruction Topics: Cephalexin tablets or capsules, Lisinopril tablets Health Concerns: swelling of your knee Plan of Treatment: you were found to have fever, and swelling on your bilateral knee. Blood culture and aspiration knee fluid culture were all negative. after treated with antibiotics, aspiration of your knee fluid, your fever and swelling of knee were resolved and stable. you are prescribed antibiotics to finish the treatment course. your blood pressure meds HCTZ is hold now due to lower your sodium and potassium level. Blood pressure meds Lisinopril is prescribed to you instead. Care Goals: stabilization and improvement of your medical conditions Assessment: discussed with you about the care plan, you understood Additional Instructions or Follow Up instructions: you may followup your PCP in one week, followup your oncologist as out-pt. Should yours symptoms return or worsen, you may present ER or call 911 for help. No Smoking: If you smoke, Please STOP! Call for help.
--- NOTE | 2019-12-10 11:48 | DISCHARGE SUMMARY ---
"Discharge Summary Admit Date: 12/07/19 Discharge Date: 12/10/19 Discharging Provider: Jaden Lott Condition at Discharge: Stable Discharge Disposition: 01 Home, Self Care Discharge Facility Name: home - DIAGNOSES Admission Diagnoses: (1) Sepsis (2) Septic arthritis of knee, bilateral (3) Hypokalemia (4) Hyponatremia (5) Hypertension (6) Prostate cancer metastatic to bone (7) Hx of deep venous thrombosis Discharge Diagnoses with Status of Each Condition: (1) Sepsis resolved. pt had fever, tachycardia, elevated WBC at the admission. (2) Septic arthritis of knee, bilateral resolved. pt's bilateral knee clinic return nearly normal. There is no swelling, pain, or erythema. pt walked without difficult. pt has full ROM on his bilateral knee. aspiration fluid from knee is no bacterial growth. however pt was well responsive to antibiotics treatment. pt is prescribed antibiotics for one week per orthopedics surgeon recommendation, and orthopedics surgeon d/c pt as well. (3) Hypokalemia resolved (4) Hyponatremia resolved. hold HCTZ, keep Lisinopril for pt's home BP meds (5) Hypertension stable (6) Prostate cancer metastatic to bone stable, followup oncologist as out-pt (7) Hx of deep venous thrombosis stable/chronic (8)abdominal pain resolved. pt is s/p cholecystectomy recently, advise pt reduce fatty diet - HPI History of Present Illness: refer from Dr. Bella's HPI on 12/07/2019 This is a 69-year-old male with a past medical history significant for hypertension, prostate cancer with metastasis to the bone receiving treatment with Zytiga, history of right upper extremity DVT on Xarelto who presents today complaining of bilateral knee pain that began shortly after he was discharged home a few days ago. He was admitted earlier this month for acute cholecystitis and underwent a laparoscopic cholecystectomy and he was discharged on 03 December. He states that shortly after he went home, he noticed that both of his knees became swollen and were becoming quite painful. The pain became so severe that it restricted his range of motion and his ambulation decreased significantly. He reports no fevers at home but that he was febrile upon his arrival to the emergency department here. He reports no chills, dyspnea, chest pain. He denies any nausea, vomiting, abdominal pain. He is passing gas and he believes he has had 1 bowel movement since his cholecystectomy. He denies any dysuria, urgency, hematuria, rash. He reports no recent travel and denies a sore throat, blurry vision, nasal congestion. He reports no history of tick bites. He is not sexually active and does not recall a prior history of STDs. He reports a history of osteoarthritis but does not recall ever having rheumatoid arthritis or any autoimmune disease. Does have prostate cancer and he follows with Dr. Lott at [place]. He is currently receiving therapy with Zytiga. He is not on prednisone. He reports no IV drug use. He states he did have a meniscal tear in his left knee years ago and this was treated conservatively. He reports his knee pain is 7 out of 10 at rest but is excruciating that the level that he calls it 15 out of 10 with any movement of his knees. He reports no numbness or tingling in his lower extremities. In the emergency department, he was found to be febrile with a temperature of 38.7 C. He was tachycardic with a heart rate of 116. His blood pressure was 140/91. He was not tachypneic and saturating well on room air. Labs are significant for a white count of 16 with a left shift. His sodium is low at 131 and his potassium at 2.7. Lactic acid is normal. His total bilirubin is elevated at 3.2. His urinalysis was unremarkable. His chest x-ray did not reveal a consolidation. The emergency department physician was able to obtain synovial fluid from the right knee and the color was yellow with cloudy clarity. The fluid WBC was 16,040 with 96% neutrophils. There were no crystals seen. Initial Gram stain shows many WBCs but no organisms. Given his presentation, medicine was consulted for admission. Of note, I did discuss goals of care with the patient and he would like to be a full code. - CONSULTS | PROCEDURES Consultations: Dr. Haywood Procedures: aspiration of knee - HOSPITAL COURSE Hospital Course: pt was admitted for knee pain and swelling, and fever. pt had orthopedics consul t and had right knee joint aspiration. culture and gram staining are negative for bacterial and negative for crystal. pt was treated with IV of antibiotics. After treatment, pt has no more fever, WBC is returning to close to normal, CRP is significant reduced. pt's bilateral knee clinic return nearly normal. There is no swelling, pain, or erythema. pt walked without difficult. pt has full ROM on his bilateral knee. Dr. Haywood release pt as well. pt was d/c with one week antibiotics Keflex. the detail hospital course is as the following. (1) Sepsis resolved. pt had fever, tachycardia, elevated WBC at the admission. (2) Septic arthritis of knee, bilateral resolved. pt's bilateral knee clinic return nearly normal. There is no swelling, pain, or erythema. pt walked without difficult. pt has full ROM on his bilateral knee. aspiration fluid from knee is no bacterial growth. however pt was well responsive to antibiotics treatment. pt is prescribed antibiotics for one week per orthopedics surgeon recommendation, and orthopedics surgeon d/c pt as well. (3) Hypokalemia resolved (4) Hyponatremia resolved. hold HCTZ, keep Lisinopril for pt's home BP meds (5) Hypertension stable (6) Prostate cancer metastatic to bone stable, followup oncologist as out-pt (7) Hx of deep venous thrombosis stable/chronic (8)abdominal pain resolved. pt is s/p cholecystectomy recently, advise pt reduce fatty diet - ALLERGIES Allergies/Adverse Reactions: Allergies Allergy/AdvReac Type Severity Reaction Status Date / Time No Known Drug Allergies Allergy Verified 11/30/19 19:50 - MEDICATIONS Home Medications: Ambulatory Orders Medication Instructions Recorded Confirmed Abiraterone Acetate [Zytiga] 1,000 mg PO DAILY 12/01/19 12/07/19 Aspirin 81 mg PO DAILY 12/01/19 12/07/19 Oxycodone HCl [Oxycontin] 30 mg PO DAILY PRN 12/01/19 12/07/19 Rivaroxaban [Xarelto] 20 mg PO DAILY 12/01/19 12/07/19 oxyCODONE [Roxicodone] 30 mg PO QID PRN 12/01/19 12/07/19 amLODIPine [Norvasc] 5 mg PO DAILY #30 tablet 12/04/19 12/07/19 Saccharomyces Boulardii [Florastor] 250 mg PO DAILY #7 capsule 12/10/19 cephALEXin [Keflex] 250 mg PO Q6H #28 capsule 12/10/19 lisinopriL [Lisinopril] 20 mg PO DAILY #10 tablet 12/10/19 - PHYSICAL EXAM AT DISCHARGE General Appearance: positive: No acute distress, Alert. negative: Lethargic Eyes Bilateral: positive: Normal inspection, PERRL, EOMI, No lid inflammation ENT: positive: ENT inspection nml, Pharynx nml, No signs of dehydration. negative: Purulent nasal drainage Neck: positive: Nml inspection, Thyroid nml, No JVD, Trachea midline. negative: Thyromegaly, Lymphadenopathy (R), Lymphadenopathy (L), Stiff neck, Tracheal deviation Respiratory: positive: Chest non-tender, No respiratory distress, Breath sounds nml. negative: Wheezes, Rales, Rhonchi Cardiovascular: positive: Regular rate & rhythm, No murmur, No gallop. negative: Irregularly irregular, Extrasystoles, Tachycardia, Bradycardia, JVD present, Systolic murmur, Diastolic murmur Peripheral Pulses: positive: 2+ Abdomen: positive: Non-tender, No organomegaly, Nml bowel sounds, No distention. negative: Tenderness, Guarding, Rebound Back: positive: Nml inspection. negative: CVA tenderness (R), CVA tenderness (L) Skin: positive: Color nml, No rash, Warm, Dry. negative: Cyanosis, Diaphoresis, Pallor Extremities: positive: Non-tender, Full ROM, Nml appearance. negative: Calf tenderness, Ernesto's sign/cords Neurologic/Psychiatric: positive: Oriented x3, Motor nml, Sensation nml, Mood/affect nml. negative: Weakness, Sensory loss, Facial droop, Slurred/abnml speech, Depressed mood/affect - LABS Result Diagrams: 12/10/19 06:10 12/10/19 06:10 - SEPSIS Current Stage of Sepsis: Resolved Possible source of Sepsis: Bone/Joint Sepsis Criteria: Hepatic: Bilirubin greater than 2mg/dl - FOLLOW UP Follow Up: you were found to have fever, and swelling on your bilateral knee on the admission. Blood culture and aspiration knee fluid culture were all negative. after treated with antibiotics, aspiration of your knee fluid, your fever and swelling of knee were resolved and stable. you are prescribed antibiotics to finish the treatment course. your blood pressure meds HCTZ is hold now due to lower your sodium and potassium level. Blood pressure meds Lisinopril is prescribed to you instead. you may followup your PCP in one week, followup your oncologist as out-pt. Should yours symptoms return or worsen, you may present ER or call 911 for help. - TIME SPENT Time Spent in Discharge (Minutes): 40"
[2019-12-10 11:54] VITALS: BP 125/79
[2019-12-10 12:34] LABS: ANA SCREEN NEGATIVE (NEGATIVE)
== END 2019-12-10 14:36 | disposition home or self-care (01) | DRG 872 ==
LOC: EDUNIT# → ED → MS2 05:14 → OBSVTOIN 06:22
PROVIDERS: ADMIT Internal Medicine; ATTEND Nurse Practitioner Gerontology
PROC: 0S9C3ZX Drainage of Right Knee Joint, Percutaneous Approach, Diagnostic (ICD-10-PCS; principal; 2019-12-07)
DX: A41.9 Sepsis, unspecified organism (principal); M00.9 Pyogenic arthritis, unspecified; E87.1 Hypo-osmolality and hyponatremia; C79.51 Secondary malignant neoplasm of bone; I82.721 Chronic embolism and thrombosis of deep veins of right upper extremity; E87.6 Hypokalemia; C61 Malignant neoplasm of prostate; R17 Unspecified jaundice; I10 Essential (primary) hypertension; R10.13 Epigastric pain; M19.90 Unspecified osteoarthritis, unspecified site; K59.00 Constipation, unspecified; Z79.899 Other long term (current) drug therapy; Z79.01 Long term (current) use of anticoagulants; Z79.82 Long term (current) use of aspirin; Z79.891 Long term (current) use of opiate analgesic; Z90.49 Acquired absence of other specified parts of digestive tract
CPT/HCPCS: 20610; 36415; 71046; 73562; 73564; 74177; 80048; 80053; 80076; 80202; 81001; 83605; 83690; 83735; 84100; 84484; 84550; 85025; 85651; 86038; 86140; 86430; 87040; 87070; 87205; 89051; 89060; 93005; 93970; 96374; 96376; 99285; A9270; G0378; J1170; J3370; J7120; J7512; Q9967; 81003; 87086

== ENCOUNTER 2020-07-24 19:25 | Outpatient (CLI) | payer MEDICARE | END 2020-07-24 19:26 | disposition critical access hospital (66) | LOC: EMS 19:25 | PROVIDERS: ATTEND Surgery | DX: M25.552 Pain in left hip (principal) | CPT/HCPCS: A0425; A0429 ==

== ENCOUNTER 2020-07-24 19:28 | Observation (INO) | payer MEDICARE ==
[2020-07-24] MEDS ORDERED: HYDROmorphone 1 MG/ML CARPUJECT IVP STA (20:30)
--- NOTE | 2020-07-24 20:50 | ED Physician Documentation ---
History of Present Illness - Stated complaint Stated Complaint: GLF/ L LEG PX - Chief complaint Chief Complaint: Ext Problem - History obtained from History obtained from: Patient - History of Present Illness Timing: How many days ago (2) Pain level max: 10 Pain level now: 10 - Additonal information Additional information: Patient is a 69-year-old male with a history of prostate cancer, metastasized to the bone. 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 States L leg pain since that time. unable to walk at home Review of Systems Constitutional: denies: Fever, Chills Cardiac: denies: Chest pain / pressure Respiratory: denies: Cough GI: denies: Nausea, Vomiting, Diarrhea Skin: denies: Rash Musculoskeletal: denies: Neck pain, Back pain Neurologic: denies: Headache PD PAST MEDICAL HISTORY - Past Medical History Cardiovascular: Hypertension, Deep vein thrombosis (Right upper extremity) Respiratory: None Neuro: None Endocrine/Autoimmune: None GI: None : Other (Prostate cancer) HEENT: None Psych: None Musculoskeletal: Other (Bone metastasis secondary to prostate cancer) Derm: None - Past Surgical History Past Surgical History: No General: Colonoscopy Ortho: Other (left ankle surgery with screws) HEENT: Tonsil/Adenoidectomy - Present Medications Home Medications: Ambulatory Orders Medication Instructions Recorded Confirmed Abiraterone Acetate [Zytiga] 1,000 mg PO DAILY 12/01/19 12/07/19 Aspirin 81 mg PO DAILY 12/01/19 12/07/19 Oxycodone HCl [Oxycontin] 30 mg PO DAILY PRN 12/01/19 12/07/19 Rivaroxaban [Xarelto] 20 mg PO DAILY 12/01/19 12/07/19 oxyCODONE [Roxicodone] 30 mg PO QID PRN 12/01/19 12/07/19 amLODIPine [Norvasc] 5 mg PO DAILY #30 tablet 12/04/19 12/07/19 Saccharomyces Boulardii [Florastor] 250 mg PO DAILY #7 capsule 12/10/19 cephALEXin [Keflex] 250 mg PO Q6H #28 capsule 12/10/19 lisinopriL [Lisinopril] 20 mg PO DAILY #10 tablet 12/10/19 - Allergies Allergies/Adverse Reactions: Allergies Allergy/AdvReac Type Severity Reaction Status Date / Time No Known Drug Allergies Allergy Verified 07/24/20 19:33 - Social History Does the pt smoke?: No Smoking Status: Never smoker Does the pt drink ETOH?: No Does the pt have substance abuse?: No - Immunizations Immunizations are current?: Yes - POLST Patient has POLST: No POLST Status: Full Code PD ED PE NORMAL - Vitals Vital signs reviewed: Yes - General General: Alert and oriented X 3, No acute distress - HEENT HEENT: Moist mucous membranes - Neck Neck: Supple, no meningeal sign - Cardiac Cardiac: RRR - Respiratory Respiratory: No respiratory distress, Clear bilaterally - Abdomen Abdomen: Soft, Non tender, Non distended - Back Back: No spinal TTP - Derm Derm: Warm and dry - Extremities Extremities: Other (Tender to palpation over the left greater trochanter. Limited range of motion of the left leg secondary to pain. Neurovascular intact. Normal examination of the knee and ankle. no skin changes.) - Neuro Neuro: Alert and oriented X 3 - Psych Psych: Normal mood, Normal affect Results - Vitals Vitals: Vital Signs - 24 hr 07/24/20 07/24/20 19:33 21:53 Temperature 37.5 C Heart Rate 104 H 100 Respiratory 16 17 Rate Blood Pressure 106/64 116/74 O2 Saturation 93 97 Oxygen O2 Source Room air - Labs Labs: Laboratory Tests 07/24/20 07/24/20 21:00 21:00 WBC 15.4 H RBC 3.68 L Hgb 11.2 L Hct 34.5 L MCV 93.8 MCH 30.4 MCHC 32.5 RDW 13.7 Plt Count 362 MPV 10.2 Neut # (Auto) 12.1 H Lymph # (Auto) 1.7 Phelps # (Auto) 1.4 H Eos # (Auto) 0.0 Baso # (Auto) 0.1 Absolute Nucleated RBC 0.00 Nucleated RBC % 0.0 Sodium 134 L Potassium 4.0 Chloride 93 L Carbon Dioxide 26 Anion Gap 15.0 H BUN 73 H Creatinine 2.1 H Estimated GFR (MDRD) 31 L Glucose 144 H Calcium 8.7 Total Bilirubin 1.4 H AST 20 ALT 17 Alkaline Phosphatase 129 H Total Protein 7.9 Albumin 3.4 Globulin 4.5 H Albumin/Globulin Ratio 0.8 L Lipase 21 L - Rads (name of study) Left femur x-ray Radiology: Prelim report reviewed, EMP read contemporaneously, See rad report (No acute abnormality) PD MEDICAL DECISION MAKING - ED course Complexity details: reviewed results, re-evaluated patient, considered differential, d/w patient ED course: Patient is a 69-year-old male with metastatic prostate cancer to his bones. He has been unable to ambulate for 2 days. He is dehydrated and given IV fluids. Mild acute kidney injury. No acute findings on x-ray, but still unable to ambulate, therefore CT of the left hip was performed. He will be signed out to the oncoming emergency department physician. Awaiting results of the CT scan. If they are negative, will need road test and ensure that he can ambulate with a walker for home. This document was made in part using voice recognition software. While efforts are made to proofread this document, sound alike and grammatical errors may occur. Departure - Departure Clinical Impression: Dehydration, Prostate cancer metastatic to bone Pain of lower extremity Qualifiers: Laterality: left Qualified Code(s): M79.605 - Pain in left leg Acute kidney failure Qualifiers: Acute renal failure type: unspecified Qualified Code(s): N17.9 - Acute kidney failure, unspecified Condition: Stable
[2020-07-24 21:09] LABS: BASOPHILS # (AUTO) 0.1 10^3/uL (0.0-0.1); BASOPHILS % (AUTO) 0.3 %; EOSINOPHILS % (AUTO) 0.1 %; HGB - HEMOGLOBIN 11.2 g/dL (14.0-18.0); LYMPHOCYTES # (AUTO) 1.7 10^3/uL (1.5-3.5); LYMPHOCYTES % (AUTO) 11.2 %; MEAN CORPUSCULAR HEMOGLOBIN 30.4 pg (27.0-31.0); MEAN CORPUSCULAR HGB CONC 32.5 g/dL (32.0-36.0); MEAN CORPUSCULAR VOLUME 93.8 fL (80.0-94.0); MEAN PLATELET VOLUME 10.2 fL (7.4-11.4); MONOCYTES # (AUTO) 1.4 10^3/uL (0.0-1.0); MONOCYTES % (AUTO) 9.2 %; NEUTROPHILS # (AUTO) 12.1 10^3/uL (1.5-6.6); NEUTROPHILS % (AUTO) 78.6 %; PLT - PLATELET COUNT 362 10^3/uL (130-450); RED BLOOD COUNT 3.68 10^6/uL (4.70-6.10); RED CELL DISTRIBUTION WIDTH 13.7 % (12.0-15.0); WHITE BLOOD COUNT 15.4 x10^3/uL (4.8-10.8)
--- NOTE | 2020-07-24 21:13 | XRAY Report ---
PROCEDURE: Femur 2V LT INDICATIONS: L leg pain, h/o bony mets. TECHNIQUE: 5 views of the femur were acquired. COMPARISON: CT abdomen and pelvis 12/09/2019. Left knee radiographs 12/07/2019. FINDINGS: Bones: No fractures or dislocations. Increased density in the left inferior pubic ramus likely due t o sclerosis. Subtle areas of heterogeneity in the femoral neck. Multiple sclerotic lesions were seen on the prior CT from November 2019. No periosteal reaction. No endosteal scalloping. Soft tissues: No suspicious soft tissue calcifications or masses identified. IMPRESSION: No left hip or femur fracture. Sclerosis of the inferior pubic ramus which is most compatible with previously seen metastatic diseas e. The multiple sclerotic lesions in the femoral neck and acetabulum seen on prior CT from November 2019 are not well seen. If clinically indicated CT of the pelvis and/or femur or nuclear medicine bone scan could be performe d for further evaluation. Reviewed by: Cesar Cheng MD on 07/24/2020 9:11 PM PDT Approved by: Cesar Cheng MD on 07/24/2020 9:11 PM PDT Station ID: [id number]
[2020-07-24 21:18] LABS: ALBUMIN 3.4 g/dL (3.2-5.5); ALBUMIN/GLOBULIN RATIO 0.8 (1.0-2.2); BILIRUBIN,TOTAL 1.4 mg/dL (0.2-1.0); CALCIUM 8.7 mg/dL (8.5-10.3); CREATININE 2.1 mg/dL (0.6-1.2); TOTAL PROTEIN 7.9 g/dL (6.7-8.2)
[2020-07-24] MEDS ORDERED: KETOROLAC 30 MG/ML VIAL IVP STA (21:33)
[2020-07-24] MEDS ORDERED: CYCLOBENZAPRINE 10 MG TABLET PO STA (21:33)
[2020-07-24] MEDS ORDERED: SODIUM CHLORIDE 0.9% 1,000 ML IV STA (21:34)
[2020-07-24] MEDS ORDERED: ONDANSETRON 4 MG/2 ML VIAL IVP PRN (23:10)
[2020-07-24] MEDS ORDERED: ACETAMINOPHEN 325 MG TABLET PO PRN (23:10)
[2020-07-24] MEDS ORDERED: ONDANSETRON ODT 4 MG TABLET TL PRN (23:10)
--- NOTE | 2020-07-24 23:19 | HISTORY & PHYSICAL EXAMINATION ---
Chief Complaint - Chief Complaint Chief Complaint: hip pain after bicycling History of Present Illness - Admitted From Admitted From:: ER/Home - History Obtained From Records Reviewed: [facility] History obtained from: Dr. Dumont Exam Limitations: none - History of Present Illness HPI Comment/Other: This is a 69-year-old white male who is been admitted 3 times this year. In November 2019 he was admitted for acute cholecystitis. Discharged after surgery. A few days later he returned with bilateral knee pain and swelling. Pain was severe. He was treated as sepsis with the source of his knees being the cause. He now returns after riding on his exercise bicycle. While exercising noted sudden onset of hip pain and has been unable to weight-bear since then. He presented to the emergency room where a femur x-ray over the left leg has no fracture. He does have sclerosis and the previous citation of metastatic dise ase. CT was done and there are worsening metastatic disease lesions in the bones. Worse periostitis in the ischial tuberosity. In evaluating him for his hip pain he is also to be in acute kidney in sufficiency. With his discharge from his knee infection, his creatinine was 1.0. Today's creatinine is 2.1. Alk phos is now rising at 129. BUN is 73. On review of systems he says that he just has not been eating or drinking very much in the last week. He cannot tell me why. He keeps on repeating the question to himself and is surprised to say "I just do not know why I started not eating". He said that up to over a week ago he was eating just fine and had a great appetite. The only new thing that he can mention is starting CBD oil but that is about it. He denies fever, chills. Denies cough, chest congestion. No orthopnea. His got him a stationary bicycle machine. Essentially you stay sitting in your own chair or seat, put your feet in pedals, and you paddle in a bicycle motion with these things on the floor. That is what induced left knee pain and left hip pain. The left knee is swollen and tender as well. Dr. Hung signed out the patient to the oncoming ER doctor who has called me. He is asking for observation treatment with IV fluids for his acute kidney insu fficiency. He is also spoken to Damon Haywood about consulting for pain management in the face of metastatic disease. History - Past Medical History Cardiovascular: reports: Hypertension, Deep vein thrombosis (Right upper extremity) Respiratory: reports: None Neuro: reports: None Endocrine/Autoimmune: reports: None GI: reports: Cholelithiasis (with gallbladder removed November 2019) : reports: Other (Prostate cancer) HEENT: reports: None Psych: reports: None Musculoskeletal: reports: Other (Bone metastasis secondary to prostate cancer, bilateral knee pain and effusions after GB surgery w admit for infected knees) Derm: reports: None MRSA Hx?: No Other Past Medical History: Prostate cancer w/ mets to bones - Past Surgical History General: reports: Colonoscopy Ortho: reports: Other (left ankle surgery with screws) HEENT: reports: Tonsil/Adenoidectomy - Family & Social History Family History Comment/Other: Reports his father had an aneurysm and a stroke in the past. He does not recall any other family history. Living arrangement: At home Living Situation: With spouse/s.o. Social History Notes: He has lived here on [facility] for the past 26 years with his . 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 He never smoked or drank alcohol. He previously smoked marijuana but quit over 1 year ago. - Substance History Use: Uses substance without health or social issues: NONE Abuse: Recurrent use of substance despite neg consequences: NONE Dependence: Experiences withdrawal or developed tolerances: NONE - POLST Patient has POLST: No POLST Status: Full Code Meds/Allgy - Home Medications Home Medications: Ambulatory Orders Medication Instructions Recorded Confirmed Abiraterone Acetate [Zytiga] 1,000 mg PO DAILY 12/01/19 12/07/19 Aspirin 81 mg PO DAILY 12/01/19 12/07/19 Oxycodone HCl [Oxycontin] 30 mg PO DAILY PRN 12/01/19 12/07/19 Rivaroxaban [Xarelto] 20 mg PO DAILY 12/01/19 12/07/19 oxyCODONE [Roxicodone] 30 mg PO QID PRN 12/01/19 12/07/19 amLODIPine [Norvasc] 5 mg PO DAILY #30 tablet 12/04/19 12/07/19 Saccharomyces Boulardii [Florastor] 250 mg PO DAILY #7 capsule 12/10/19 cephALEXin [Keflex] 250 mg PO Q6H #28 capsule 12/10/19 lisinopriL [Lisinopril] 20 mg PO DAILY #10 tablet 12/10/19 - Allergies Allergies/Adverse Reactions: Allergies Allergy/AdvReac Type Severity Reaction Status Date / Time No Known Drug Allergies Allergy Verified 07/24/20 19:33 Review of Systems - Constitutional Constitutional: reports: Fatigue, Malaise, Poor appetite - Eyes Eyes: reports: Corrective lenses. denies: Pain, Spots in vision, Vision loss - Ears, Nose & Throat Ears, Nose & Throat: denies: Nasal pain, Nasal discharge, Sore throat, Hoarseness - Cardiovascular Cariovascular: reports: Decr. exercise tolerance. denies: Irregular heart rate, Palpitations, Chest pain, Edema, Exertional dyspnea - Respiratory Respiratory: denies: Cough, Sputum production, Wheezing, Hemoptysis, Orthopnea, SOB at rest, SOB with exertion - Gastrointestinal Gastrointestinal: reports: Nausea (Vomited twice this last week), Vomiting, Bloating, Poor appetite. denies: Abdominal pain, Abdominal distention, Change in bowel habits, Coffee grounds emesis, Reflux/heartburn - Genitourinary Genitourinary: reports: Other (Urine turned much darker over the last 3 days). denies: Dysuria, Frequency, Urgency, Hematuria - Musculoskeletal Musculoskeletal: reports: Muscle pain, Joint pain (Left knee and left hip). denies: Back pain, Muscle aches, Stiffness - Integumentary Integumentary: denies: Rash, Pruritis, Lesions - Neurological Neurological: reports: General weakness. denies: Focal weakness, Headache, Dizziness, Memory problems, Pre-existing deficit - Psychiatric Psychiatric: denies: Depression, Anxiety, Suicidal, Hallucinations - Endocrine Endocrine: denies: Polyuria, Polydypsia, Polyphagia - Hematologic/Lymphatic Hematologic/Lymphatic: reports: Anemia, Bruising, Blood clots Prior Level of Functionality: independent w ADLs, drives, exercises.Then this last week started slow down. A week ago he mowed the lawn. Could not do it today. Exam - Vital Signs Reviewed Vital Signs: Yes Vital Signs: Vital Signs x48h Temp Pulse Resp BP Pulse Ox 07/24/20 23:09 88 16 130/86 H 98 07/24/20 21:53 100 17 116/74 97 07/24/20 19:33 37.5 C 104 H 16 106/64 93 - Physical Exam General Appearance: positive: No acute distress, Alert (But finds himself repetitive, and also unable to remember everything when asked questions) Eyes Bilateral: positive: PERRL, EOMI ENT: positive: Dry mucous membranes, Other (Voice is hoarse) Neck: positive: No JVD. negative: Lymphadenopathy (R), Lymphadenopathy (L), Stiff neck, Carotid bruit Respiratory: positive: No respiratory distress. negative: Wheezes, Rales, Rhonchi Cardiovascular: positive: Regular rate & rhythm, Systolic murmur. negative: Gallop/S4, Friction rub Peripheral Pulses: positive: 1+ Abdomen: positive: Non-tender, No organomegaly, Nml bowel sounds, No distention Skin: positive: Warm, Dry Extremities: positive: Other (Tender left knee, with effusion. Lateral left hip painful over the trochanter. Also over medial groin. Pain limits range of motion) Neurologic/Psychiatric: positive: Oriented x3, CN's nml (2-12), Motor nml Conclusion/Plan - Problem List (1) KRISTEN (acute kidney injury) Conclusion/Plan: most likely due to dehydration but he does have metastatic prostate ca. no hx of obstruction before. He is also on lisinopril Plan: Hydrate Renal US for obstruction (2) Acute pain of left hip Conclusion/Plan: not from fx according to CT and film. Dr. Damon Haywood will see him in am. At home he takes oxycodone 30 mg 4 times daily as well as 30 mg extended release daily as needed. We will order that for him here. (3) Acute pain of left knee Conclusion/Plan: With left knee effusion. Similar to the pain he had with his knee inflammation after his gallbladder surgery. Yet he denies fevers, rigors. Plan: Orthopedic surgery consultation in the morning (4) History of deep vein thrombosis Conclusion/Plan: stay on xarelto (5) Prostate cancer metastatic to bone Conclusion/Plan: He continues to take treatment. He said is no longer Zytiga but cannot remember the name of the pill he is taking. Plan: Ultrasound to make sure his metastatic disease is not obstructing urine - Lab Results Lab results reviewed: Yes Fish Bones: 07/24/20 21:00 07/24/20 21:00 - Diagnostic Imaging Results Diagnostic Imaging Results: positive: Final report reviewed Core Measures - Anticipated LOS I expect patient to be DC'd or transferred within 96 hours.: Yes - DVT/VTE - Prophylaxis VTE/DVT Device ordered at admit?: Yes
--- NOTE | 2020-07-25 00:11 | ED Physician Documentation ---
ED Addendum - Addendum Addendum: 07/25/20 00:07 and I reviewed the patient's history, examination findings and the results of all of his studies with the exception of his CT of the hip at change of shift. He requested that I follow-up on the results of this. I subsequently reviewed the patient's history with him, examined him and my findings were consistent with those noted by Dr. Byers. I subsequently reviewed the preliminary radiology report and the images of the patient's CT. Impression: Worsening metastatic disease; the lesions are increased in size and number. There is worsening periostitis at the ischial tuberosity. Decreased attenuation at the insertion of the hamstring tendons may indicate tendinopathy or partial tear. This can be further evaluated with nonemergent MRI. I subsequently discussed the case with the on-call orthopedist, Dr. Haywood. I reviewed the patient's history, examination findings and the results of his studies with him. He will be happy to consult on the patient to further evaluate him and see what if any options are available to the patient. Lauren garcialy he is not able to weight-bear or ambulate. Additionally, he appears to have some acute renal insufficiency. He reports that his urine has been darker over the past week because he has been using CBD. He was treated in the emergency room with a bolus of IV normal saline. I also discussed his case with the on-call hospitalist Dr. Graves. The patient will be admitted to her service overnight for observation and the orthopedist will consult on him in the morning.
[2020-07-25] MEDS: LACTATED RINGERS 1,000 ML IV SCH ×2 (00:45→05:01)
[2020-07-25] MEDS ORDERED: oxyCODONE 5 MG TABLET PO PRN (00:49)
[2020-07-25] MEDS: SODIUM CHLORIDE FLUSH 0.9% 10 ML SYRINGE IVP PRN ×2 (00:51→05:08)
[2020-07-25] MEDS: HYDROmorphone 0.5 MG/0.5 ML SYRINGE IVP PRN ×4 (00:51→16:11)
[2020-07-25] MEDS: SODIUM CHLORIDE FLUSH 0.9% 10 ML SYRINGE IVP SCH ×3 (00:52→16:11)
[2020-07-25 06:24] LABS: CALCIUM 8.4 mg/dL (8.5-10.3); CREATININE 1.9 mg/dL (0.6-1.2)
--- NOTE | 2020-07-25 08:54 | PHARMACY PROGRESS NOTE ---
- Best Possible Medication History Admit Date and Time: 07/24/20 6081 Processed by: Pharmacy Medication History completed: Yes Patient Interview: Completed Secondary Source(s): Physician records (PATIENT INTERVIEWED BY PHARMACY. PATIENT ABLE TO CONFIRM HOME MEDICATIONS ), Pharmacy records, Insurance records As the person ultimately responsible for medication therapy, providers are able to order a medication from an existing home medication list in [facility] via the "Reconcile Routine" prior to Confirmation of that medication by network and threat support specialist. Such practice is discouraged except when the physician, in their clinical judgment, deems that a medical need exists for a medication without regard to previous use.
[2020-07-25 08:56] LABS: ALBUMIN 3.1 g/dL (3.2-5.5); BILIRUBIN,DIRECT 0.3 mg/dL (0.1-0.5); BILIRUBIN,TOTAL 1.2 mg/dL (0.2-1.0); TOTAL PROTEIN 6.9 g/dL (6.7-8.2)
[2020-07-25] MEDS ORDERED: oxyCODONE ER 10 MG TABLET PO SCH ×3 (09:00→21:00)
[2020-07-25] MEDS ORDERED: ASPIRIN CHEW 81 MG TABLET PO SCH (09:00)
[2020-07-25] MEDS ORDERED: SODIUM CHLORIDE 0.9% 1,000 ML IV SCH (09:00)
--- NOTE | 2020-07-25 09:03 | CT Report ---
PROCEDURE: LOWER EXTREMITY WO - LT INDICATIONS: L hip pain, h/o mets to the leg. TECHNIQUE: Noncontrast 3 mm axial sections acquired of the , with coronal and sagittal reformats. COMPARISON: CT of the abdomen and pelvis dated 12/09/2019. FINDINGS: Image quality: Excellent. Bones: When compared with the prior CT dated 12/09/2019. There are increased sclerotic bone metastase s throughout the left iliac, ischii, and proximal femur. No displaced fractures visualized. For examp le, the sclerotic metastases within the posterior ischium now have a confluent appearance with very l ittle normal-appearing cortical or medullary bone present. Periostitis or a soft tissue component has increased in extent when compared to prior study. Soft tissues: The joint space is preserved. Muscles have a normal appearance without intramuscular m ass, or free fluid. As before, calcification and decreased attenuation is noted at the insertion of t he hamstring tendon on the posterior ischial tuberosity. Limited visualization of the bowel has colette l appearance. The bladder is thin-walled and fluid-filled where visualized. IMPRESSION: 1. Progression of sclerotic metastases throughout the iliac, technetium, and proximal femur when comp ared with the prior CT from 12/09/2019. No displaced fracture visualized.; However periostitis surroun ding the inferior obturator may represent healing subacute fracture. 2. Persistent, stable appearing low attenuation and calcification at the insertion of the hamstring t endon at the initial tuberosity. The significance of this finding is unclear. If further characteriza tion is warranted, MRI of this region could be used to exclude tendon tear or tendinopathy. These findings are concordant with the overnight interpretation. Reviewed by: America Tineo MD on 07/25/2020 9:02 AM PDT Approved by: America Tineo MD on 07/25/2020 9:02 AM PDT Station ID: [id number]
--- NOTE | 2020-07-25 09:16 | Ultrasound Report ---
PROCEDURE: Retroperitoneal INDICATIONS: new mariela TECHNIQUE: Real-time scanning was performed of the retroperitoneal organs, with image documentation. COMPARISON: CT of the abdomen and pelvis dated 12/09/2019. FINDINGS: Kidneys: Kidneys are normal in size. Right kidney measures 12.0 cm long; left kidney measures 12.9 cm long. Right renal cortical thickness is 1.5 cm; left renal cortical thickness is 1.6 cm. No andrea d masses, hydronephrosis, or nephrolithiasis. There is likely a prominent column of Kendell within th e midpole of the left kidney which measures 4.6 x 3.5 x 3.2 cm. Prevoid bladder volume is 254.3 cm and post void bladder volume is 54.73 cm. Bilateral ureteral jets are visualized. Prostate has a heterogeneous appearance and measures 3.3 cm in diameter. Miscellaneous: No free abdominal fluid. IMPRESSION: 1. No hydronephrosis or nephrolithiasis. 2. Probable prominent column of Kendell within the left kidney corroborated by the CT dated 12/09/2019. 3. Small postvoid residual. Reviewed by: America Tineo MD on 07/25/2020 9:15 AM PDT Approved by: America Tineo MD on 07/25/2020 9:15 AM PDT Station ID: [id number]
[2020-07-25] MEDS ORDERED: oxyCODONE 30 MG TABLET PO PRN (10:45)
[2020-07-25] MEDS ORDERED: XTANDI PO SCH (11:00)
[2020-07-25 14:13] LABS: CALCIUM 8.5 mg/dL (8.5-10.3); CREATININE 1.3 mg/dL (0.6-1.2); PHOSPHORUS 2.7 mg/dL (2.5-4.6)
--- NOTE | 2020-07-25 15:15 | CONSULTATION NOTE ---
DATE OF SERVICE: 07/25/2020 Physician: Damon Haywood MD REFERRING PHYSICIAN: Mike Byers MD of the Emergency Room Department. CHIEF COMPLAINT: "My posterior left hip area is tender." HISTORY OF PRESENT ILLNESS: Patient is a 69-year-old male with known metastatic prostatic cancer involving his pelvis and femur who was in his usual state of health until about 2 weeks ago. He said that he was spending all day driving his riding lawnmower, bouncing up and down in his yard w all mowing the lawn, and started noticing some posterior left hip discomfort at that time. Was still unable to stand or walk, albeit with some discomfort. Over the next week with rest, the symptoms did improve. About 2 days ago, he was exercising, using stationary bicycle exercise equipment, when he again noticed an exacerbation of his posterior left hip discomfort. It was to the point where he thom ght medical attention in the Emergency Room last evening. Patient was subsequently admitted for evid ence of an acute kidney injury noted on his lab work in the Emergency Room, as well as for pain manag ement for the left hip problem. PHYSICAL EXAMINATION: Patient's left leg was examined. There was some mild tenderness in the cook chili ior left region. No real tenderness elsewhere in the leg. We could rotate the leg satisfactorily wh ile patient was supine with minimal discomfort. Neurovascular appears to be intact distally in the l ower extremity. Good capillary filling noted. Good toe motion noted. Sensation intact throughout. CT scan of the pelvis and proximal left femur were reviewed. There is evidence of metastatic tumor d isease as was described in the report. No gross fractures appreciated either in the femur or in the pelvic region. ASSESSMENT 1. Probable mild left hamstring contusion/strain, less symptomatic today on evaluation compared to h is presentation in the Emergency Room. 2. Metastatic prostatic disease involving the ileum and proximal femurs, chronic condition. No new acute fractures noted on workup today. PLAN: It appears as though patient is clinically improved and that his radiographic presentation is somewhat stable with his metastatic prostatic cancer. He is followed by an oncologist over at the [facility]. Patient will be advancing his activities as tolerated, treated with mild pain medicine s as needed. Will follow up as needed with his oncologist over at [facility] and his primary car e at [facility] as well. TD: 07/25/2020 11:20
--- NOTE | 2020-07-25 15:26 | Discharge Plan ---
Discharge Plan Problem Reviewed?: Yes Disposition: Home, Self Care Condition: Stable Diet: Regular Activity Restrictions: Activity as Tolerated Instruction Topics: ED Sprain Hip Health Concerns: You were in Observation status for dehydration causing kidney damage. This was treated with many liters of IV fluids and has improved, and kidney function is nearly normal. You also were seen by the Orthopedic surgeon for pain in the leg and hip and Dr. Haywood, the Orthopedist, diagnosed a muscle strain, there was no fracture. You can undertake exercise as tolerated by the muscle and by your pain. Please should hydrate better and increase your oral intake to stay hydrated and have good nutrition. Resume all your usual prehospital medications. Continue to see your Oncologist as you have in the past. Plan of Treatment: As above. Care Goals: Improvement in symptoms and stabilization are the goals. Assessment: Patient understands, and instructions were given at discharge. Additional Instructions or Follow Up instructions: If you have new or worsening symptoms, call your PCP for advice or come to the ER. No Smoking: If you smoke, Please STOP! Call for help.
[2020-07-25 16:39] VITALS: BP 120/68
[2020-07-25] MEDS ORDERED: RIVAROXABAN 10 MG TABLET PO SCH (17:00)
[2020-07-25] MEDS ORDERED: OXYCODONE HCL 30 MG PO SCH (21:00)
--- NOTE | 2020-07-25 21:52 | DISCHARGE SUMMARY ---
Discharge Summary Admit Date: 07/24/20 Discharge Date: 07/25/20 Discharging Provider: Vickie Metz Md Primary Care Provider: Huan Garcia MD Code Status: Attempt Resuscitation Condition at Discharge: Stable Discharge Disposition: 01 Home, Self Care - DIAGNOSES Discharge Diagnoses with Status of Each Condition: 1. Acute kidney injury 2. Dehydration 3. Anorexia 4. Acute pain of left hip 5. Acute pain of left knee 6. History of DVT 7. Prostate cancer metastatic to bone - HPI History of Present Illness: This is a 69-year-old white male who is been admitted 3 times this year. In November 2019 he was admitted for acute cholecystitis. Discharged after surgery. A few days later he returned with bilateral knee pain and swelling. Pain was severe. He was treated as sepsis with the source of his knees being the cause. He now returns after riding on his exercise bicycle. While exercising noted sudden onset of hip pain and has been unable to weight-bear since then. He presented to the emergency room where a femur x-ray over the left leg has no fracture. He does have sclerosis and the previous citation of metastatic disease. CT was done and there are worsening metastatic disease lesions in the bones. Worse periostitis in the ischial tuberosity. In evaluating him for his hip pain he is also to be in acute kidney insufficiency. With his discharge from his knee infection, his creatinine was 1.0. Today's creatinine is 2.1. Alk phos is now rising at 129. BUN is 73. On review of systems he says that he just has not been eating or drinking very much in the last week. He cannot tell me why. He keeps on repeating the question to himself and is surprised to say "I just do not know why I started not eating". He said that up to over a week ago he was eating just fine and had a great a ppetite. The only new thing that he can mention is starting CBD oil but that is about it. He denies fever, chills. Denies cough, chest congestion. No orthopnea. His got him a stationary bicycle machine. Essentially you stay sitting in your own chair or seat, put your feet in pedals, and you paddle in a bicycle motion with these things on the floor. That is what induced left knee pain and left hip pain. The left knee is swollen and tender as well. Dr. Hung signed out the patient to the oncoming ER doctor who has called me. He is asking for observation treatment with IV fluids for his acute kidney insufficiency. He is also spoken to Damon Haywood about consulting for pain manage ment in the face of metastatic disease. - Past Medical History Cardiovascular: reports: Hypertension, Deep vein thrombosis (Right upper extremity) Respiratory: reports: None Neuro: reports: None Endocrine/Autoimmune: reports: None GI: reports: Cholelithiasis (with gallbladder removed November 2019) : reports: Other (Prostate cancer) HEENT: reports: None Psych: reports: None Musculoskeletal: reports: Other (Bone metastasis secondary to prostate cancer, bilateral knee pain and effusions after GB surgery w admit for infected knees) Derm: reports: None MRSA Hx?: No Other Past Medical History: Prostate cancer w/ mets to bones - CONSULTS | PROCEDURES Procedures: 1. plain film left femur. No hip or femur fracture. Sclerosis of the inferior pubic ramus which is most compatible with previous seen metastatic disease. If clinically indicated do CT. 2. Lower extremity CT with progression of sclerotic metastases throughout the iliac, technetium, proximal fever when compared with the prior CT from December 09, 2019. No displaced fracture visualized. Periostitis surrounding the inferior obturator may represent healing subacute fracture. Persistent, stable appearing low-attenuation and calcification at the insertion of the hamstring tendon at the initial tuberosity. 3. Retroperitoneal ultrasound done to rule out obstruction. No hydronephrosis or nephrolithiasis. Prominent column of [place] within the left kidney. Small postvoid residual. - HOSPITAL COURSE Hospital Course: Hydrated with close to 4 L of fluid. Creatinine started at 2.1 and went to 1.3. Anorexia and dehydration Seem to be the cause ofthe problem With his acute kidney insufficiency. Cannot tell if it is from cancer side effects or new use of CBD oil. Was seen by orthopedics who feel he has a mild left hamstring con tusion/strain. Calcification at the hamstring insertion site approximately corroborates his pain. No acute fractures. May be from new exercise that he is doing and causing overuse. I have asked him to see his primary care provider. Please see for follow-up labs. Encourage p.o. intake on a regular basis. At discharge he was 36.9. Heart rate 100. Blood pressure 120/68. Orthostatics were done and he was not orthostatic. Respiratory rate 16. 94% on room air. 6 foot inch, 93 kg white male, moderately overweight. Pleasant, cooperative, and much improved with regards to hip pain. No JVD. Lungs without crackles rhonchi wheezing. PMI normally placed. Regular rate and rhythm. Minimal pedal edema. Ambulating in the room without assistance. Ate 50% of breakfast, 25% of lunch. Strongly encouraged to make sure he ate and drank enough at home so that this did not happen again. - ALLERGIES Allergies/Adverse Reactions: Allergies Allergy/AdvReac Type Severity Reaction Status Date / Time No Known Drug Allergies Allergy Verified 07/24/20 19:33 - MEDICATIONS Home Medications: Ambulatory Orders Medication Instructions Recorded Confirmed Oxycodone HCl [Oxycontin] 30 mg PO BID 12/01/19 07/25/20 Rivaroxaban [Xarelto] 20 mg PO DAILY 12/01/19 07/25/20 oxyCODONE [Roxicodone] 30 mg PO QID PRN 12/01/19 07/25/20 Enzalutamide [Xtandi] 160 mg PO DAILY 07/25/20 07/25/20 - LABS Result Diagrams: 07/24/20 21:00 07/25/20 13:59
[2020-07-26] MEDS ORDERED: NON FORMULARY MED (Enzalutamide [Xtandi] 160 MG) PO SCH (09:00)
[2020-07-26] MEDS ORDERED: NON FORMULARY MED (Rivaroxaban [Xarelto] 20 MG) PO SCH (09:00)
== END 2020-07-25 16:47 | disposition home or self-care (01) ==
LOC: EDUNIT# → ED 19:28 → MS2 23:10
PROVIDERS: ADMIT Specialist; ATTEND Internal Medicine
DX: N17.9 Acute kidney failure, unspecified (principal); E86.0 Dehydration; R63.0 Anorexia; S76.812A Strain of other specified muscles, fascia and tendons at thigh level, left thigh, initial encounter; M25.552 Pain in left hip; M25.462 Effusion, left knee; Y93.A1 Activity, exercise machines primarily for cardiorespiratory conditioning; Y92.009 Unspecified place in unspecified non-institutional (private) residence as the place of occurrence of the external cause; C61 Malignant neoplasm of prostate; C79.51 Secondary malignant neoplasm of bone; M86.9 Osteomyelitis, unspecified; I10 Essential (primary) hypertension; Z79.82 Long term (current) use of aspirin; Z79.899 Other long term (current) drug therapy; Z79.891 Long term (current) use of opiate analgesic; Z79.01 Long term (current) use of anticoagulants; Z86.718 Personal history of other venous thrombosis and embolism; Z68.27 Body mass index [BMI] 27.0-27.9, adult
CPT/HCPCS: 36415; 73552; 73700; 76770; 80048; 80053; 80076; 83690; 84100; 85025; 96361; 96374; 96375; 96376; 99284; 99285; A9270; G0378; J1170; J7120; 80069